=== PATIENT | male | born 1950 | race Caucasian/White ===

== ENCOUNTER 2018-10-01 23:35 | Inpatient (IN) | payer MEDICARE, OTHER ==
[~2018-10-01] VITALS: Ht 177.8 cm; Wt 81.1 kg
[2018-10-02] VITALS (75 sets, daily range): BP systolic 86–137; BP diastolic 65–98; PULSE 89–148; RESP 16–29; Ht 177.8 cm; Wt 81.1 kg
[2018-10-02] MEDS ORDERED: SODIUM CHLORIDE 0.9% 1L BAG IV* STA (00:04)
[2018-10-02] MEDS ORDERED: CEFEPIME 2GM/50 ML (PMX) 50 ML IVPB STA (00:04)
[2018-10-02] MEDS ORDERED: NORepinephrine 8MG/250 ML (PMX 250 ML IV STA (00:04)
[2018-10-02] MEDS ORDERED: VANCOMYCIN 1 GM (PMX) 250 ML IVPB ONE (00:30)
[2018-10-02] MEDS ORDERED: SUCCINYLCHOLINE CHLORIDE 100 MG/5 ML SYG IV ONE (00:30)
--- NOTE | 2018-10-02 02:03 | QN ---
Documentation Comment H&P dict a/p 1. sepsis?, presumed pneumonia, however no cxr to review, not urinary source, consider also non-infectious causes of hypovolemia 2. DM OOC with glucose >700, anion gap >30, await abg, high volume fluids, doubt DKA, suspect acidosis and gap related acute renal failure 3. numerous prior cva 4. acute renal failure, likely pre-renal, check renal us and fractional excretion Sodium (b) hyperrosmolar, give IVF (c) hyperNa 5. resp failure, cont vent support 6. cards: elevated trop, trend values, check echo (b) support bp with pressor prn (c) hx a fib CANDELARIA ARROYO MD Oct 02, 2018 02:03
[2018-10-02] MEDS ORDERED: ACCU-CHEK XX SCH (02:30)
[2018-10-02] MEDS ORDERED: PIPER-TAZO 3.375 GM IV (PMX) 100 ML IVPB SCH (02:30)
[2018-10-02] MEDS ORDERED: DEXTROSE 50% 50 ML SYRINGE IV PRN ×4 (02:30→03:00)
[2018-10-02] MEDS ORDERED: SOD CHLORIDE 0.9% 1,000 ML IV SCH (02:30)
[2018-10-02] MEDS ORDERED: ONDANSETRON 4 MG INJ IV PRN (02:30)
[2018-10-02] MEDS ORDERED: VANCOMYCIN IV PER PHARMACY XX SCH (02:30)
[2018-10-02] MEDS ORDERED: ACETAMINOPHEN 325 MG TAB PO PRN (02:30)
[2018-10-02] MEDS ORDERED: NA POLYST SULFON 15 GM/60 ML BTL PO ONE (02:30)
[2018-10-02] MEDS ORDERED: morphine 2 MG INJ IV PRN (02:30)
--- NOTE | 2018-10-02 02:35 | ERD ---
ER Documentation Chief Complaint Chief Complaint HYPOTENSION HPI This is a 68-year-old male sent in from intermediate facility for lethargy and hypotension. Found to have an elevated heart rate as well. History per EMS run sheet skilled nursing transfer she as patient cannot provide history at this time. ROS All systems reviewed and are negative except as per history of present illness. Physical Exam Vitals Vital Signs Date Temp Pulse Resp B/P (MAP) Pulse Ox O2 O2 Flow FiO2 Time Delivery Rate 10/02/18 144 27 99 50 01:14 10/01/18 97.6 56 30 77/45 (56) 97 23:57 10/01/18 Bag Valve 15 23:47 Mask Physical Exam Const: No acute distress Head: Atraumatic Eyes: Normal Conjunctiva ENT: Normal External Ears, Nose and Mouth. Neck: Full range of motion. No meningismus. Resp: Clear to auscultation bilaterally Cardio: Regular rate and rhythm, no murmurs Abd: Soft, non tender, non distended. Normal bowel sounds Skin: No petechiae or rashes Back: No midline or flank tenderness Ext: No cyanosis, or edema Neur: Awake and alert Psych: Normal Mood and Affect Result Diagram: 10/01/18 0002 10/01/18 0100 Results 24 hrs Laboratory Tests Test 10/01/18 00:02 10/01/18 01:00 10/01/18 01:37 10/02/18 00:09 White Blood 23.3 10^3/ul Count Red Blood Count 6.16 10^6/ul Hemoglobin 18.0 g/dl Hematocrit 60.1 % Mean Corpuscular 97.6 fl Volume Mean Corpuscular 29.2 pg Hemoglobin Mean Corpuscular 30.0 g/dl Hemoglobin Maureen nt Red Cell 11.9 % Distribution Width Platelet Count 394 10^3/UL Mean Platelet 12.3 fl Volume Immature 0.600 % Granulocytes % Neutrophils % 89.1 % Lymphocytes % 4.0 % Monocytes % 5.9 % Eosinophils % 0.0 % Basophils % 0.4 % Nucleated Red 0.0 /100WBC Blood Cells % Immature 0.130 10^3/ul Granulocytes # Neutrophils # 20.8 10^3/ul Lymphocytes # 0.9 10^3/ul Monocytes # 1.4 10^3/ul Eosinophils # 0.0 10^3/ul Basophils # 0.1 10^3/ul Nucleated Red 0.0 10^3/ul Blood Cells # Prothrombin Time 18.8 Sec Prothrombin Time 1.5 Ratio INR 1.56 International Normalized Ratio Activated 45.4 Sec Partial Thrombop last Time Sodium Level 157 mmol/L Potassium Level 5.6 mmol/L Chloride Level 116 mmol/L Carbon Dioxide 16 mmol/L Level Anion Gap 25 Blood Urea 109 mg/dl Nitrogen Creatinine 5.44 mg/dl Est Glomerular 11 mL/min Filtrat Rate mL/min Glucose Level 717 mg/dl Calcium Level 8.8 mg/dl Troponin I 0.250 ng/ml Urine Color YELLOW Urine Clarity SLIGHTLY CLOUDY Urine pH 5.0 Urine Specific 1.016 [place] Urine Ketones NEGATIVE mg/dL Urine Nitrite NEGATIVE mg/dL Urine Bilirubin NEGATIVE mg/dL Urine NEGATIVE mg/dL Urobilinogen Urine Leukocyte NEGATIVE Brian/ul Esterase Urine 45 /HPF Microscopic RBC Urine 2 /HPF Microscopic WBC Urine Hemoglobin 2+ mg/dL Urine Glucose 3+ mg/dL Urine Total 2+ mg/dl Protein POC Venous 7.4 mmol/L Lactate Test 10/02/18 01:30 Blood Gas Blood arterial Specimen Source Arterial Blood 10/02/2018 1:50: Date Drawn 46 AM Arterial Blood 7.289 pH (Temp corrected) Arterial Blood 33.1 mmhg pCO2 (Temp correct) Arterial Blood 100.7 mmHG pO2 (Temp corrected) Arterial Blood 15.5 mmol/L HCO3 Arterial Blood -9.8 mmol/L Base Excess Arterial Blood 96.7 mmHG Oxygen Saturatio n Justice Test ACCEPTAB Arterial Blood Right Radial Gas Puncture Site Arterial 0 % Blood Carboxyhem oglobin Arterial Blood 0.4 % Methemoglobin Blood Gas A-a O2 218.6 mmHg Differential Oxyhemoglobin 96.3 % Percent Blood Gas 37.0 C Temperature Blood Gas 16.0 Respiration Rate Blood Gas Actual 20 Respiration Rate Blood Gas VENT - AC Modality FiO2 50.0 % Blood Gas Tidal 500.0 mL Volume Blood Gas Low 5.0 cmH2O PEEP Setting Blood Gas D MANA BAILON Critical Value Read Back Blood Gas UP Notified Whom Blood Gas 10/02/2018 2:10: Notified Time 47 AM Current Medications Medications Dose Sig/Marcie Start Time Status Last (Trade) Ordered Route PRN Stop Time Admin Dose Reason Admin Sodium 2,450 ml BOLUS OVER 2 10/02/18 DC 10/02/18 Chloride HOURS STAT 00:04 00:15 (NS) IV* 10/02/18 00:06 250 ml @ ONCE STAT 10/02/18 10/02/18 Norepinephrin 7.5 mls/hr IV 00:04 00:39 e 10/03/18 09:23 Cefepime HCl 50 ml @ ONCE STAT 10/02/18 DC 10/02/18 100 mls/hr IVPB 00:04 00:15 10/02/18 00:33 Vancomycin 250 ml @ ONCE ONCE 10/02/18 10/02/18 HCl 125 mls/hr IVPB 00:30 00:45 10/02/18 02:29 100 mg ONCE ONCE 10/02/18 DC 10/02/18 Succinylcholi IV 00:30 00:25 ne Chloride 10/02/18 00:31 (Anectine Syringe) Sodium 1,000 ml @ Q4H IV 10/02/18 UNV Chloride 250 mls/hr 02:30 Discontinue PROTOCOL 10/02/18 UNV Miscellaneous all previ... ONCE XX 02:30 10/02/18 02:31 Information (* Miscellaneous Pharmacy Order) Diagnostic 1 ea Q1H XX 10/02/18 UNV Test (Pha) 02:30 (Accu-Chek) Treatment Per 10/02/18 UNV Miscellaneous of protocol XX 02:30 Hypoglycemia: Information 1.BG 51... (* Miscellaneous Pharmacy Order) Dextrose 25 ml Q15M PRN 10/02/18 UNV (D50w IV DECREASED 02:30 Syringe) GLUCOSE Dextrose 50 ml Q15M PRN 10/02/18 UNV (D50w IV DECREASED 02:30 Syringe) GLUCOSE Sodium 1,000 ml @ Q4H IV 10/02/18 UNV Chloride 250 mls/hr 02:30 Vancomycin VANCOMYCIN PER 10/02/18 UNV HCl (Vanco PER PHARMACY PROTOCOL XX 02:30 Iv Per Pharmacy) Piperacillin 100 ml @ Q8H IVPB 10/02/18 UNV Sod/ 200 mls/hr 02:30 Tazobactam Sod 650 mg Q4H PRN 10/02/18 UNV Acetaminophen PO 02:30 (Tylenol pain/fever Tab) Ondansetron 4 mg Q4H PRN 10/02/18 UNV HCl (Zofran IV nausea 02:30 Inj) Morphine 2 mg Q2 PRN IV 10/02/18 UNV Sulfate pain 02:30 (morphine) Procedures/MDM EKG: Rate/Rhythm: Sinus tachycardia QRS, ST, T-waves: ST elevations noted in precordial leads Impression: [No evidence of ischemia or arrhythmia] [facility] sent over an EKG from last week that was demonstrating unchanged ST elevations Chest X-ray 1V Interpreted by me: Soft Tissue: No acute abnormalities Bones: No acute abnormalities Mediastinum/Cardiac Silhouette/Lungs: Right lower lobe pneumonia Patient's infectious symptoms have not stabilized and the patient is at risk of rapid decompensation. The patient will be admitted for careful hydration, antibiotic therapy, and infectious source control. Severe Sepsis Assessment: Infectious Source: Pneumonia End organ damage indicated by: [Lactate > 2.0 mmol/L Hypotension( SBP < 90 or >40 mmHG drop or MAP < 65) Acute Resp Failure (sat < 92% w/o oxygen) Severe Sepsis Managment: Blood Cultures X 2 before broad spectrum antibiotics initiated within 3 hours of recognition. 30 ml/kg NS bolus Completed Initial Lactate: 7.1 Repeat Lactate pending Critical Care: Time: 45 minutes, independent of any separately billable procedural time Treatments/Evaluations: Emergent fluid management, while maintaining close respiratory support. Immediate broad spectrum antibiotic therapy. Simultaneous assessment for possible sources in order to direct therapy. Consideration for invasive and chemical support to prevent respiratory or cardia c collapse. Septic Shock Assessment (1 hour post 30 ml/kg fluid bolus): Hypotension (SBP < 90 or 40 mmHg drop, MAP < 65): Yes Lactic acid > 4.0 yes Perfusion Reassessment for Septic Shock: Temp 98.1, pulse 77, respiratory rate 30, blood pressure 96/70 Heart Exam: [Tachycardic] Lung Exam: [No Crackles] Capillary Refill: [Delayed] Peripheral Pulses: [Radially present] Skin: [Mottled, pale] Hypotensive Treatment (not required for isolated lactic acid elevation): Comfort Care: No Central LIne: Left subclavian Vasopressor started: [norepinephrine] Accepting Care Team: Current data and ongoing care discussed. Time: 1 AM Primary Provider: Derrek Consulting: Deferred to inpatient team Outstanding Data: none Endotracheal Intubation by me: Pre assessment performed. See preceding note for details. Pre-oxygenation performed with 100% oxygen RSI: Performed w/o complication or hypoxic events. Medications as ordered. Blade: [Mac 4] ET Tube: 7.5 cm Depth: 22 cm at the lip Intubation confirmed by colorimetric CO2, equal breath sounds, quiet over the stomach. Chest X-ray 1V Interpreted by me: 2 cm above the isadora ET tube. Normal soft tissue, No pneumothorax. Central Line Placement by me: Patient consented, sterilely draped, full prep, gown, glove, mask, time out performed. Anesthesia: 1% lidocaine locally Location: Left subclavian Device: Multiple lumen Technique: Seldinger technique. Secured with suture. Results: Venous return from all ports with easy saline flush. No complications. [Chest X-ray 1V Interpreted by me: Central line in SVC, Normal soft tissue, No evidence of pneumothorax.] Departure Diagnosis: Primary Impression: Septic shock Additional Impression: Hypotension Hypotension type: unspecified hypotension type Qualified Codes: I95.9 - Hypotension, unspecified Condition: Critical JULIO ADAIR Oct 02, 2018 02:35
[2018-10-02] MEDS: ACCU-CHEK XX SCH ×20 (03:00→23:10)
[2018-10-02] MEDS: SOD CHLORIDE 0.9% 1,000 ML IV SCH ×2 (03:14→07:48)
[2018-10-02] MEDS ORDERED: FAMO20TA18 PO (03:25)
[2018-10-02] MEDS ORDERED: NA P230E RC (03:25)
[2018-10-02] MEDS ORDERED: TYL650R PR (03:25)
[2018-10-02] MEDS ORDERED: BISA10SU55 RC (03:25)
[2018-10-02] MEDS ORDERED: INSU100C SQ (03:25)
[2018-10-02] MEDS ORDERED: AMLO2.5T78 PO (03:25)
[2018-10-02] MEDS ORDERED: LANT3I SC (03:25)
[2018-10-02] MEDS ORDERED: ATOR40TA68 PO (03:25)
[2018-10-02] MEDS ORDERED: AMLO-321 PO (03:25)
[2018-10-02] MEDS ORDERED: APIX2.5T PO (03:25)
[2018-10-02] MEDS ORDERED: CARAS PO (03:25)
[2018-10-02] MEDS ORDERED: METO25TA4 GTB (03:42)
[2018-10-02] MEDS ORDERED: KEP100S PO (03:42)
[2018-10-02] MEDS ORDERED: PROT946L PO (03:42)
[2018-10-02] MEDS ORDERED: ASCO500C7 GTB (03:42)
[2018-10-02] MEDS ORDERED: LOSA100T15 GTB (03:42)
[2018-10-02] MEDS: LEVETIRACETAM 1000 MG (PMX) 100 ML IVPB SCH ×2 (04:13→21:55)
[2018-10-02] MEDS: PIPER-TAZO 2.25 GM (PMX) 50 ML IVPB SCH ×3 (04:14→21:55)
[2018-10-02] MEDS ORDERED: VANCOMYCIN HCL 1.75 GM in SOD CHLORIDE 0.9% 500 ML IVPB SCH (04:30)
[2018-10-02] MEDS ORDERED: VANCOMYCIN 750 MG (PMX) 250 ML IVPB SCH (05:00)
--- NOTE | 2018-10-02 05:10 | HP ---
DATE OF ADMISSION: 10/01/2018 CHIEF COMPLAINT: Hypotension. HISTORY OF PRESENTING ILLNESS: Mr. Escobar is referred to the emergency room at [facility] th low blood pressures which are noted over at his [facility] facility. He apparently was admit anamaria to [facility] just after [place] and spent several days in the hospital related to a stroke. Donna seth has had numerous strokes in the past and was referred to [facility] facility following this ho spitalization and is sent here to the emergency room. At this time, there is no family at the medical [facility] and the patient is intubated and unable to provide additional history. PAST MEDICAL HISTORY: Significant for atrial fibrillation, numerous strokes. MEDICATIONS OUTPATIENT: Did not accompany the patient from the [facility] facility. ALLERGIES: NONE KNOWN. SOCIAL HISTORY: Unclear at this time. FAMILY HISTORY: Unknown. REVIEW OF SYSTEMS: Unobtainable secondary to patient's status. PHYSICAL EXAMINATION: VITAL SIGNS: Blood pressure is 75/45, pulse rate 144, respirations are 30, temperature is 97.6, satt ing 99% on FiO2 of 50%. GENERAL: Middle-aged man lying in bed, intubated, no response to voice, does not resist examination. HEENT: Normocephalic, atraumatic without evident scleral icterus, perioral cyanosis. Mucous membran es are dry. NECK: Soft and supple without masses. No evidence of jugular venous distention or carotid bruits. CHEST: Clear to auscultation and percussion anteriorly. HEART: Tachycardic. S1, S2. No added sounds. ABDOMEN: Soft, nontender, nondistended without palpable hepatosplenomegaly. EXTREMITIES: Without clubbing, cyanosis or edema. SKIN: Without rashes. NEUROLOGIC: The patient is not cooperative with exam, but does show contractures especially of the r ight leg. LABORATORY STUDIES: Reveal a hemoglobin of 18 g/dL, white count of 23,300, platelets of 394,000. IN R is 1.5. Sodium 157, potassium 5.6, chloride 116, bicarbonate 16, BUN 109, creatinine 5.44, glucose of 717. Troponin is 0.250. Lactic acid 7.4. UA is negative for signs of infection. DIAGNOSTIC DATA: Chest x-ray does not reveal any acute infiltrates or effusions. ASSESSMENT AND PLAN: 1. Hypotension of unclear etiology. I suspect this is a sepsis-related syndrome. Most likely etiol ogy is aspiration pneumonia not currently noted on chest x-ray. Plan to repeat x-ray in the future. Give aggressive hydration. Support blood pressure with Levophed. 2. Diabetes out of control, glucose 700 currently. This undoubtedly is exacerbating hypovolemia. P marcial to give aggressive hydration, insulin drip. At this point in time, I do not believe there is any ketoacidosis and that acidosis is currently related to renal failure and lactic acidosis. 3. Renal: The patient with acute renal failure almost certainly related to hypovolemia. Check frac tional excretion of sodium and renal ultrasound. Give aggressive hydration. Renal consult. 4. Cardiac: The patient with atrial fibrillation, currently tachycardic. Get to euvolemic and then reevaluate. Hypotension support with pressor. Elevation of troponin. Trend values. Obtain echo. Cardiology consultation. 5. Pulmonary: The patient with respiratory failure related to acidosis and sepsis. Continue ventil ator support. Pulmonary consultation. 6. Neurologic. The patient with numerous prior strokes. 7. Prophylaxis with SCDs at this time. Give Protonix. Dictated By: CANDELARIA ARROYO MD RER/NTS Conf#: [id number] DID#: [id number] CC: JOSE STEWART DO; JULIO ADAIR MD;*End*
[2018-10-02] MEDS ORDERED: SODIUM POLYSTYRENE 15 GM KIT (POWDER + SORBITOL) PO ONE (05:44)
[2018-10-02] MEDS: PANTOPRAZOLE 40 MG INJ IV SCH (05:52)
[2018-10-02] MEDS: INSULIN HUMAN REGULAR 100 UNIT in SOD CHLORIDE 0.9% 99 ML IV SCH ×3 (06:09→18:10)
--- NOTE | 2018-10-02 08:33 | CONS ---
Date/Time of Note Date/Time of Note DATE: 10/02/18 TIME: 08:33 Assessment/Plan Assessment/Plan Assessment/Plan 1. acute kidney injury on CKD unknown baseline Cr due to ATN from septic shock + severe prerenal azotemia from DKA 2. Acute hyperkalemia due to RIVAS 3. Acute hypernatremia due to severe dehydration from Hyperglycemia hyperosmolar State 4. Acute respiratory failure possible due to Aspiration PNA + septic shock, intubated on ventilator 5. Septic shock 2/2 Aspiration PNA 6. Intracranial bleeding 7. H/o atrial fibrillation on Eliquis unitl admission 8. H/o HTN 9. Acute on chronic encephalopathy 10. Elevated Troponin 11. Dysphagia secondary to CVA s/p G tube placement 12. Recent acute CVA and status post aneurysm and hematoma evacuation in 2016, patient on Keppra for seizure prophylaxis. Again baseline significant encephalopathy and mostly bedbound for the past 2 years with recent worsening few weeks ago. Plan: Seen in ICU d/c current IVF, I will start pt on IVF 1/2 NS with 1 ampoule of sodium bicarbonate to run at 100 cc/hr due to hypernatremia and acidosis Renal US has been done which is unremarkable except left kidney cyst ventilator care as per pulmonary Urine output 1.1 liter since morning IV abx to cover him for HCAP- Renally dose all abx and monitor electrolytes Neurosurgery has been consulted for ICH< not a surgical candidate due to Hemodyanic instabilicy and metablic derangement Thanks for Consultation, I will continue to follow up Result Diagram: 10/02/18 0435 10/02/18 0435 Results 24hrs Laboratory Tests Test 10/02/18 00:09 10/02/18 01:15 10/02/18 01:30 10/02/18 01:34 POC Venous 7.4 *H Lactate Urine Total 89.0 H Protein Blood Gas Blood arterial Specimen Source Arterial Blood 10/02/2018 1:50:4 Date Drawn 6 AM Arterial Blood pH 7.289 *L (Temp corrected) Arterial Blood 33.1 L pCO2 (Temp correct) Arterial Blood 100.7 H pO2 (Temp corrected) Arterial Blood 15.5 L HCO3 Arterial Blood -9.8 L Base Excess Arterial Blood 96.7 Oxygen Saturation Justice Test ACCEPTAB Arterial Blood Right Radial Gas Puncture Site Arterial 0 Blood Carboxyhemo globin Arterial Blood 0.4 Methemoglobin Blood Gas A-a O2 218.6 H Differential Oxyhemoglobin 96.3 Percent Blood Gas 37.0 Temperature Blood Gas 16.0 Respiration Rate Blood Gas Actual 20 Respiration Rate Blood Gas VENT - AC Modality FiO2 50.0 Blood Gas Tidal 500.0 Volume Blood Gas Low 5.0 PEEP Setting Blood Gas D MANA BAILON Critical Value Read Back Blood Gas UP Notified Whom Blood Gas 10/02/2018 2:10:4 Notified Time 7 AM Urine Ketones NEGATIVE Urine Random 93.65 Creatinine Urine Random 25 L Sodium Test 10/02/18 02:40 10/02/18 04:12 10/02/18 04:35 10/02/18 05:53 POC Venous 4.0 *H Lactate Bedside Glucose 558 *H > 595 *H White Blood Count 20.3 H Red Blood Count 4.62 #L Hemoglobin 13.9 #L Hematocrit 46.1 # Mean Corpuscular 99.8 Volume Mean Corpuscular 30.1 Hemoglobin Mean Corpuscular 30.2 L Hemoglobin Concen t Red Cell 12.1 Distribution Width Platelet Count 255 # Mean Platelet 12.5 H Volume Immature 0.400 Granulocytes % Neutrophils % Segmented 50 Neutrophils % (Manual) Band Neutrophils 27 H % (Manual) Lymphocytes % Lymphocytes % 12 L (Manual) Monocytes % Monocytes % 8 (Manual) Eosinophils % Basophils % Metamyelocytes % 2 H (manual) Myelocytes % 1 H (Manual) Nucleated Red 0.0 Blood Cells % Immature 0.090 H Granulocytes # Neutrophils # Neutrophils # 11.2 H (Manual) Band Neutrophils 5.4 H # Lymphocytes 2.4 (Manual) Lymphocytes # Monocytes # Monocytes # 1.6 H (Manual) Eosinophils # Basophils # Metamyelocytes # 0.4 H Myelocytes # 0.2 H Nucleated Red Blood Cells # Platelet Estimate NORMAL Poikilocytosis 1+ Sodium Level 154 H Potassium Level 5.2 H Chloride Level 125 H Carbon Dioxide 18 L Level Anion Gap 11 # Blood Urea 102 H Nitrogen Creatinine 4.43 #H Est Glomerular 13 L Filtrat Rate mL/min Glucose Level 654 *H Lactic Acid Level 3.8 *H Calcium Level 7.6 L Troponin I 0.476 *H Test 10/02/18 07:05 10/02/18 07:50 Bedside Glucose 563 *H 547 *H Consultation Date/Type/Reason Admit Date/Time Oct 02, 2018 at 01:47 Date of Consultation: Oct 02, 2018 Type of Consult NEPHROLOGY Reason for Consultation Acute Kidney injury on CKD III, Hyperkalemia, Acidosis , Hypernatremia Requesting Provider: CANDELARIA ARROYO MD Hx of Present Illness 68 M with PMHx of chronic encephalopathy and H/o CVA, HTN , who has been admit anamaria from SNF with Hypotension and confusio, pt was noted to have acute DKA requiring Insulin gtt, had a Acute renal failure, acute respiratory failure requiring Intubation and ventilator care. Pulmonary has been following. 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 On admission BUN/Cr 109/5.44, K 5.6, HCo3 16- with DKA - on Insulin gtt- admitted to ICU. Renal has been consulted for acute kidney injury, Severe metabolic acidosis, Hyperkalemia and Hypernatremia. Subjective hx not possible: pt non-verbal, pt critical status, other (intubated on ventilator - unable to obtain due to intubation) Past Medical History Medical History: high cholesterol, hypertension, other (H/o CVA< H/o Chornic encephalopathy) Medications Current Medications Norepinephrine 250 ml @ 7.5 mls/hr ONCE STAT IV Last administered on 10/02/18at 00:39; Admin Dose 7.5 MLS/HR; Start 10/02/18 at 00:04; Stop 10/03/18 at 09:23 Sodium Chloride 1,000 ml @ 250 mls/hr Q4H IV Last administered on 10/02/18at 07:48; Admin Dose 250 MLS/HR; Start 10/02/18 at 02:30 Vancomycin HCl (Vanco Iv Per Pharmacy) VANCOMYCIN PER PHARMACY PER PROTOCOL XX ; Start 10/02/18 at 02:30 Acetaminophen (Tylenol Tab) 650 mg Q4H PRN PO pain/fever; Start 10/02/18 at 02:30 Ondansetron HCl (Zofran Inj) 4 mg Q4H PRN IV nausea; Start 10/02/18 at 02:30 Morphine Sulfate (morphine) 2 mg Q2 PRN IV pain; Start 10/02/18 at 02:30 Pantoprazole (Protonix Iv) 40 mg DAILY@0600 IV Last administered on 10/02/18at 05:52; Admin Dose 40 MG; Start 10/02/18 at 06:00 Diagnostic Test (Pha) (Accu-Chek) 1 ea Q1H XX Last administered on 10/02/18at 05:00; Admin Dose 1 EA; Start 10/02/18 at 03:00 Insulin Human Regular 100 unit/ Sodium Chloride 100 ml @ 0 mls/hr PER PROTOCOL IV Last administered on 10/02/18at 06:09; Admin Dose 6 MLS/HR; Start 10/02/18 at 03:00 Miscellaneous Information (* Miscellaneous Pharmacy Order) Treatment of Hypoglycemia: 1.BG 51... Per protocol XX ; Start 10/02/18 at 03:00 Dextrose (D50w Syringe) 25 ml Q15M PRN IV DECREASED GLUCOSE; Start 10/02/18 at 03:00 Dextrose (D50w Syringe) 50 ml Q15M PRN IV DECREASED GLUCOSE; Start 10/02/18 at 03:00 Levetiracetam 100 ml @ 400 mls/hr Q12 IVPB Last administered on 10/02/18at 04:13; Admin Dose 400 MLS/HR; Start 10/02/18 at 04:00 Piperacillin Sod/ Tazobactam Sod 50 ml @ 100 mls/hr Q8 IVPB Last administered on 10/02/18at 04:14; Admin Dose 100 MLS/HR; Start 10/02/18 at 03:30 Allergies: Coded Allergies: No Known Allergy (Unverified , 10/02/18) Past Surgical History Past Surgical Hx: other (H/o surgery for brain aneurysm ) Family History Significant Family History: other (not available ) Social History Alcohol Use: none Smoking Status: Unknown if ever smoked Drug Use: none Exam/Review of Systems Vital Signs Vitals Vital Signs Date Temp Pulse Resp B/P (MAP) Pulse Ox O2 O2 Flow FiO2 Time Delivery Rate 10/02/18 109 22 96/75 (82) 100 08:30 10/02/18 50 08:00 10/02/18 97.7 Mechanical 08:00 Ventilator 10/01/18 15.0 23:52 Intake and Output 10/01/18 10/01/18 10/02/18 1414:59 22:59 06:59 IntakeIntake Total 3786.25 ml OutputOutput Total 375 ml BalanceBalance 3411.25 ml Exam Constitutional: non-verbal, distress (moderate distress, ) ENMT: intubated (on ventilator) Neck: supple Respiratory: congested cough, crackles/rales, diminished breath sounds Cardiovascular: edema, irregular rhythm Gastrointestinal: soft, non-tender, other (G tube in place ) Musculoskeletal: swelling Neurological: other (on Ventilator, unresponsive ) Medications Medications Current Medications Norepinephrine 250 ml @ 7.5 mls/hr ONCE STAT IV Last administered on 10/02/18at 00:39; Admin Dose 7.5 MLS/HR; Start 10/02/18 at 00:04; Stop 10/03/18 at 09:23 Sodium Chloride 1,000 ml @ 250 mls/hr Q4H IV Last administered on 10/02/18at 07:48; Admin Dose 250 MLS/HR; Start 10/02/18 at 02:30 Vancomycin HCl (Vanco Iv Per Pharmacy) VANCOMYCIN PER PHARMACY PER PROTOCOL XX ; Start 10/02/18 at 02:30 Acetaminophen (Tylenol Tab) 650 mg Q4H PRN PO pain/fever; Start 10/02/18 at 02:30 Ondansetron HCl (Zofran Inj) 4 mg Q4H PRN IV nausea; Start 10/02/18 at 02:30 Morphine Sulfate (morphine) 2 mg Q2 PRN IV pain; Start 10/02/18 at 02:30 Pantoprazole (Protonix Iv) 40 mg DAILY@0600 IV Last administered on 10/02/18at 05:52; Admin Dose 40 MG; Start 10/02/18 at 06:00 Diagnostic Test (Pha) (Accu-Chek) 1 ea Q1H XX Last administered on 10/02/18at 05:00; Admin Dose 1 EA; Start 10/02/18 at 03:00 Insulin Human Regular 100 unit/ Sodium Chloride 100 ml @ 0 mls/hr PER PROTOCOL IV Last administered on 10/02/18at 06:09; Admin Dose 6 MLS/HR; Start 10/02/18 at 03:00 Miscellaneous Information (* Miscellaneous Pharmacy Order) Treatment of Hypoglycemia: 1.BG 51... Per protocol XX ; Start 10/02/18 at 03:00 Dextrose (D50w Syringe) 25 ml Q15M PRN IV DECREASED GLUCOSE; Start 10/02/18 at 03:00 Dextrose (D50w Syringe) 50 ml Q15M PRN IV DECREASED GLUCOSE; Start 10/02/18 at 03:00 Levetiracetam 100 ml @ 400 mls/hr Q12 IVPB Last administered on 10/02/18at 04:13; Admin Dose 400 MLS/HR; Start 10/02/18 at 04:00 Piperacillin Sod/ Tazobactam Sod 50 ml @ 100 mls/hr Q8 IVPB Last administered on 10/02/18at 04:14; Admin Dose 100 MLS/HR; Start 10/02/18 at 03:30 KAMILA FAGAN MD Oct 02, 2018 08:33
--- NOTE | 2018-10-02 09:00 | CONS ---
Date/Time of Note Date/Time of Note DATE: 10/02/18 TIME: 08:55 Assessment/Plan Assessment/Plan Assessment/Plan Chest x-ray showing minimal patchy infiltrates. Patient is currently on assist control of 16, tidal volume 500, PEEP of 5, 50% FiO2. Assessment and recommendations; next 1. Patient with history of CVA and apparent chronic encephalopathy admitted for severe hyperglycemia and DKA. 2. Likely ongoing sepsis with possibility of bilateral pneumonia. Patient currently on appropriate antimicrobial regimen. 3. Intravascular volume depletion with likely acute on chronic renal injury. 4. Metabolic acidosis. 5. Hypotension, requiring pressor support. 6. History of seizure disorder. 7. Hypernatremia due to intravascular volume depletion. 8. Chronic atrial fibrillation. Continue current supportive care. Add free water via PEG tube for correction of intravascular volume depletion as well as severe hypernatremia. Obtain follow- up chest x-ray 24 hours. Wean down pressor support as tolerated. Monitor renal function. Patient may require dialysis. 40 minutes of critical care time was spent evaluating the patient. Result Diagram: 10/02/18 0435 10/02/18 0435 Results 24hrs Laboratory Tests Test 10/02/18 00:09 10/02/18 01:15 10/02/18 01:30 10/02/18 01:34 POC Venous 7.4 *H Lactate Urine Total 89.0 H Protein Blood Gas Blood arterial Specimen Source Arterial Blood 10/02/2018 1:50:4 Date Drawn 6 AM Arterial Blood pH 7.289 *L (Temp corrected) Arterial Blood 33.1 L pCO2 (Temp correct) Arterial Blood 100.7 H pO2 (Temp corrected) Arterial Blood 15.5 L HCO3 Arterial Blood -9.8 L Base Excess Arterial Blood 96.7 Oxygen Saturation Justice Test ACCEPTAB Arterial Blood Right Radial Gas Puncture Site Arterial 0 Blood Carboxyhemo globin Arterial Blood 0.4 Methemoglobin Blood Gas A-a O2 218.6 H Differential Oxyhemoglobin 96.3 Percent Blood Gas 37.0 Temperature Blood Gas 16.0 Respiration Rate Blood Gas Actual 20 Respiration Rate Blood Gas VENT - AC Modality FiO2 50.0 Blood Gas Tidal 500.0 Volume Blood Gas Low 5.0 PEEP Setting Blood Gas D MANA BAILON Critical Value Read Back Blood Gas UP Notified Whom Blood Gas 10/02/2018 2:10:4 Notified Time 7 AM Urine Ketones NEGATIVE Urine Random 93.65 Creatinine Urine Random 25 L Sodium Test 10/02/18 02:40 10/02/18 04:12 10/02/18 04:35 10/02/18 05:53 POC Venous 4.0 *H Lactate Bedside Glucose 558 *H > 595 *H White Blood Count 20.3 H Red Blood Count 4.62 #L Hemoglobin 13.9 #L Hematocrit 46.1 # Mean Corpuscular 99.8 Volume Mean Corpuscular 30.1 Hemoglobin Mean Corpuscular 30.2 L Hemoglobin Concen t Red Cell 12.1 Distribution Width Platelet Count 255 # Mean Platelet 12.5 H Volume Immature 0.400 Granulocytes % Neutrophils % Segmented 50 Neutrophils % (Manual) Band Neutrophils 27 H % (Manual) Lymphocytes % Lymphocytes % 12 L (Manual) Monocytes % Monocytes % 8 (Manual) Eosinophils % Basophils % Metamyelocytes % 2 H (manual) Myelocytes % 1 H (Manual) Nucleated Red 0.0 Blood Cells % Immature 0.090 H Granulocytes # Neutrophils # Neutrophils # 11.2 H (Manual) Band Neutrophils 5.4 H # Lymphocytes 2.4 (Manual) Lymphocytes # Monocytes # Monocytes # 1.6 H (Manual) Eosinophils # Basophils # Metamyelocytes # 0.4 H Myelocytes # 0.2 H Nucleated Red Blood Cells # Platelet Estimate NORMAL Poikilocytosis 1+ Sodium Level 154 H Potassium Level 5.2 H Chloride Level 125 H Carbon Dioxide 18 L Level Anion Gap 11 # Blood Urea 102 H Nitrogen Creatinine 4.43 #H Est Glomerular 13 L Filtrat Rate mL/min Glucose Level 654 *H Lactic Acid Level 3.8 *H Calcium Level 7.6 L Troponin I 0.476 *H Test 10/02/18 07:05 10/02/18 07:50 Bedside Glucose 563 *H 547 *H Consultation Date/Type/Reason Admit Date/Time Oct 02, 2018 at 01:47 Date of Consultation: Oct 02, 2018 Type of Consult Pulmonary/critical care Pulmonary consult requested for evaluation of respiratory failure and sepsis. History of presenting illness; patient is a 68-year-old male who was admitted to the hospital because of altered mental status with severe lethargic. Patient was diagnosed with DKA with severe hyperglycemia and had to be intubated because of respiratory failure. By the time I saw him, patient is orally intubated, on ventilator and unresponsive. Patient however did not appear to be in any distress. Past medical history; 1. History of CVA with apparent encephalopathy. 2. History of dysphagia, status post PEG tube placement. 3. Diabetes. 4. History of seizure disorder. 5. Baseline renal status is unknown. 6. Chronic atrial fibrillation. Medications; reviewed. Patient is currently on insulin drip at 16 units/h as well as Levophed at 6 mics per minute. Other medications were reviewed. Allergies; none. Occupational history, social history, family history not available. Review of system; unable to be obtained. General exam; elderly male, orally intubated, unresponsive, currently in no distress. Past Medical History Medications Current Medications Norepinephrine 250 ml @ 7.5 mls/hr ONCE STAT IV Last administered on 10/02/18at 00:39; Admin Dose 7.5 MLS/HR; Start 10/02/18 at 00:04; Stop 10/03/18 at 09:23 Sodium Chloride 1,000 ml @ 250 mls/hr Q4H IV Last administered on 10/02/18at 07:48; Admin Dose 250 MLS/HR; Start 10/02/18 at 02:30 Vancomycin HCl (Vanco Iv Per Pharmacy) VANCOMYCIN PER PHARMACY PER PROTOCOL XX ; Start 10/02/18 at 02:30 Acetaminophen (Tylenol Tab) 650 mg Q4H PRN PO pain/fever; Start 10/02/18 at 02:30 Ondansetron HCl (Zofran Inj) 4 mg Q4H PRN IV nausea; Start 10/02/18 at 02:30 Morphine Sulfate (morphine) 2 mg Q2 PRN IV pain; Start 10/02/18 at 02:30 Pantoprazole (Protonix Iv) 40 mg DAILY@0600 IV Last administered on 10/02/18at 05:52; Admin Dose 40 MG; Start 10/02/18 at 06:00 Diagnostic Test (Pha) (Accu-Chek) 1 ea Q1H XX Last administered on 10/02/18at 08:40; Admin Dose 1 EA; Start 10/02/18 at 03:00 Insulin Human Regular 100 unit/ Sodium Chloride 100 ml @ 0 mls/hr PER PROTOCOL IV Last administered on 10/02/18at 06:09; Admin Dose 6 MLS/HR; Start 10/02/18 at 03:00 Miscellaneous Information (* Miscellaneous Pharmacy Order) Treatment of Hypoglycemia: 1.BG 51... Per protocol XX ; Start 10/02/18 at 03:00 Dextrose (D50w Syringe) 25 ml Q15M PRN IV DECREASED GLUCOSE; Start 10/02/18 at 03:00 Dextrose (D50w Syringe) 50 ml Q15M PRN IV DECREASED GLUCOSE; Start 10/02/18 at 03:00 Levetiracetam 100 ml @ 400 mls/hr Q12 IVPB Last administered on 10/02/18at 04:13; Admin Dose 400 MLS/HR; Start 10/02/18 at 04:00 Piperacillin Sod/ Tazobactam Sod 50 ml @ 100 mls/hr Q8 IVPB Last administered on 10/02/18at 04:14; Admin Dose 100 MLS/HR; Start 10/02/18 at 03:30 Allergies: Coded Allergies: No Known Allergy (Unverified , 10/02/18) Social History Smoking Status: Unknown if ever smoked Exam/Review of Systems Vital Signs Vitals Vital Signs Date Temp Pulse Resp B/P (MAP) Pulse Ox O2 O2 Flow FiO2 Time Delivery Rate 10/02/18 109 22 96/75 (82) 100 08:30 10/02/18 50 08:00 10/02/18 97.7 Mechanical 08:00 Ventilator 10/01/18 15.0 23:52 Intake and Output 10/01/18 10/01/18 10/02/18 1515:00 23:00 07:00 IntakeIntake Total 3798.25 ml OutputOutput Total 405 ml BalanceBalance 3393.25 ml Exam HEENT exam; supple neck, no JVD. No lymphadenopathy. Midline trachea. No thy romegaly. There is mild left parietal skull depression. Orally intubated. Patient has fair dentition. Pupils are midsize. No neck masses. Chest exam; diminished but clear breath sounds. S1-S2 audible, no murmurs. Irregular rhythm. Abdomen exam; soft, no organomegaly. PEG tube in place. Bowel sounds audible. Abdomen is nondistended. Extremity exam; no peripheral edema or clubbing. Pulses 1+. CORE DROPPER exam; patient is noncommunicative. Medications Medications Current Medications Norepinephrine 250 ml @ 7.5 mls/hr ONCE STAT IV Last administered on 10/02/18at 00:39; Admin Dose 7.5 MLS/HR; Start 10/02/18 at 00:04; Stop 10/03/18 at 09:23 Sodium Chloride 1,000 ml @ 250 mls/hr Q4H IV Last administered on 10/02/18at 07:48; Admin Dose 250 MLS/HR; Start 10/02/18 at 02:30 Vancomycin HCl (Vanco Iv Per Pharmacy) VANCOMYCIN PER PHARMACY PER PROTOCOL XX ; Start 10/02/18 at 02:30 Acetaminophen (Tylenol Tab) 650 mg Q4H PRN PO pain/fever; Start 10/02/18 at 02:30 Ondansetron HCl (Zofran Inj) 4 mg Q4H PRN IV nausea; Start 10/02/18 at 02:30 Morphine Sulfate (morphine) 2 mg Q2 PRN IV pain; Start 10/02/18 at 02:30 Pantoprazole (Protonix Iv) 40 mg DAILY@0600 IV Last administered on 10/02/18at 05:52; Admin Dose 40 MG; Start 10/02/18 at 06:00 Diagnostic Test (Pha) (Accu-Chek) 1 ea Q1H XX Last administered on 10/02/18at 08:40; Admin Dose 1 EA; Start 10/02/18 at 03:00 Insulin Human Regular 100 unit/ Sodium Chloride 100 ml @ 0 mls/hr PER PROTOCOL IV Last administered on 10/02/18at 06:09; Admin Dose 6 MLS/HR; Start 10/02/18 at 03:00 Miscellaneous Information (* Miscellaneous Pharmacy Order) Treatment of Hypoglycemia: 1.BG 51... Per protocol XX ; Start 10/02/18 at 03:00 Dextrose (D50w Syringe) 25 ml Q15M PRN IV DECREASED GLUCOSE; Start 10/02/18 at 03:00 Dextrose (D50w Syringe) 50 ml Q15M PRN IV DECREASED GLUCOSE; Start 10/02/18 at 03:00 Levetiracetam 100 ml @ 400 mls/hr Q12 IVPB Last administered on 10/02/18at 04:13; Admin Dose 400 MLS/HR; Start 10/02/18 at 04:00 Piperacillin Sod/ Tazobactam Sod 50 ml @ 100 mls/hr Q8 IVPB Last administered on 10/02/18at 04:14; Admin Dose 100 MLS/HR; Start 10/02/18 at 03:30 KAYE CRUZ Oct 02, 2018 09:00
[2018-10-02] MEDS ORDERED: SOD CHLORIDE 0.45% 1,000 ML IV SCH (10:30)
--- NOTE | 2018-10-02 10:51 | PN ---
Date/Time of Note Date/Time of Note DATE: 10/02/18 TIME: 10:26 Assessment/Plan VTE Prophylaxis Risk score (from Ns)>0 risk: 8 SCD applied (from Ns): Yes Pharmacological prophylaxis: heparin Lines/Catheters IV Catheter Type (from [facility]): Saline Lock Urinary Cath still in place: Yes Reason Cath still needed: other (indicate) (Intubated and obtunded.) Assessment/Plan Assessment/Plan 68-year-old male with: 1. Septic shock, source likely aspiration pneumonia, patient currently on coverage for HCAP versus aspiration pneumonia with cefepime and vancomycin. Continue IV fluids, respiratory support with mechanical ventilation, blood pressure support with pressors, we may need to switch pressors given current tachycardia and uncontrolled A. fib if persistent. Follow-up CBC and lactic acid. Follow-up chest x-ray in a.m., follow-up on blood cultures and urine cultures. Patient full code. 2. Aspiration pneumonia, likely given that the patient is obtunded at baseline and went into respiratory failure by the time he presented in the hospital in setting of tachypnea and respiratory insufficiency. Continue vancomycin and cefepime currently. Follow-up chest x-ray and CBC in a.m. 3. Acute respiratory failure in setting of septic shock and probable aspiration pneumonia. Patient on mechanical ventilation. No pressors needed given the fact that he is obtunded at baseline. Pulmonary following. FiO2 50% Discussed with family, if patient having respiratory failure related to declining mental status and unable to protect his airway, he may need a trach eostomy if unable to extubate. 4. Acute renal failure, unclear if her baseline renal insufficiency or CKD, patient definitely significantly dehydrated and hypovolemic, he is in hyperglycemic crisis currently. No obstructive nephropathy on renal ultrasound. Patient also with hypernatremia, metabolic acidosis with component of lactic acidosis. Insulin drip and IV fluids along with free water. Repeat BMP and lactic acid pending Nephrology consulted. 5. Hyperosmolar hyperglycemic crisis, known diabetes mellitus, insulin requiring, patient currently on insulin drip along with IV fluids. Blood sugars improving slowly. A1c pending. 6. Chronic atrial fibrillation, currently in atrial fibrillation but also significantly hypovolemic, continue IV fluids and if still uncontrolled will adjust medications for heart rate control. Eliquis on hold currently. 7. Elevated troponin, in setting of acute renal failure, septic shock and A. fib with RVR. Trend troponin levels, 2D echocardiogram ordered, cardiology evaluation. 8. Encephalopathy, acute on chronic, obtunded at baseline with possible additional worsening. Patient now more hemodynamically stable, will order CT head for follow-up. 9. Hypertention, currently in septic shock, all medications on hold. 10. 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 Currently tube feeding on hold until patient more stable hopefully will resume in the next 24 hours 11. Recent acute CVA and status post aneurysm and hematoma evacuation in 2016, patient on Keppra for seizure prophylaxis. Again baseline significant encephalopathy and mostly bedbound for the past 2 years with recent worsening few weeks ago. Prophylaxis: Protonix for GI prophylaxis, heparin for DVT prophylaxis Disposition: Patient currently in ICU, intubated, on pressors and insulin drip. Discussed with daughter at bedside, currently full code. Result Diagram: 10/02/18 0435 10/02/18 0435 Results 24hrs Laboratory Tests Test 10/02/18 00:09 10/02/18 01:15 10/02/18 01:30 10/02/18 01:34 POC Venous 7.4 *H Lactate Urine Total 89.0 H Protein Blood Gas Blood arterial Specimen Source Arterial Blood 10/02/2018 1:50:4 Date Drawn 6 AM Arterial Blood pH 7.289 *L (Temp corrected) Arterial Blood 33.1 L pCO2 (Temp correct) Arterial Blood 100.7 H pO2 (Temp corrected) Arterial Blood 15.5 L HCO3 Arterial Blood -9.8 L Base Excess Arterial Blood 96.7 Oxygen Saturation Justice Test ACCEPTAB Arterial Blood Right Radial Gas Puncture Site Arterial 0 Blood Carboxyhemo globin Arterial Blood 0.4 Methemoglobin Blood Gas A-a O2 218.6 H Differential Oxyhemoglobin 96.3 Percent Blood Gas 37.0 Temperature Blood Gas 16.0 Respiration Rate Blood Gas Actual 20 Respiration Rate Blood Gas VENT - AC Modality FiO2 50.0 Blood Gas Tidal 500.0 Volume Blood Gas Low 5.0 PEEP Setting Blood Gas D MANA BAILON Critical Value Read Back Blood Gas UP Notified Whom Blood Gas 10/02/2018 2:10:4 Notified Time 7 AM Urine Ketones NEGATIVE Urine Random 93.65 Creatinine Urine Random 25 L Sodium Test 10/02/18 02:40 10/02/18 04:12 10/02/18 04:35 10/02/18 05:53 POC Venous 4.0 *H Lactate Bedside Glucose 558 *H > 595 *H White Blood Count 20.3 H Red Blood Count 4.62 #L Hemoglobin 13.9 #L Hematocrit 46.1 # Mean Corpuscular 99.8 Volume Mean Corpuscular 30.1 Hemoglobin Mean Corpuscular 30.2 L Hemoglobin Concen t Red Cell 12.1 Distribution Width Platelet Count 255 # Mean Platelet 12.5 H Volume Immature 0.400 Granulocytes % Neutrophils % Segmented 50 Neutrophils % (Manual) Band Neutrophils 27 H % (Manual) Lymphocytes % Lymphocytes % 12 L (Manual) Monocytes % Monocytes % 8 (Manual) Eosinophils % Basophils % Metamyelocytes % 2 H (manual) Myelocytes % 1 H (Manual) Nucleated Red 0.0 Blood Cells % Immature 0.090 H Granulocytes # Neutrophils # Neutrophils # 11.2 H (Manual) Band Neutrophils 5.4 H # Lymphocytes 2.4 (Manual) Lymphocytes # Monocytes # Monocytes # 1.6 H (Manual) Eosinophils # Basophils # Metamyelocytes # 0.4 H Myelocytes # 0.2 H Nucleated Red Blood Cells # Platelet Estimate NORMAL Poikilocytosis 1+ Sodium Level 154 H Potassium Level 5.2 H Chloride Level 125 H Carbon Dioxide 18 L Level Anion Gap 11 # Blood Urea 102 H Nitrogen Creatinine 4.43 #H Est Glomerular 13 L Filtrat Rate mL/min Glucose Level 654 *H Lactic Acid Level 3.8 *H Calcium Level 7.6 L Troponin I 0.476 *H Test 10/02/18 07:05 10/02/18 07:50 10/02/18 09:06 10/02/18 10:00 Bedside Glucose 563 *H 547 *H 517 *H 481 *H Subjective 24 Hr Interval Summary Free Text/Dictation Patient currently on full mechanical ventilation, on Levophed for blood pressure support, patient is obtunded at baseline, no sedation currently. Status post G- tube placement a few weeks ago in setting of another CVA that left him obtunded requiring placement of a G-tube but protecting his airways. Exam/Review of Systems Vital Signs Vitals Vital Signs Date Temp Pulse Resp B/P (MAP) Pulse Ox O2 O2 Flow FiO2 Time Delivery Rate 10/02/18 109 22 96/75 (82) 100 08:30 10/02/18 50 08:00 10/02/18 97.7 Mechanical 08:00 Ventilator 10/01/18 15.0 23:52 Intake and Output 10/01/18 10/01/18 10/02/18 1515:00 23:00 07:00 IntakeIntake Total 3798.25 ml OutputOutput Total 405 ml BalanceBalance 3393.25 ml Exam Constitutional: non-verbal (Obtunded at baseline), other (Intubated) Head: other (Status post cranial surgery for aneurysm 2 years ago, he does have a concave defect noticeable on the right of his skull) Respiratory: other Cardiovascular: irregular rhythm (Tachycardic) Gastrointestinal: soft, non-tender, other (Status post G-tube placement) Musculoskeletal: nl extremities to inspection, other (No edema clubbing or cyanosis, patient has been essentially bedbound for the past couple years) Extremities: normal pulses Neurological: lethargic, other (Obtunded at baseline) Medications Medications Current Medications Norepinephrine 250 ml @ 7.5 mls/hr ONCE STAT IV Last administered on 10/02/18at 00:39; Admin Dose 7.5 MLS/HR; Start 10/02/18 at 00:04; Stop 10/03/18 at 09:23 Vancomycin HCl (Vanco Iv Per Pharmacy) VANCOMYCIN PER PHARMACY PER PROTOCOL XX ; Start 10/02/18 at 02:30 Acetaminophen (Tylenol Tab) 650 mg Q4H PRN PO pain/fever; Start 10/02/18 at 02:30 Ondansetron HCl (Zofran Inj) 4 mg Q4H PRN IV nausea; Start 10/02/18 at 02:30 Morphine Sulfate (morphine) 2 mg Q2 PRN IV pain; Start 10/02/18 at 02:30 Pantoprazole (Protonix Iv) 40 mg DAILY@0600 IV Last administered on 10/02/18at 05:52; Admin Dose 40 MG; Start 10/02/18 at 06:00 Diagnostic Test (Pha) (Accu-Chek) 1 ea Q1H XX Last administered on 10/02/18at 09:36; Admin Dose 1 EA; Start 10/02/18 at 03:00 Insulin Human Regular 100 unit/ Sodium Chloride 100 ml @ 0 mls/hr PER PROTOCOL IV Last administered on 10/02/18at 06:09; Admin Dose 6 MLS/HR; Start 10/02/18 at 03:00 Miscellaneous Information (* Miscellaneous Pharmacy Order) Treatment of Hypoglycemia: 1.BG 51... Per protocol XX ; Start 10/02/18 at 03:00 Dextrose (D50w Syringe) 25 ml Q15M PRN IV DECREASED GLUCOSE; Start 10/02/18 at 03:00 Dextrose (D50w Syringe) 50 ml Q15M PRN IV DECREASED GLUCOSE; Start 10/02/18 at 03:00 Levetiracetam 100 ml @ 400 mls/hr Q12 IVPB Last administered on 10/02/18at 04:13; Admin Dose 400 MLS/HR; Start 10/02/18 at 04:00 Piperacillin Sod/ Tazobactam Sod 50 ml @ 100 mls/hr Q8 IVPB Last administered on 10/02/18at 04:14; Admin Dose 100 MLS/HR; Start 10/02/18 at 03:30 Sodium Chloride 1,000 ml @ 150 mls/hr Q6H40M IV ; Start 10/02/18 at 10:30 Imaging Imaging PROCEDURE: Retroperitoneal US. CLINICAL INDICATION: Renal insufficiency TECHNIQUE: Multiple sonographic images of the kidneys and retroperitoneum were obtained. The images were reviewed on a PACS workstation. COMPARISON: No prior studies are available for comparison. FINDINGS: The kidneys are normal in size, contour, cortical thickness and cortical echogenicity. The right kidney measures 11.2 cm. The left kidney measures 11.4 cm. There is a 1 cm simple cyst in the left kidney. No kidney stones are visualized. There is no evidence for hydronephrosis. The urinary bladder is decompressed by a Pan catheter. RPTAT: AA IMPRESSION: 1 cm simple cyst in the left kidney. Otherwise unremarkable. .Jayro Bhardwaj MD, MD Date Time Electronically viewed and signed by .Jayro Bhardwaj MD, on 10/02/2018 08:42 PROCEDURE: XR Chest. CLINICAL INDICATION: Endotracheal intubation. TECHNIQUE: PA and Lateral views of the chest were obtained. COMPARISON: Prior plain film chest dated today, about 43 minutes ago. FINDINGS: Endotracheal intubation is seen, with tip about 14 mm above the isadora. Endotracheal intubation has been repositioned over interval. The previously seen malposition of the endotracheal intubation is resolved over interval. Left central venous line is again seen, with tip in the superior vena cava. Nasogastric tube is seen, with tip and side port within the mid stomach, although the tip is off the bottom of the film. Lung inflation is decreased over interval. The cardiac silhouette is magnified. There are evident atherosclerotic calcifications in the mildly tortuous thoracic aorta. Right lung base atelectasis versus airspace is again seen, suggesting pneumonia in setting of sepsis. This is without significant oversize load pilot escort i nterval. No signs of pleural fluid or pneumothorax are seen. The osseous structures and soft tissues are unremarkable. IMPRESSION: 1. Successful repositioning of endotracheal intubation to place tip about 14 mm above the isadora. 2. Left central venous line is again seen, with tip in the superior vena cava. 3. Nasogastric tube is seen, with tip and side port within the mid stomach. 4. Right lung base atelectasis versus airspace disease is again seen. RPTAT: [facility] Physician Dionicio Date Time Electronically viewed and signed by Physician Dionicio on 10/02/2018 02:17 DALLAS BUSTAMANTE Oct 02, 2018 10:36
[2018-10-02] MEDS ORDERED: HEPARIN 5,000 UNIT/1 ML VIAL SC SCH (14:00)
[2018-10-02] MEDS: SODIUM BICARBONATE (IV ADD) 50 MEQ in SOD CHLORIDE 0.45% 1,000 ML IV SCH (15:47)
[2018-10-02] MEDS: BALSAM PERU/CASTOR OIL 60 GM TUBE TOP SCH ×2 (15:50→21:10)
[2018-10-02] MEDS ORDERED: SOD CHLORIDE 0.9% 250 ML IV* ONE (18:01)
--- NOTE | 2018-10-02 18:13 | QN ---
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 INR is 1.58, FFP will be given, neurosurgery consulted, case discussed with Dr. Velasco, interventions are very limited currently given the patient's hemodynamic instability also and ongoing sepsis. Patient in acute renal failure, unable to do CT angiogram of the head, MRI brain ordered. Also add MRA PROCEDURE: Noncontrast CT Head. CLINICAL INDICATION: Acute on chronic encephalopathy. History of stroke. TECHNIQUE: Noncontrast CT of the head was obtained. The administered radiation dose was CTDI vol = 39 mGy, DLP = 634 mGy-cm. DICOM images are available. One or more of the following dose reduction techniques were used: Automated exposure control, Adjustment of the mA and/or kV according to patient size, or Use of iterative reconstruction technique. COMPARISON: There are no similar studies submitted for comparison. FINDINGS: There is an acute intracerebral hemorrhage measuring to 2.9 cm x 1.6 cm x 4.1 cm (estimated volume of 10 cc) extending from the right parietal jacques radiata, along the lateral aspect of the right thalamus and posterior aspect of the right lentiform nucleus and extending inferiorly into the right superomedial temporal lobe. A small amount of hemorrhage and surrounding mild vasogenic edema extends into the posterior limb of the right internal capsule. The hemorrhage follows the course of the posterior body, atrium, and temporal horn of the right lateral ventricle, but there is no definite intraventricular extension of hemorrhage. There is associated mild mass effect upon the lateral aspect of the right thalamus, but no midline shift. There are postsurgical changes of left frontal parietal temporal craniotomy/craniectomy. A small right frontal christopher hole is also noted. There is extensive encephalomalacia and gliosis in the left frontal lobe, left parietal lobe, left lateral occipital lobe, left temporal lobe, left insula, left thalamus, and left basal ganglia. There is associated ex vacuo dilatation of the left lateral ventricle. Encephalomalacia and gliosis is also seen in the right frontal lobe with associated mild ex vacuo dilatation of the frontal horn of the right lateral ventricle. The cerebral perrea-white matter differentiation otherwise appears preserved. The basilar cisterns are preserved. There is mild diffuse cerebellar volume loss. Several bilateral chronic appearing cerebellar infarcts are noted. There is intracranial calcific atherosclerotic disease involving the internal carotid arteries and vertebral arteries bilaterally. The partially imaged orbits are unremarkable. The visualized paranasal sinuses and mastoid air cells are well-aerated. No destructive osseous lesion is detected. IMPRESSION: 1. Right parietal temporal acute intracerebral hemorrhage measuring 2.9 cm x of 1.6 cm x 4.1 cm (estimated volume of 10 cc). The hemorrhage follows the course of the posterior body, atrium, and temporal horn of the right lateral ventricle, but there is no definite intraventricular extension of hemorrhage. There is asso ciated mild mass effect upon the lateral aspect of the right thalamus and surrounding mild vasogenic edema, but no midline shift. 2. Postsurgical changes of left frontal parietal temporal craniotomy/craniectomy and small right frontal christopher hole. 3. Extensive encephalomalacia in the left frontal lobe, left parietal lobe, left lateral occipital lobe, left temporal lobe, left insula, left thalamus, and left basal ganglia with associated ex vacuo dilatation of the left lateral ventricle. 4. Encephalomalacia in the right frontal lobe with associated mild ex vacuo dilatation of the frontal horn of the right lateral ventricle. 5. Several bilateral chronic-appearing cerebellar infarcts. 6. Intracranial calcific atherosclerotic disease. Critical results call report was made to the patient's ICU nurse (TRIPP Becerra) at 16:40 10/02/2018. RPTAT: HRC Physician Kenney Date Time Electronically viewed and signed by Physician Kenney on 10/02/2018 16:51 DALLAS BUSTAMANTE Oct 02, 2018 18:13
--- NOTE | 2018-10-02 19:42 | RADRPT ---
Echocardiogram Report Patient Name: BISHOP CONNORS Gender: Male Date: 1950 Study Date: 02-Oct-2018 [place] Man: Lucero Velasco RDCS Location: 105 Ref. Physician: CANDELARIA ARROYO Quality: Adequate Procedures: Transthoracic echocardiogram with complete 2D, M-Mode, and doppler examination. Indications: Elevated trop. 2D/M Mode Doppler Measurement Value Normal Ranges Measurement Value Normal Ranges LVIDd 2D 3.8 3.5 - 5.6 cm AV Peak Angelo 1.3 m/sec LVIDs 2D 2.7 2.1 - 4.1 cm AV Peak PG 6.0 mmHg FS 2D 28.5 % LVOT Peak Angelo 0.9 m/sec LVPWd 2D 1.2 0.6 - 1.1 cm LVOT Peak PG 4.0 mmHg IVSd 2D 1.3 0.6 - 1.1 cm TR Peak Angelo 3.0 m/sec IVS/LVPW 2D 1.1 TR Peak PG 35.0 mmHg AoR Diam 2D 3.0 2.0 - 3.7 cm RVSP 43.0 mmHg LA/Ao 2D 1 0 - 1 RA Pressure 8.0 EDV 2D 52.7 cm3 ESV 2D 19.2 cm3 LA Dimen 2D 3.6 2.3 - 4.0 cm Findings Left Ventricle: Overall, low normal left ventricular systolic function. Not all segments visualized. Normal left ventricular cavity size. Mild concentric left ventricular hypertrophy. Ejection fraction is visually estimated at 50 %. These segments of the LV are akinetic apical cap. Right Ventricle: Normal right ventricular size. Normal right ventricular systolic function. Left Atrium: The left atrium is normal in size. Right Atrium: The right atrium is normal in size. Mitral Valve: Normal appearance and function of the mitral valve with trace physiologic regurgitation. Aortic Valve: No significant aortic stenosis or insufficiency. Aortic cusps appear mildly calcified. Tricuspid Valve: Normal appearance of the tricuspid valve. Estimated peak PA systolic pressure 43 mmHg. There is mild tricuspid regurgitation. Pulmonic Valve: Normal pulmonic valve appearance. Pericardium: Normal pericardium with no significant pericardial effusion. Aorta: Normal aortic root. IVC: Dilated IVC without respiratory collapse consistent with elevated right atrial pressure. Conclusions Overall, low normal left ventricular systolic function. Not all segments visualized. Normal left ventricular cavity size. Mild concentric left ventricular hypertrophy. Ejection fraction is visually estimated at 50 %. These segments of the LV are akinetic apical cap. Normal right ventricular size. Normal right ventricular systolic function. The left atrium is normal in size. The right atrium is normal in size. Estimated peak PA systolic pressure 43 mmHg. There is mild tricuspid regurgitation. No significant valvular stenosis or regurgitation seen of remaining visualized valves. Normal pericardium with no significant pericardial effusion. Electronically Signed By: Ced Barboza 02-Oct-2018 19:41:27 -0800 Patient Name: BISHOP CONNORS Study Date: 02-Oct-2018 [id number]
--- NOTE | 2018-10-02 20:46 | CONS ---
Date/Time of Note Date/Time of Note DATE: 10/02/18 TIME: 20:42 Assessment/Plan Assessment/Plan Assessment/Plan 68 year old with resp and renal failure, septic shock, hypotension, now with evidence of clinically non-consequential right sided intracerebral hemorrhage. This is a strong relative indication for anticoagulation; however no intervention is contemplated for this ICH. Recommend fu imaging (MRI probably best). Result Diagram: 10/02/18 0435 10/02/18 1019 Results 24hrs Laboratory Tests Test 10/02/18 00:09 10/02/18 01:15 10/02/18 01:30 10/02/18 01:34 POC Venous 7.4 *H Lactate Urine Total 89.0 H Protein Blood Gas Blood arterial Specimen Source Arterial Blood 10/02/2018 1:50:4 Date Drawn 6 AM Arterial Blood pH 7.289 *L (Temp corrected) Arterial Blood 33.1 L pCO2 (Temp correct) Arterial Blood 100.7 H pO2 (Temp corrected) Arterial Blood 15.5 L HCO3 Arterial Blood -9.8 L Base Excess Arterial Blood 96.7 Oxygen Saturation Justice Test ACCEPTAB Arterial Blood Right Radial Gas Puncture Site Arterial 0 Blood Carboxyhemo globin Arterial Blood 0.4 Methemoglobin Blood Gas A-a O2 218.6 H Differential Oxyhemoglobin 96.3 Percent Blood Gas 37.0 Temperature Blood Gas 16.0 Respiration Rate Blood Gas Actual 20 Respiration Rate Blood Gas VENT - AC Modality FiO2 50.0 Blood Gas Tidal 500.0 Volume Blood Gas Low 5.0 PEEP Setting Blood Gas D MANA BAILON Critical Value Read Back Blood Gas UP Notified Whom Blood Gas 10/02/2018 2:10:4 Notified Time 7 AM Urine Ketones NEGATIVE Urine Random 93.65 Creatinine Urine Random 25 L Sodium Test 10/02/18 02:40 10/02/18 04:12 10/02/18 04:35 10/02/18 05:53 POC Venous 4.0 *H Lactate Bedside Glucose 558 *H > 595 *H White Blood Count 20.3 H Red Blood Count 4.62 #L Hemoglobin 13.9 #L Hematocrit 46.1 # Mean Corpuscular 99.8 Volume Mean Corpuscular 30.1 Hemoglobin Mean Corpuscular 30.2 L Hemoglobin Concen t Red Cell 12.1 Distribution Width Platelet Count 255 # Mean Platelet 12.5 H Volume Immature 0.400 Granulocytes % Neutrophils % Segmented 50 Neutrophils % (Manual) Band Neutrophils 27 H % (Manual) Lymphocytes % Lymphocytes % 12 L (Manual) Monocytes % Monocytes % 8 (Manual) Eosinophils % Basophils % Metamyelocytes % 2 H (manual) Myelocytes % 1 H (Manual) Nucleated Red 0.0 Blood Cells % Immature 0.090 H Granulocytes # Neutrophils # Neutrophils # 11.2 H (Manual) Band Neutrophils 5.4 H # Lymphocytes 2.4 (Manual) Lymphocytes # Monocytes # Monocytes # 1.6 H (Manual) Eosinophils # Basophils # Metamyelocytes # 0.4 H Myelocytes # 0.2 H Nucleated Red Blood Cells # Platelet Estimate NORMAL Poikilocytosis 1+ Sodium Level 154 H Potassium Level 5.2 H Chloride Level 125 H Carbon Dioxide 18 L Level Anion Gap 11 # Blood Urea 102 H Nitrogen Creatinine 4.43 #H Est Glomerular 13 L Filtrat Rate mL/min Glucose Level 654 *H Lactic Acid Level 3.8 *H Calcium Level 7.6 L Troponin I 0.476 *H Test 10/02/18 07:05 10/02/18 07:50 10/02/18 09:06 10/02/18 10:00 Bedside Glucose 563 *H 547 *H 517 *H 481 *H Test 10/02/18 10:19 10/02/18 10:58 10/02/18 10:59 10/02/18 12:06 Sodium Level 163 *H Potassium Level 4.1 Chloride Level 130 H Carbon Dioxide 17 L Level Anion Gap 16 H Blood Urea 97 H Nitrogen Creatinine 4.05 H Est Glomerular 15 L Filtrat Rate mL/min Glucose Level 542 *H Calcium Level 8.0 L Magnesium Level 2.9 H Creatine Kinase 2227 H Creatine Kinase 0.2 Index Creatinine Kinase 4.77 H MB (Mass) Troponin I 1.130 *H Bedside Glucose 412 *H 332 H Hemoglobin A1c 9.8 H Lactic Acid Level 4.6 *H Test 10/02/18 12:59 10/02/18 14:15 10/02/18 15:02 10/02/18 15:58 Bedside Glucose 283 H 246 H 214 178 Test 10/02/18 16:07 10/02/18 17:27 10/02/18 18:06 10/02/18 18:59 Creatine Kinase 2107 H Creatine Kinase 0.2 Index Creatinine Kinase 4.93 H MB (Mass) Troponin I 1.310 *H Bedside Glucose 124 110 87 Test 10/02/18 20:06 Bedside Glucose 91 Consultation Date/Type/Reason Admit Date/Time Oct 02, 2018 at 01:47 Date of Consultation: Oct 02, 2018 Type of Consult neurosurgery Reason for Consultation right intracerebral hemorrhage Hx of Present Illness Patient is a 68 [facility] old [facility] unable to relate details of his hx; hx per chart review and from discussion with PMD. Patient has hx of ?aneurysm, s/p left sided craniotomy with extensive left hemispheric encephalomalacia, admitted with sepsis, multiorgan system faillure, and altered MS. He is non verbal at baseline. CT shows a subacute right posterior thalamic hemorrhage. No mass effect or midline shift. Past Medical History Medical History: high cholesterol, hypertension, other (H/o CVA< H/o Chornic encephalopathy) Medications Current Medications Norepinephrine 250 ml @ 7.5 mls/hr ONCE STAT IV Last administered on 10/02/18at 00:39; Admin Dose 7.5 MLS/HR; Start 10/02/18 at 00:04; Stop 10/03/18 at 09:23 Vancomycin HCl (Vanco Iv Per Pharmacy) VANCOMYCIN PER PHARMACY PER PROTOCOL XX ; Start 10/02/18 at 02:30 Acetaminophen (Tylenol Tab) 650 mg Q4H PRN PO pain/fever; Start 10/02/18 at 02:30 Ondansetron HCl (Zofran Inj) 4 mg Q4H PRN IV nausea; Start 10/02/18 at 02:30 Morphine Sulfate (morphine) 2 mg Q2 PRN IV pain; Start 10/02/18 at 02:30 Pantoprazole (Protonix Iv) 40 mg DAILY@0600 IV Last administered on 10/02/18at 05:52; Admin Dose 40 MG; Start 10/02/18 at 06:00 Diagnostic Test (Pha) (Accu-Chek) 1 ea Q1H XX Last administered on 10/02/18at 20:07; Admin Dose 1 EA; Start 10/02/18 at 03:00 Insulin Human Regular 100 unit/ Sodium Chloride 100 ml @ 0 mls/hr PER PROTOCOL IV Last administered on 10/02/18at 18:10; Admin Dose 3 MLS/HR; Start 10/02/18 at 03:00 Miscellaneous Information (* Miscellaneous Pharmacy Order) Treatment of Hypoglycemia: 1.BG 51... Per protocol XX ; Start 10/02/18 at 03:00 Dextrose (D50w Syringe) 25 ml Q15M PRN IV DECREASED GLUCOSE; Start 10/02/18 at 03:00 Dextrose (D50w Syringe) 50 ml Q15M PRN IV DECREASED GLUCOSE; Start 10/02/18 at 03:00 Levetiracetam 100 ml @ 400 mls/hr Q12 IVPB Last administered on 10/02/18at 04:13; Admin Dose 400 MLS/HR; Start 10/02/18 at 04:00 Piperacillin Sod/ Tazobactam Sod 50 ml @ 100 mls/hr Q8 IVPB Last administered on 10/02/18at 13:10; Admin Dose 100 MLS/HR; Start 10/02/18 at 03:30 Sodium Bicarbonate 50 meq/Sodium Chloride 1,050 ml @ 100 mls/hr [id number] IV L ast administered on 10/02/18at 15:47; Admin Dose 100 MLS/HR; Start 10/02/18 at 15:00 Allergies: Coded Allergies: No Known Allergy (Unverified , 10/02/18) Past Surgical History Past Surgical Hx: other (H/o surgery for brain aneurysm ) Social History Alcohol Use: none Smoking Status: Unknown if ever smoked Drug Use: none Exam/Review of Systems Vital Signs Vitals Vital Signs Date Temp Pulse Resp B/P (MAP) Pulse Ox O2 O2 Flow FiO2 Time Delivery Rate 10/02/18 101 18 111/87 100 Mechanical 19:00 (95) Ventilator 10/02/18 45 16:55 10/02/18 99.1 16:00 10/01/18 15.0 23:52 Intake and Output 10/01/18 10/01/18 10/02/18 1515:00 23:00 07:00 IntakeIntake Total 3798.25 ml OutputOutput Total 405 ml BalanceBalance 3393.25 ml Exam intubated, obtunded. Does not follow commands. Right side flexion contracture. [id number] Weakly opens eyes to pain Downward gaze Pupils equal gaze conjugate Medications Medications Current Medications Norepinephrine 250 ml @ 7.5 mls/hr ONCE STAT IV Last administered on 10/02/18at 00:39; Admin Dose 7.5 MLS/HR; Start 10/02/18 at 00:04; Stop 10/03/18 at 09:23 Vancomycin HCl (Vanco Iv Per Pharmacy) VANCOMYCIN PER PHARMACY PER PROTOCOL XX ; Start 10/02/18 at 02:30 Acetaminophen (Tylenol Tab) 650 mg Q4H PRN PO pain/fever; Start 10/02/18 at 02:30 Ondansetron HCl (Zofran Inj) 4 mg Q4H PRN IV nausea; Start 10/02/18 at 02:30 Morphine Sulfate (morphine) 2 mg Q2 PRN IV pain; Start 10/02/18 at 02:30 Pantoprazole (Protonix Iv) 40 mg DAILY@0600 IV Last administered on 10/02/18at 05:52; Admin Dose 40 MG; Start 10/02/18 at 06:00 Diagnostic Test (Pha) (Accu-Chek) 1 ea Q1H XX Last administered on 10/02/18at 20:07; Admin Dose 1 EA; Start 10/02/18 at 03:00 Insulin Human Regular 100 unit/ Sodium Chloride 100 ml @ 0 mls/hr PER PROTOCOL I V Last administered on 10/02/18at 18:10; Admin Dose 3 MLS/HR; Start 10/02/18 at 03:00 Miscellaneous Information (* Miscellaneous Pharmacy Order) Treatment of Hypoglycemia: 1.BG 51... Per protocol XX ; Start 10/02/18 at 03:00 Dextrose (D50w Syringe) 25 ml Q15M PRN IV DECREASED GLUCOSE; Start 10/02/18 at 03:00 Dextrose (D50w Syringe) 50 ml Q15M PRN IV DECREASED GLUCOSE; Start 10/02/18 at 03:00 Levetiracetam 100 ml @ 400 mls/hr Q12 IVPB Last administered on 10/02/18at 04:13; Admin Dose 400 MLS/HR; Start 10/02/18 at 04:00 Piperacillin Sod/ Tazobactam Sod 50 ml @ 100 mls/hr Q8 IVPB Last administered on 10/02/18at 13:10; Admin Dose 100 MLS/HR; Start 10/02/18 at 03:30 Sodium Bicarbonate 50 meq/Sodium Chloride 1,050 ml @ 100 mls/hr [id number] IV Last administered on 10/02/18at 15:47; Admin Dose 100 MLS/HR; Start 10/02/18 at 15:00 CHATA SLATER MD Oct 02, 2018 20:46
[2018-10-03] VITALS (53 sets, daily range): BP systolic 94–152; BP diastolic 63–99; PULSE 84–121; RESP 13–29
[2018-10-03] MEDS: ACCU-CHEK XX SCH ×24 (01:06→22:58)
[2018-10-03] MEDS: SODIUM BICARBONATE (IV ADD) 50 MEQ in SOD CHLORIDE 0.45% 1,000 ML IV SCH ×2 (02:20→14:44)
[2018-10-03] MEDS: morphine SULFATE/PF (2 MG/2 ML) SYG IV PRN ×3 (02:59→22:57)
[2018-10-03] MEDS: PIPER-TAZO 2.25 GM (PMX) 50 ML IVPB SCH ×3 (05:02→20:38)
[2018-10-03] MEDS: PANTOPRAZOLE 40 MG INJ IV SCH (05:02)
--- NOTE | 2018-10-03 09:17 | CONS ---
Date/Time of Note Date/Time of Note DATE: 10/03/18 TIME: 09:17 Assessment/Plan Assessment/Plan Assessment/Plan 1. acute kidney injury on CKD unknown baseline Cr due to ATN from septic shock + severe prerenal azotemia from DKA 2. Acute hyperkalemia due to RIVAS 3. Acute hypernatremia due to severe dehydration from Hyperglycemia hyperosmolar State 4. Acute respiratory failure possible due to Aspiration PNA + septic shock, intubated on ventilator 5. Septic shock 2/2 Aspiration PNA 6. Intracranial bleeding 7. H/o atrial fibrillation on Eliis unitl admission 8. H/o HTN 9. Acute on chronic encephalopathy 10. Elevated Troponin 11. Dysphagia secondary to CVA s/p G tube placement 12. Recent acute CVA and status post aneurysm and hematoma evacuation in 2016, patient on Keppra for seizure prophylaxis. Again baseline significant encephalopathy and mostly bedbound for the past 2 years with recent worsening few weeks ago. Plan: BUN/Cr 71/2.63 Na improved to 157, HCo3 23- Continue IVF 1/2 NS with 1 ampoule of sodium bicarbonate to run at 80cc/hr Renal US has been done which is unremarkable except left kidney cyst ventilator care as per pulmonary Urine output 3.1 liter in last 24 hr IV abx to cover him for HCAP- Renally dose all abx and monitor electrolytes Neurosurgery has been consulted for ICH< not a surgical candidate due to Hemodyanic instabilicy and metablic derangement Not a Hemodialysis candidate due to pt age, comorbidities will follow up Result Diagram: 10/03/18 0330 10/03/18 0330 Results 24hrs Laboratory Tests Test 10/02/18 10:00 10/02/18 10:19 10/02/18 10:58 10/02/18 10:59 Bedside Glucose 481 *H 412 *H Sodium Level 163 *H Potassium Level 4.1 Chloride Level 130 H Carbon Dioxide 17 L Level Anion Gap 16 H Blood Urea 97 H Nitrogen Creatinine 4.05 H Est Glomerular 15 L Filtrat Rate mL/min Glucose Level 542 *H Calcium Level 8.0 L Magnesium Level 2.9 H Creatine Kinase 2227 H Creatine Kinase 0.2 Index Creatinine Kinase 4.77 H MB (Mass) Troponin I 1.130 *H Hemoglobin A1c 9.8 H Lactic Acid Level 4.6 *H Test 10/02/18 12:06 10/02/18 12:59 10/02/18 14:15 10/02/18 15:02 Bedside Glucose 332 H 283 H 246 H 214 Test 10/02/18 15:58 10/02/18 16:07 10/02/18 17:27 10/02/18 18:06 Bedside Glucose 178 124 110 Creatine Kinase 2107 H Creatine Kinase 0.2 Index Creatinine Kinase 4.93 H MB (Mass) Troponin I 1.310 *H Test 10/02/18 18:59 10/02/18 20:06 10/02/18 21:09 10/02/18 22:02 Bedside Glucose 87 91 106 103 Test 10/02/18 22:21 10/02/18 22:57 10/03/18 01:06 10/03/18 02:16 Creatine Kinase 1390 H Creatine Kinase 0.3 Index Creatinine Kinase 4.40 H MB (Mass) Troponin I 0.955 *H Bedside Glucose 117 153 160 Test 10/03/18 03:04 10/03/18 03:30 10/03/18 05:05 10/03/18 05:21 Bedside Glucose 157 134 White Blood Count 15.4 #H Red Blood Count 4.00 L Hemoglobin 11.9 L Hematocrit 39.0 L Mean Corpuscular 97.5 Volume Mean Corpuscular 29.8 Hemoglobin Mean Corpuscular 30.5 L Hemoglobin Concen t Red Cell 12.0 Distribution Width Platelet Count 169 Mean Platelet 12.6 H Volume Immature 0.200 Granulocytes % Neutrophils % Segmented 72 Neutrophils % (Manual) Band Neutrophils 19 H % (Manual) Lymphocytes % Lymphocytes % 6 L (Manual) Monocytes % Monocytes % 3 (Manual) Eosinophils % Basophils % Nucleated Red 0.0 Blood Cells % Immature 0.030 Granulocytes # Neutrophils # Neutrophils # 11.5 H (Manual) Band Neutrophils 2.9 H # Lymphocytes 0.9 (Manual) Lymphocytes # Monocytes # Monocytes # 0.4 (Manual) Eosinophils # Basophils # Nucleated Red Blood Cells # Platelet Estimate NORMAL Polychromasia 1+ Ovalocytes 1+ Prothrombin Time 16.1 H Prothrombin Time 1.3 Ratio INR International 1.28 Normalized Ratio Activated 36.5 H Partial Thrombopl ast Time Thrombin Time 18.3 Sodium Level 157 H Potassium Level 3.8 Chloride Level 127 H Carbon Dioxide 23 Level Anion Gap 7 # Blood Urea 71 H Nitrogen Creatinine 2.63 #H Est Glomerular 24 L Filtrat Rate mL/min Glucose Level 164 # Lactic Acid Level 1.7 Calcium Level 8.2 L Phosphorus Level 3.1 Magnesium Level 2.3 Total Bilirubin 0.2 Direct Bilirubin 0.00 Indirect 0.2 Bilirubin Aspartate Amino 600 H Transf (AST/SGOT) Alanine 524 H Aminotransferase (ALT/SGPT) Alkaline 96 Phosphatase Total Protein 6.5 Albumin 3.2 L Globulin 3.30 H Albumin/Globulin 0.96 Ratio Lab Scanned BLOOD TRANSFUSIO Report N Test 10/03/18 06:20 10/03/18 08:12 Bedside Glucose 136 130 Consultation Date/Type/Reason Admit Date/Time Oct 02, 2018 at 01:47 Initial Consult Date 10/02/18 Type of Consult NEPHROLOGY Requesting Provider: CANDELARIA ARROYO MD 24 HR Interval Summary Free Text/Dictation pt remains unresponsive on ventilator, Pulmonary has been following, BP labile, Exam/Review of Systems Vital Signs Vitals Vital Signs Date Temp Pulse Resp B/P (MAP) Pulse Ox O2 O2 Flow FiO2 Time Delivery Rate 10/03/18 99.1 119 16 126/94 99 Mechanical 08:00 (105) Ventilator 10/03/18 30 08:00 10/01/18 15.0 23:52 Intake and Output 10/02/18 10/02/18 10/03/18 1515:00 23:00 07:00 IntakeIntake Total 1911.00 ml 1196.00 ml 900 ml OutputOutput Total 790 ml 1225 ml 1215 ml BalanceBalance 1121.00 ml -29.00 ml -315 ml Exam Constitutional: non-verbal, distress (moderate distress, ) ENMT: intubated (on ventilator) Neck: supple Respiratory: congested cough, crackles/rales, diminished breath sounds Cardiovascular: edema, irregular rhythm Gastrointestinal: soft, non-tender, other (G tube in place ) Musculoskeletal: swelling Neurological: other (on Ventilator, unresponsive ) Medications Medications Current Medications Norepinephrine 250 ml @ 7.5 mls/hr ONCE STAT IV Last administered on 10/02/18at 00:39; Admin Dose 7.5 MLS/HR; Start 10/02/18 at 00:04; Stop 10/03/18 at 09:23 Vancomycin HCl (Vanco Iv Per Pharmacy) VANCOMYCIN PER PHARMACY PER PROTOCOL XX ; Start 10/02/18 at 02:30 Acetaminophen (Tylenol Tab) 650 mg Q4H PRN PO pain/fever; Start 10/02/18 at 02:30 Ondansetron HCl (Zofran Inj) 4 mg Q4H PRN IV nausea; Start 10/02/18 at 02:30 Pantoprazole (Protonix Iv) 40 mg DAILY@0600 IV Last administered on 10/03/18at 05:02; Admin Dose 40 MG; Start 10/02/18 at 06:00 Diagnostic Test (Pha) (Accu-Chek) 1 ea Q1H XX Last administered on 10/03/18at 05:58; Admin Dose 1 EA; Start 10/02/18 at 03:00 Insulin Human Regular 100 unit/ Sodium Chloride 100 ml @ 0 mls/hr PER PROTOCOL IV Last administered on 10/02/18at 18:10; Admin Dose 3 MLS/HR; Start 10/02/18 at 03:00 Miscellaneous Information (* Miscellaneous Pharmacy Order) Treatment of Hypoglycemia: 1.BG 51... Per protocol XX ; Start 10/02/18 at 03:00 Dextrose (D50w Syringe) 25 ml Q15M PRN IV DECREASED GLUCOSE; Start 10/02/18 at 03:00 Dextrose (D50w Syringe) 50 ml Q15M PRN IV DECREASED GLUCOSE; Start 10/02/18 at 03:00 Levetiracetam 100 ml @ 400 mls/hr Q12 IVPB Last administered on 10/02/18at 21:55; Admin Dose 400 MLS/HR; Start 10/02/18 at 04:00 Piperacillin Sod/ Tazobactam Sod 50 ml @ 100 mls/hr Q8 IVPB Last administered on 10/03/18at 05:02; Admin Dose 100 MLS/HR; Start 10/02/18 at 03:30 Sodium Bicarbonate 50 meq/Sodium Chloride 1,050 ml @ 100 mls/hr [id number] IV Last administered on 10/03/18at 02:20; Admin Dose 100 MLS/HR; Start 10/02/18 at 15:00 Morphine Sulfate (morphine SULFATE (PF)) 2 mg Q2 PRN IV pain Last administered on 10/03/18at 05:03; Admin Dose 2 MG; Start 10/03/18 at 02:48 KAMILA FAGAN MD Oct 03, 2018 09:17
[2018-10-03] MEDS: BALSAM PERU/CASTOR OIL 60 GM TUBE TOP SCH ×2 (09:23→20:38)
[2018-10-03] MEDS: LEVETIRACETAM 1000 MG (PMX) 100 ML IVPB SCH ×2 (09:26→20:37)
--- NOTE | 2018-10-03 09:30 | CONS ---
Date/Time of Note Date/Time of Note DATE: 10/03/18 TIME: 09:27 Assessment/Plan Assessment/Plan Assessment/Plan Chest x-ray was reviewed from today which is essentially unremarkable. Ventilator setting; AC of 16, tidal volume 500, PEEP of 5, 30% FiO2. Patient is currently on insulin drip 1.5 units/h. Assessment and recommendations; 1. Patient with history of severe chronic encephalopathy status post craniotomy admitted for altered mental status with acute intracerebral bleed now. 2. Acute respiratory failure requiring invasive mechanical ventilation. 3. Sepsis of unknown source. However there is significant improvement in leukocytosis. Patient currently on appropriate empiric antimicrobial regimen. Chest x-ray from today is totally clear not indicative of any infective process. 4. Acute renal failure due to marked intravascular volume depletion with improving renal function as well as interval correction of metabolic acidosis. 5. Chronic atrial fibrillation. 6. Improving hypernatremia. Patient getting appropriate free water replacement. 7. Diabetes, patient maintained on insulin drip. 8. Stable seizure disorder. Continue current supportive care. Prognosis is extremely poor. Patient's f amily possibly may opt for comfort care measures. 35 minutes of critical care time was spent evaluating the patient. Result Diagram: 10/03/18 0330 10/03/18 0330 Results 24hrs Laboratory Tests Test 10/02/18 10:00 10/02/18 10:19 10/02/18 10:58 10/02/18 10:59 Bedside Glucose 481 *H 412 *H Sodium Level 163 *H Potassium Level 4.1 Chloride Level 130 H Carbon Dioxide 17 L Level Anion Gap 16 H Blood Urea 97 H Nitrogen Creatinine 4.05 H Est Glomerular 15 L Filtrat Rate mL/min Glucose Level 542 *H Calcium Level 8.0 L Magnesium Level 2.9 H Creatine Kinase 2227 H Creatine Kinase 0.2 Index Creatinine Kinase 4.77 H MB (Mass) Troponin I 1.130 *H Hemoglobin A1c 9.8 H Lactic Acid Level 4.6 *H Test 10/02/18 12:06 10/02/18 12:59 10/02/18 14:15 10/02/18 15:02 Bedside Glucose 332 H 283 H 246 H 214 Test 10/02/18 15:58 10/02/18 16:07 10/02/18 17:27 10/02/18 18:06 Bedside Glucose 178 124 110 Creatine Kinase 2107 H Creatine Kinase 0.2 Index Creatinine Kinase 4.93 H MB (Mass) Troponin I 1.310 *H Test 10/02/18 18:59 10/02/18 20:06 10/02/18 21:09 10/02/18 22:02 Bedside Glucose 87 91 106 103 Test 10/02/18 22:21 10/02/18 22:57 10/03/18 01:06 10/03/18 02:16 Creatine Kinase 1390 H Creatine Kinase 0.3 Index Creatinine Kinase 4.40 H MB (Mass) Troponin I 0.955 *H Bedside Glucose 117 153 160 Test 10/03/18 03:04 10/03/18 03:30 10/03/18 05:05 10/03/18 05:21 Bedside Glucose 157 134 White Blood Count 15.4 #H Red Blood Count 4.00 L Hemoglobin 11.9 L Hematocrit 39.0 L Mean Corpuscular 97.5 Volume Mean Corpuscular 29.8 Hemoglobin Mean Corpuscular 30.5 L Hemoglobin Concen t Red Cell 12.0 Distribution Width Platelet Count 169 Mean Platelet 12.6 H Volume Immature 0.200 Granulocytes % Neutrophils % Segmented 72 Neutrophils % (Manual) Band Neutrophils 19 H % (Manual) Lymphocytes % Lymphocytes % 6 L (Manual) Monocytes % Monocytes % 3 (Manual) Eosinophils % Basophils % Nucleated Red 0.0 Blood Cells % Immature 0.030 Granulocytes # Neutrophils # Neutrophils # 11.5 H (Manual) Band Neutrophils 2.9 H # Lymphocytes 0.9 (Manual) Lymphocytes # Monocytes # Monocytes # 0.4 (Manual) Eosinophils # Basophils # Nucleated Red Blood Cells # Platelet Estimate NORMAL Polychromasia 1+ Ovalocytes 1+ Prothrombin Time 16.1 H Prothrombin Time 1.3 Ratio INR International 1.28 Normalized Ratio Activated 36.5 H Partial Thrombopl ast Time Thrombin Time 18.3 Sodium Level 157 H Potassium Level 3.8 Chloride Level 127 H Carbon Dioxide 23 Level Anion Gap 7 # Blood Urea 71 H Nitrogen Creatinine 2.63 #H Est Glomerular 24 L Filtrat Rate mL/min Glucose Level 164 # Lactic Acid Level 1.7 Calcium Level 8.2 L Phosphorus Level 3.1 Magnesium Level 2.3 Total Bilirubin 0.2 Direct Bilirubin 0.00 Indirect 0.2 Bilirubin Aspartate Amino 600 H Transf (AST/SGOT) Alanine 524 H Aminotransferase (ALT/SGPT) Alkaline 96 Phosphatase Total Protein 6.5 Albumin 3.2 L Globulin 3.30 H Albumin/Globulin 0.96 Ratio Lab Scanned BLOOD TRANSFUSIO Report N Test 10/03/18 06:20 10/03/18 08:12 Bedside Glucose 136 130 Consultation Date/Type/Reason Admit Date/Time Oct 02, 2018 at 01:47 Initial Consult Date 10/02/18 Type of Consult Pulmonary/critical care Pulmonary consult requested for evaluation of respiratory failure and sepsis. History of presenting illness; patient is a 68-year-old male who was admitted to the hospital because of altered mental status with severe lethargic. Patient was diagnosed with DKA with severe hyperglycemia and had to be intubated because of respiratory failure. By the time I saw him, patient is orally intubated, on ventilator and unresponsive. Patient however did not appear to be in any distress. Past medical history; 1. History of CVA with apparent encephalopathy. 2. History of dysphagia, status post PEG tube placement. 3. Diabetes. 4. History of seizure disorder. 5. Baseline renal status is unknown. 6. Chronic atrial fibrillation. Medications; reviewed. Patient is currently on insulin drip at 16 units/h as well as Levophed at 6 mics per minute. Other medications were reviewed. Allergies; none. Occupational history, social history, family history not available. Review of system; unable to be obtained. General exam; elderly male, orally intubated, unresponsive, currently in no distress. Requesting Provider: CANDELARIA ARROYO MD 24 HR Interval Summary Free Text/Dictation Patient's condition remains critical. Patient underwent CT imaging of the head which is showing acute intracerebral bleed. General exam; elderly male, orally intubated, unresponsive, currently in no distress. Exam/Review of Systems Vital Signs Vitals Vital Signs Date Temp Pulse Resp B/P (MAP) Pulse Ox O2 O2 Flow FiO2 Time Delivery Rate 10/03/18 104 16 122/82 100 Mechanical 09:00 (95) Ventilator 10/03/18 30 08:05 10/03/18 99.1 08:00 10/01/18 15.0 23:52 Intake and Output 10/02/18 10/02/18 10/03/18 1515:00 23:00 07:00 IntakeIntake Total 1911.00 ml 1196.00 ml 900 ml OutputOutput Total 790 ml 1225 ml 1215 ml BalanceBalance 1121.00 ml -29.00 ml -315 ml Exam H EENT exam; supple neck, no JVD. No lymphadenopathy. Midline trachea. No thyromegaly. There is a left parietal skull depression. Patient has fair dentition. Orally intubated. No neck masses. Pupils are small bilaterally. Chest exam; clear to auscultation. S1-S2 audible, no murmurs. Irregular rhythm. Abdomen exam; soft, no organomegaly. G-tube in place. Bowel sounds are audible. Extremity exam; no peripheral edema. Pulses 1+. [employer] exam; patient remains unresponsive. Medications Medications Current Medications Vancomycin HCl (Vanco Iv Per Pharmacy) VANCOMYCIN PER PHARMACY PER PROTOCOL XX ; Start 10/02/18 at 02:30 Acetaminophen (Tylenol Tab) 650 mg Q4H PRN PO pain/fever; Start 10/02/18 at 02:30 Ondansetron HCl (Zofran Inj) 4 mg Q4H PRN IV nausea; Start 10/02/18 at 02:30 Pantoprazole (Protonix Iv) 40 mg DAILY@0600 IV Last administered on 10/03/18at 05:02; Admin Dose 40 MG; Start 10/02/18 at 06:00 Diagnostic Test (Pha) (Accu-Chek) 1 ea Q1H XX Last administered on 10/03/18at 05:58; Admin Dose 1 EA; Start 10/02/18 at 03:00 Insulin Human Regular 100 unit/ Sodium Chloride 100 ml @ 0 mls/hr PER PROTOCOL IV Last administered on 10/02/18at 18:10; Admin Dose 3 MLS/HR; Start 10/02/18 at 03:00 Miscellaneous Information (* Miscellaneous Pharmacy Order) Treatment of Hypoglycemia: 1.BG 51... Per protocol XX ; Start 10/02/18 at 03:00 Dextrose (D50w Syringe) 25 ml Q15M PRN IV DECREASED GLUCOSE; Start 10/02/18 at 03:00 Dextrose (D50w Syringe) 50 ml Q15M PRN IV DECREASED GLUCOSE; Start 10/02/18 at 03:00 Levetiracetam 100 ml @ 400 mls/hr Q12 IVPB Last administered on 10/02/18at 21:55; Admin Dose 400 MLS/HR; Start 10/02/18 at 04:00 Piperacillin Sod/ Tazobactam Sod 50 ml @ 100 mls/hr Q8 IVPB Last administered on 10/03/18at 05:02; Admin Dose 100 MLS/HR; Start 10/02/18 at 03:30 Sodium Bicarbonate 50 meq/Sodium Chloride 1,050 ml @ 100 mls/hr [id number] IV Last administered on 10/03/18at 02:20; Admin Dose 100 MLS/HR; Start 10/02/18 at 15:00 Morphine Sulfate (morphine SULFATE (PF)) 2 mg Q2 PRN IV pain Last administered on 10/03/18at 05:03; Admin Dose 2 MG; Start 10/03/18 at 02:48 KAYE CRUZ Oct 03, 2018 09:30
--- NOTE | 2018-10-03 09:42 | PN ---
Date/Time of Note Date/Time of Note DATE: 10/03/18 TIME: 09:22 Assessment/Plan VTE Prophylaxis Risk score (from Ns)>0 risk: 9 SCD applied (from Ns): Yes Pharmacological prophylaxis: NA/contraindicated Pharm contraindication: bleeding Lines/Catheters IV Catheter Type (from Nrsg): Central Line Central line still needed: Yes (Iv fluids and abx ) Urinary Cath still in place: Yes Reason Cath still needed: other (indicate) (Acute kidney injury, intubated and obtunded.) Assessment/Plan Assessment/Plan 68-year-old male with: 1. Septic shock, source likely aspiration pneumonia, patient currently on coverage for HCAP versus aspiration pneumonia with cefepime and vancomycin. Continue IV fluids, respiratory support with mechanical ventilation, off pressors. Follow-up CBC and lactic acid, trending down as of today. Follow-up blood cultures and urine cultures. Patient full code. 2. Aspiration pneumonia, likely given that the patient is obtunded at baseline and went into respiratory failure by the time he presented in the hospital in setting of tachypnea and respiratory insufficiency. Continue vancomycin and cefepime currently. Follow-up chest x-ray stable with findings of infiltrate at bases. 3. Acute respiratory failure in setting of septic shock and probable aspiration pneumonia. Patient on mechanical ventilation. No sedation needed given the fact that he is obtunded at baseline. Pulmonary following. FiO2 30%, discussed with pulmonary, with new findings of intracranial hemorrhage and significant encephalopathy, unlikely to be able to extubate patient. Will need to again discuss with family goals of care and encourage palliative care/hospice placement with comfort measures. 4. Acute renal failure, unclear if his baseline renal insufficiency or CKD, patient definitely significantly dehydrated and hypovolemic. On IV fluids currently, appreciate nephrology recommendations. Renal function improving, blood sugar now controlled with insulin drip. Hyponatremia improving Continue insulin drip and IV fluids along with free water. Monitor urine output, electrolytes and renal function. 5. Acute intracranial hemorrhage, MRI MRA showing and changed intracranial hemorrhage compared to CAT scan done yesterday earlier. Appreciate recommendations from neurosurgery, no intervention at this time recommending readdressing goals of care. Patient is also found to have a large left MCA territory ischemic stroke which is chronic and was diagnosed back in August 2018 6. Diabetes mellitus, status post hyperosmolar hyperglycemic crisis, no blood sugar controlled, to remain on insulin drip for now until goals of care clarified. A1c 9.8. 7. Chronic atrial fibrillation, currently in atrial fibrillation with slightly better heart rate control. Given findings of acute intracranial bleeding, all anticoagulation discontinued. 8. Elevated troponin, in setting of acute renal failure, septic shock and A. fib with RVR. 2D echocardiogram ordered, given the current finding, will hold of cardiology evaluation since goals of care needs to be readdressed and will advocate for comfort measures in setting of intracranial hemorrhage. Need to avoid antiplatelets and anticoagulation for now. Troponin did trend down. 9. Encephalopathy, acute on chronic, obtunded at baseline with likely worsening mental status with findings of acute intracranial hemorrhage. Patient likely not to be extubated bowl according to pulmonary. Will reassess goals of care with family. 10. Hypertension, all medications on hold for now. 11. Dysphagia secondary to recent CVA, status post G-tube placement in August 2018. Currently getting free water, will readdress goals of care and subsequent nutritional needs depending on goals of care. Hopefully patient's family will proceed with DNR CODE STATUS and comfort measures. Prophylaxis: Protonix for GI prophylaxis, SCDs for DVT prophylaxis Disposition: Patient currently in ICU, intubated, on insulin drip. Patient with extremely poor prognosis given additional findings of intracranial bleeding with already known severe encephalopathy and underlying previous aneurysmal bleed along with a recent large left MCA CVA. Patient currently also with additional organ dysfunction including respiratory failure, renal insufficiency. Current clinical condition is poor and again prognosis is extremely poor, it is the opinion of the medical team that the patient should proceed with a DNR status and comfort measures, will meet with family today. Still full code until family meeting. Result Diagram: 10/03/18 0330 10/03/18 0330 Results 24hrs Laboratory Tests Test 10/02/18 10:00 10/02/18 10:19 10/02/18 10:58 10/02/18 10:59 Bedside Glucose 481 *H 412 *H Sodium Level 163 *H Potassium Level 4.1 Chloride Level 130 H Carbon Dioxide 17 L Level Anion Gap 16 H Blood Urea 97 H Nitrogen Creatinine 4.05 H Est Glomerular 15 L Filtrat Rate mL/min Glucose Level 542 *H Calcium Level 8.0 L Magnesium Level 2.9 H Creatine Kinase 2227 H Creatine Kinase 0.2 Index Creatinine Kinase 4.77 H MB (Mass) Troponin I 1.130 *H Hemoglobin A1c 9.8 H Lactic Acid Level 4.6 *H Test 10/02/18 12:06 10/02/18 12:59 10/02/18 14:15 10/02/18 15:02 Bedside Glucose 332 H 283 H 246 H 214 Test 10/02/18 15:58 10/02/18 16:07 10/02/18 17:27 10/02/18 18:06 Bedside Glucose 178 124 110 Creatine Kinase 2107 H Creatine Kinase 0.2 Index Creatinine Kinase 4.93 H MB (Mass) Troponin I 1.310 *H Test 10/02/18 18:59 10/02/18 20:06 10/02/18 21:09 10/02/18 22:02 Bedside Glucose 87 91 106 103 Test 10/02/18 22:21 10/02/18 22:57 10/03/18 01:06 10/03/18 02:16 Creatine Kinase 1390 H Creatine Kinase 0.3 Index Creatinine Kinase 4.40 H MB (Mass) Troponin I 0.955 *H Bedside Glucose 117 153 160 Test 10/03/18 03:04 10/03/18 03:30 10/03/18 05:05 10/03/18 05:21 Bedside Glucose 157 134 White Blood Count 15.4 #H Red Blood Count 4.00 L Hemoglobin 11.9 L Hematocrit 39.0 L Mean Corpuscular 97.5 Volume Mean Corpuscular 29.8 Hemoglobin Mean Corpuscular 30.5 L Hemoglobin Concen t Red Cell 12.0 Distribution Width Platelet Count 169 Mean Platelet 12.6 H Volume Immature 0.200 Granulocytes % Neutrophils % Segmented 72 Neutrophils % (Manual) Band Neutrophils 19 H % (Manual) Lymphocytes % Lymphocytes % 6 L (Manual) Monocytes % Monocytes % 3 (Manual) Eosinophils % Basophils % Nucleated Red 0.0 Blood Cells % Immature 0.030 Granulocytes # Neutrophils # Neutrophils # 11.5 H (Manual) Band Neutrophils 2.9 H # Lymphocytes 0.9 (Manual) Lymphocytes # Monocytes # Monocytes # 0.4 (Manual) Eosinophils # Basophils # Nucleated Red Blood Cells # Platelet Estimate NORMAL Polychromasia 1+ Ovalocytes 1+ Prothrombin Time 16.1 H Prothrombin Time 1.3 Ratio INR International 1.28 Normalized Ratio Activated 36.5 H Partial Thrombopl ast Time Thrombin Time 18.3 Sodium Level 157 H Potassium Level 3.8 Chloride Level 127 H Carbon Dioxide 23 Level Anion Gap 7 # Blood Urea 71 H Nitrogen Creatinine 2.63 #H Est Glomerular 24 L Filtrat Rate mL/min Glucose Level 164 # Lactic Acid Level 1.7 Calcium Level 8.2 L Phosphorus Level 3.1 Magnesium Level 2.3 Total Bilirubin 0.2 Direct Bilirubin 0.00 Indirect 0.2 Bilirubin Aspartate Amino 600 H Transf (AST/SGOT) Alanine 524 H Aminotransferase (ALT/SGPT) Alkaline 96 Phosphatase Total Protein 6.5 Albumin 3.2 L Globulin 3.30 H Albumin/Globulin 0.96 Ratio Lab Scanned BLOOD TRANSFUSIO Report N Test 10/03/18 06:20 10/03/18 08:12 Bedside Glucose 136 130 Subjective 24 Hr Interval Summary Free Text/Dictation MRI brain did confirm a large left MCA territory infarct which is chronic and again redemonstrated is an acute intracranial hemorrhage also on the left side. Appreciate recommendations from neurosurgery, no intervention. Will readdress with family goals of care, will recommend for hospice/comfort measures. Patient now off pressors, WBC trending down. On IV antibiotics. Renal function i mproved but very unlikely to be extubated bowl per pulmonary. Exam/Review of Systems Vital Signs Vitals Vital Signs Date Temp Pulse Resp B/P (MAP) Pulse Ox O2 O2 Flow FiO2 Time Delivery Rate 10/03/18 108 22 100 30 08:05 10/03/18 99.1 126/94 Mechanical 08:00 (105) Ventilator 10/01/18 15.0 23:52 Intake and Output 10/02/18 10/02/18 10/03/18 1515:00 23:00 07:00 IntakeIntake Total 1911.00 ml 1196.00 ml 900 ml OutputOutput Total 790 ml 1225 ml 1215 ml BalanceBalance 1121.00 ml -29.00 ml -315 ml Exam Constitutional: non-verbal, other (Intubated, obtunded.) Respiratory: diminished breath sounds (At bases bilaterally otherwise clear to auscultation upper lobes.), other (On mechanical ventilation) Cardiovascular: irregular rhythm (Atrial fibrillation, slight RVR but heart rate better controlled.) Gastrointestinal: soft, non-tender, other (G-tube in place) Musculoskeletal: swelling (Mild dependent edema) Extremities: normal pulses, other (Mild dependent edema) Neurological: lethargic, other (Irrigant encephalopathy/obtunded.) Medications Medications Current Medications Norepinephrine 250 ml @ 7.5 mls/hr ONCE STAT IV Last administered on 10/02/18at 00:39; Admin Dose 7.5 MLS/HR; Start 10/02/18 at 00:04; Stop 10/03/18 at 09:23 Vancomycin HCl (Vanco Iv Per Pharmacy) VANCOMYCIN PER PHARMACY PER PROTOCOL XX ; Start 10/02/18 at 02:30 Acetaminophen (Tylenol Tab) 650 mg Q4H PRN PO pain/fever; Start 10/02/18 at 02:30 Ondansetron HCl (Zofran Inj) 4 mg Q4H PRN IV nausea; Start 10/02/18 at 02:30 Pantoprazole (Protonix Iv) 40 mg DAILY@0600 IV Last administered on 10/03/18at 05:02; Admin Dose 40 MG; Start 10/02/18 at 06:00 Diagnostic Test (Pha) (Accu-Chek) 1 ea Q1H XX Last administered on 10/03/18at 05:58; Admin Dose 1 EA; Start 10/02/18 at 03:00 Insulin Human Regular 100 unit/ Sodium Chloride 100 ml @ 0 mls/hr PER PROTOCOL IV Last administered on 10/02/18at 18:10; Admin Dose 3 MLS/HR; Start 10/02/18 at 03:00 Miscellaneous Information (* Miscellaneous Pharmacy Order) Treatment of Hypoglycemia: 1.BG 51... Per protocol XX ; Start 10/02/18 at 03:00 Dextrose (D50w Syringe) 25 ml Q15M PRN IV DECREASED GLUCOSE; Start 10/02/18 at 03:00 Dextrose (D50w Syringe) 50 ml Q15M PRN IV DECREASED GLUCOSE; Start 10/02/18 at 03:00 Levetiracetam 100 ml @ 400 mls/hr Q12 IVPB Last administered on 10/02/18at 21:55; Admin Dose 400 MLS/HR; Start 10/02/18 at 04:00 Piperacillin Sod/ Tazobactam Sod 50 ml @ 100 mls/hr Q8 IVPB Last administered on 10/03/18at 05:02; Admin Dose 100 MLS/HR; Start 10/02/18 at 03:30 Sodium Bicarbonate 50 meq/Sodium Chloride 1,050 ml @ 100 mls/hr [id number] IV Last administered on 10/03/18at 02:20; Admin Dose 100 MLS/HR; Start 10/02/18 at 15:00 Morphine Sulfate (morphine SULFATE (PF)) 2 mg Q2 PRN IV pain Last administered on 10/03/18at 05:03; Admin Dose 2 MG; Start 10/03/18 at 02:48 Imaging Imaging PROCEDURE: MR Brain without contrast. CLINICAL INDICATION: Altered mental status, infarct. TECHNIQUE: An MRI of the brain was performed without contrast utilizing the following sequences: Sagittal T1 weighted, sagittal FLAIR, axial T1, axial FLAIR, axial T2 weighted, axial diffusion weighted, axial ADC mapping. Images were reviewed on a PACS workstation. DICOM Images are available. COMPARISON: CT head 10/02/2018 FINDINGS: Diffusion weighted sequences demonstrate mild amount of diffusion restriction along the periphery of the right thalamic hemorrhage, extending into the sub insular white matter and along the superior right temporal lobe. The thalamic hemorrhage measures approximately 3.9 x 1.5 cm, with mild amount of adjacent vasogenic edema. There is redemonstration of diffuse, extensive encephalomalacia involving the left temporal lobe, left frontal operculum, left posterior frontal and parietal lobe as well as the lateral left occipital lobe, consistent with large left MCA distribution infarct. No evidence of acute superimposed on chronic infarction. There is remote encephalomalacia involving the right inferior cerebellar hemisphere, related to remote prior infarct. There are linear areas of remote lacunar infarction involving the peripheral left cerebellar hemisphere. There is moderate ex vacuo enlargement of the lateral ventricles. There is a predominant cyst involving the encephalomalacia of the left centrum semiovale white matter. There is well-circumscribed encephalomalacia involving the anterior right frontal lobe with gliosis in the underlying white matter. There is moderate enlargement of the third ventricle. There is mild volume loss involving the left cerebral peduncle relative to the right with the as in the left cerebral peduncle, related to Wallerian degeneration. There is no extra-axial fluid collection, mass lesion, midline shift or hydrocephalous. There is moderate prominence of the cerebral sulci. The basal cisterns are patent. Normal flow voids are visible the proximal intracranial arteries and dural sinuses, indicating patency. The midline structures are intact. The paranasal sinuses, mastoid air cells and middle ear cavities are normally aerated. The orbits, calvarium and extracranial soft tissues are normal in appearance. The cerebellopontine angles are normal. No evidence of internal acoustic canal or cerebellopontine angle mass. IMPRESSION: 1. Redemonstration of acute intraparenchymal hemorrhage involving the left thalamus/posterior subinsular white matter measuring 3.9 x 1.5 cm, with mild amount of diffusion restriction along the periphery of the hemorrhage. 2. Large left MCA distribution remote prior infarct without evidence of acute superimposed on chronic infarct. 3. Chronic areas of infarct involving the paramedian anterior right frontal lobe, and bilateral cerebellar hemispheres. No evidence of acute superimposed on chronic infarct in these regions. 4. No extra-axial fluid collection, intraventricular hemorrhage, midline shift or hydrocephalus. RPTAT: HGAS .Neftali Jones MD, Date Time Electronically viewed and signed by .Neftali Jones MD, on 10/03/2018 00:34 PROCEDURE: MRA Brain without contrast. CLINICAL INDICATION: Altered mental status, stroke. TECHNIQUE: An MRI of the brain was performed utilizing the following sequences: 3-D [id number] imaging through the cerebral vasculature with MIP reconstructions. Images were reviewed on a PACS workstation. DICOM Images are available. COMPARISON: No prior studies are available for comparison. FINDINGS: Anterior circulation: The petrous and cavernous segments of the internal carotid arteries are normal in appearance. The supraclinoid internal carotid arteries are normal in appearance. The left M1 and proximal M2 segments are normal in appearance. There is limited visualization of M2 segments within the sylvian fissure due to the remote large left MCA distribution infarct. The right middle and bilateral anterior cerebral arteries as well as their branches are normal. The anterior communicating artery is patent. The posterior communicating arteries are diminutive, but patent. Posterior circulation: The right vertebral artery is dominant. The basilar artery and its branches are normal in appearance. The posterior cerebral arteries are normal in appearance. There is no aneurysm, hemodynamically significant stenosis or vascular malformation. Limited visualization of the remaining brain parenchyma is unremarkable. There is no intracranial hemorrhage, mass lesion or hydrocephalous. IMPRESSION: 1. Limited visualization of flow within the mid and distal M2 segments within the left sylvian fissure related to the large left MCA distribution infarct. 2. Otherwise, normal MRA of the head without contrast. No aneurysm, hemodynamically significant stenosis or vascular malformation. RPTAT: HGAS .Neftali Jones MD, MD Date Time Electronically viewed and signed by .Neftali Jones MD, MD on 10/03/2018 00:37 PROCEDURE: XR Chest. CLINICAL INDICATION: Pneumonia. TECHNIQUE: Chest, 1 view. COMPARISON: 10/02/2018. FINDINGS: Tracheostomy tube, left subclavian central venous catheter, and enteric tube appear stable in position. The cardiomediastinal silhouette demonstrates enlargement of the cardiac silhouette. There are aortic calcifications. Lung volumes are shallow with bibasilar opacities, left greater than right. No pleural effusion is seen. No definite pneumothorax is seen. No acute osseous abnormality. IMPRESSION: Cardiomegaly. Shallow lung volumes with bibasilar opacities, left greater than right, mildly increased on the left, representing atelectasis versus pneumonia. Stable support lines and tubes. RPTAT: AAEE Physician Alivia Date Time Electronically viewed and signed by Emily Fairbanks Physician on 10/03/2018 07:29 DALL[place] BUSTAMANTE Oct 03, 2018 09:42
[2018-10-04] VITALS (35 sets, daily range): BP systolic 105–140; BP diastolic 72–117; PULSE 84–115; RESP 15–28
[2018-10-04] MEDS: ACCU-CHEK XX SCH ×21 (00:18→23:00)
[2018-10-04] MEDS: SODIUM BICARBONATE (IV ADD) 50 MEQ in SOD CHLORIDE 0.45% 1,000 ML IV SCH ×2 (00:52→14:38)
[2018-10-04] MEDS: POTASSIUM CHLORIDE 50 ML IVPB SCH ×2 (03:56→05:10)
[2018-10-04] MEDS: morphine SULFATE/PF (2 MG/2 ML) SYG IV PRN ×2 (03:56→11:32)
[2018-10-04] MEDS: PANTOPRAZOLE 40 MG INJ IV SCH (05:10)
[2018-10-04] MEDS: PIPER-TAZO 2.25 GM (PMX) 50 ML IVPB SCH ×3 (05:11→20:38)
[2018-10-04] MEDS: BALSAM PERU/CASTOR OIL 60 GM TUBE TOP SCH ×2 (07:53→20:39)
--- NOTE | 2018-10-04 08:07 | CONS ---
Date/Time of Note Date/Time of Note DATE: 10/04/18 TIME: 08:03 Assessment/Plan Assessment/Plan Assessment/Plan Ventilator setting; AC of 16, tidal volume 500, PEEP of 5, 30% FiO2. Patient is currently on insulin drip 1.5 units/h. Assessment and recommendations; 1. Patient with history of chronic encephalopathy admitted for acute renal failure and severe sepsis. Patient has developed intracranial bleed. 2. Severe encephalopathy. 3. Acute renal failure with continually improving renal function. 4. Improving hypernatremia. 5. Stable seizure disorder. 6. Improving leukocytosis on current antimicrobial regimen. No obvious source identified though. 7. Chronic atrial fibrillation. 8. Diabetes. 9. Anemia and thrombocytopenia. Continue current supportive care. Prognosis is extremely poor. 35 minutes of critical care time was spent evaluating the patient. Result Diagram: 10/04/1822110/04/18221 Results 24hrs Laboratory Tests Test 10/03/18 08:12 10/03/18 11:21 10/03/18 12:26 10/03/18 13:54 Bedside Glucose 130 138 140 148 Test 10/03/18 17:39 10/03/18 18:54 10/03/18 20:34 10/03/18 22:10 Bedside Glucose 158 170 161 194 Test 10/03/18 23:19 10/04/18 00:16 10/04/18 02:15 10/04/18 02:22 Bedside Glucose 147 147 148 White Blood Count 10.6 # Red Blood Count 3.85 L Hemoglobin 11.4 L Hematocrit 36.6 L Mean Corpuscular 95.1 Volume Mean Corpuscular 29.6 Hemoglobin Mean Corpuscular 31.1 L Hemoglobin Concent Red Cell 11.9 Distribution Width Platelet Count 137 L Mean Platelet Volume 11.5 H Immature 0.600 H Granulocytes % Neutrophils % 83.8 H Lymphocytes % 9.6 L Monocytes % 5.2 Eosinophils % 0.7 Basophils % 0.1 Nucleated Red Blood 0.0 Cells % Immature 0.060 H Granulocytes # Neutrophils # 8.9 H Lymphocytes # 1.0 Monocytes # 0.6 Eosinophils # 0.1 Basophils # 0.0 Nucleated Red Blood 0.0 Cells # Sodium Level 153 H Potassium Level 3.2 L Chloride Level 120 H Carbon Dioxide Level 28 Anion Gap 5 Blood Urea Nitrogen 46 #H Creatinine 1.99 H Est Glomerular 34 L Filtrat Rate mL/min Glucose Level 154 Calcium Level 7.9 L Phosphorus Level 2.6 Magnesium Level 2.2 Test 10/04/18 04:01 10/04/18 05:00 10/04/18 06:00 Bedside Glucose 139 148 Vancomycin Level 12.1 Trough Consultation Date/Type/Reason Admit Date/Time Oct 02, 2018 at 01:47 Initial Consult Date 10/02/18 Type of Consult Pulmonary/critical care Pulmonary consult requested for evaluation of respiratory failure and sepsis. History of presenting illness; patient is a 68-year-old male who was admitted to the hospital because of altered mental status with severe lethargic. Patient was diagnosed with DKA with severe hyperglycemia and had to be intubated because of respiratory failure. By the time I saw him, patient is orally intubated, on ventilator and unresponsive. Patient however did not appear to be in any distress. Past medical history; 1. History of CVA with apparent encephalopathy. 2. History of dysphagia, status post PEG tube placement. 3. Diabetes. 4. History of seizure disorder. 5. Baseline renal status is unknown. 6. Chronic atrial fibrillation. Medications; reviewed. Patient is currently on insulin drip at 16 units/h as well as Levophed at 6 mics per minute. Other medications were reviewed. Allergies; none. Occupational history, social history, family history not available. Review of system; unable to be obtained. General exam; elderly male, orally intubated, unresponsive, currently in no distress. Requesting Provider: CANDELARIA ARROYO MD 24 HR Interval Summary Free Text/Dictation Patient's condition remains critical. Remains essentially unresponsive. Has remained hemodynamically stable. General exam; elderly male, orally intubated. Occasionally awake. Currently no distress. Exam/Review of Systems Vital Signs Vitals Vital Signs Date Temp Pulse Resp B/P (MAP) Pulse Ox O2 O2 Flow FiO2 Time Delivery Rate 10/04/18 101 16 105/78 99 Mechanical 06:00 (87) Ventilator 10/04/18 30 05:00 10/04/18 98.3 04:00 10/01/18 15.0 23:52 Intake and Output 10/03/18 10/03/18 10/04/18 1414:59 22:59 06:59 IntakeIntake Total 1433.5 ml 1248.5 ml 740 ml OutputOutput Total 1090 ml 870 ml 1020 ml BalanceBalance 343.5 ml 378.5 ml -280 ml Exam HEENT exam; supple neck, no JVD. No lymphadenopathy. Midline trachea. No thyromegaly. Orally intubated. Patient has fair dentition. There is left parietal skull depression. Pupils are small bilaterally. Chest exam; clear to auscultation. S1-S2 audible, no murmurs. Irregular rhythm. Abdomen exam; soft, no organomegaly. G-tube in place. Bowel sounds audible. Extremity exam; no edema. CONSUMER SERVICES CONSULTANT exam; patient remains awake but noncommunicative. Medications Medications Current Medications Vancomycin HCl (Vanco Iv Per Pharmacy) VANCOMYCIN PER PHARMACY PER PROTOCOL XX ; Start 10/02/18 at 02:30 Acetaminophen (Tylenol Tab) 650 mg Q4H PRN PO pain/fever; Start 10/02/18 at 02:30 Ondansetron HCl (Zofran Inj) 4 mg Q4H PRN IV nausea; Start 10/02/18 at 02:30 Pantoprazole (Protonix Iv) 40 mg DAILY@0600 IV Last administered on 10/04/18at 05:10; Admin Dose 40 MG; Start 10/02/18 at 06:00 Diagnostic Test (Pha) (Accu-Chek) 1 ea Q1H XX Last administered on 10/04/18at 06:01; Admin Dose 1 EA; Start 10/02/18 at 03:00 Insulin Human Regular 100 unit/ Sodium Chloride 100 ml @ 0 mls/hr PER PROTOCOL IV Last administered on 10/02/18at 18:10; Admin Dose 3 MLS/HR; Start 10/02/18 at 03:00 Miscellaneous Information (* Miscellaneous Pharmacy Order) Treatment of Hypoglycemia: 1.BG 51... Per protocol XX ; Start 10/02/18 at 03:00 Dextrose (D50w Syringe) 25 ml Q15M PRN IV DECREASED GLUCOSE; Start 10/02/18 at 03:00 Dextrose (D50w Syringe) 50 ml Q15M PRN IV DECREASED GLUCOSE; Start 10/02/18 at 03:00 Levetiracetam 100 ml @ 400 mls/hr Q12 IVPB Last administered on 10/03/18at 20:37; Admin Dose 400 MLS/HR; Start 10/02/18 at 04:00 Piperacillin Sod/ Tazobactam Sod 50 ml @ 100 mls/hr Q8 IVPB Last administered on 10/04/18at 05:11; Admin Dose 100 MLS/HR; Start 10/02/18 at 03:30 Sodium Bicarbonate 50 meq/Sodium Chloride 1,050 ml @ 80 mls/hr Q13H8M IV Last administered on 10/04/18at 00:52; Admin Dose 80 MLS/HR; Start 10/02/18 at 15:00 Morphine Sulfate (morphine SULFATE (PF)) 2 mg Q2 PRN IV pain Last administered on 10/04/18at 03:56; Admin Dose 2 MG; Start 10/03/18 at 02:48 KAYE CRUZ Oct 04, 2018 08:07
[2018-10-04] MEDS: LEVETIRACETAM 1000 MG (PMX) 100 ML IVPB SCH ×2 (09:07→20:34)
--- NOTE | 2018-10-04 09:33 | PN ---
Date/Time of Note Date/Time of Note DATE: 10/04/18 TIME: 09:16 Assessment/Plan VTE Prophylaxis Risk score (from Ns)>0 risk: 9 SCD applied (from Ns): Yes Pharmacological prophylaxis: NA/contraindicated Pharm contraindication: bleeding Lines/Catheters IV Catheter Type (from Nrsg): Central Line Central line still needed: Yes (IV access ) Urinary Cath still in place: Yes Reason Cath still needed: terminal illness/intractable pain, other (indicate) (Acute renal failure) Assessment/Plan Assessment/Plan 68-year-old male with: 1. Septic shock, source likely aspiration pneumonia, patient currently on coverage for HCAP versus aspiration pneumonia with cefepime and vancomycin. Continue IV fluids, respiratory support with mechanical ventilation, off pressors. Resolved leukocytosis. Follow-up CBC, trending down as of today. Blood cultures and urine culture NGTD. Patient full code for now, family meeting this morning. 2. Aspiration pneumonia, likely given that the patient is obtunded at baseline and went into respiratory failure by the time he presented in the hospital in setting of tachypnea and respiratory insufficiency. Continue cefepime. Discontinue vancomycin, MRSA screen negative. Follow-up chest x-ray stable with findings of infiltrate at bases. 3. Acute respiratory failure in setting of septic shock and probable aspiration pneumonia. Patient on mechanical ventilation. No sedation needed given the fact that he is obtunded at baseline. Pulmonary following. FiO2 30%, discussed with pulmonary, with new findings of intracranial hemorrhage and significant encephalopathy, unlikely to be able to extubate patient. Will need to again discuss with family goals of care and encourage palliative care/hospice placement with comfort measures. 4. Acute renal failure, unclear if his baseline renal insufficiency or CKD, patient definitely significantly dehydrated and hypovolemic. On IV fluids currently, appreciate nephrology recommendations. Renal function improving, blood sugar now controlled with insulin drip. Hypernatremia improving Continue insulin drip and IV fluids along with free water. Monitor urine output, electrolytes and renal function. 5. Acute intracranial hemorrhage, MRI MRA showing and changed intracranial hemorrhage compared to CAT scan done yesterday earlier. Appreciate recommendations from neurosurgery, no intervention at this time recommending readdressing goals of care. Patient is also found to have a large left MCA territory ischemic stroke which is chronic and was diagnosed back in August 2018 6. Diabetes mellitus, status post hyperosmolar hyperglycemic crisis, no blood sugar controlled, to remain on insulin drip for now until goals of care cl arified. A1c 9.8. 7. Chronic atrial fibrillation, currently in atrial fibrillation with slightly better heart rate control. Given findings of acute intracranial bleeding, all anticoagulation discontinued. Episode of nonsustained V. tach this morning, resolved, electrolytes repleted. 8. Elevated troponin, in setting of acute renal failure, septic shock and A. fib with RVR. 2D echocardiogram ordered, given the current finding, will hold of cardiology evaluation since goals of care needs to be readdressed and likely patient will be comfort measures in setting of intracranial hemorrhage. Need to avoid antiplatelets and anticoagulation for now. Troponin did trend down. 9. Encephalopathy, acute on chronic, obtunded at baseline with likely worsening mental status with findings of acute intracranial hemorrhage. Patient likely not to be extubated bowl according to pulmonary. Will reassess goals of care with family today. 10. Hypertension, all medications on hold for now. 11. Dysphagia secondary to recent CVA, status post G-tube placement in August 2018. Currently getting free water, will readdress goals of care and subsequent nutritional needs depending on goals of care. Hopefully patient's family will proceed with DNR CODE STATUS and comfort measures. Prophylaxis: Protonix for GI prophylaxis, SCDs for DVT prophylaxis Disposition: Patient currently in ICU, intubated, on insulin drip. Patient with extremely poor prognosis given additional findings of intracranial bleeding with already known severe encephalopathy and underlying previous aneurysmal bleed along with a recent large left MCA CVA. Patient currently also with additional organ dysfunction including respiratory failure, renal insufficiency. Current clinical condition is poor and again prognosis is extremely poor, it is the opinion of the medical team that the patient should proceed with a DNR status and comfort measures, will meet with family this morning. Still full code until family meeting today. Result Diagram: 10/04/1822110/04/18221 Results 24hrs Laboratory Tests Test 10/03/18 11:21 10/03/18 12:26 10/03/18 13:54 10/03/18 17:39 Bedside Glucose 138 140 148 158 Test 10/03/18 18:54 10/03/18 20:34 10/03/18 22:10 10/03/18 23:19 Bedside Glucose 170 161 194 147 Test 10/04/18 00:16 10/04/18 02:15 10/04/18 02:22 10/04/18 04:01 Bedside Glucose 147 148 139 White Blood Count 10.6 # Red Blood Count 3.85 L Hemoglobin 11.4 L Hematocrit 36.6 L Mean Corpuscular 95.1 Volume Mean Corpuscular 29.6 Hemoglobin Mean Corpuscular 31.1 L Hemoglobin Concent Red Cell 11.9 Distribution Width Platelet Count 137 L Mean Platelet Volume 11.5 H Immature 0.600 H Granulocytes % Neutrophils % 83.8 H Lymphocytes % 9.6 L Monocytes % 5.2 Eosinophils % 0.7 Basophils % 0.1 Nucleated Red Blood 0.0 Cells % Immature 0.060 H Granulocytes # Neutrophils # 8.9 H Lymphocytes # 1.0 Monocytes # 0.6 Eosinophils # 0.1 Basophils # 0.0 Nucleated Red Blood 0.0 Cells # Sodium Level 153 H Potassium Level 3.2 L Chloride Level 120 H Carbon Dioxide Level 28 Anion Gap 5 Blood Urea Nitrogen 46 #H Creatinine 1.99 H Est Glomerular 34 L Filtrat Rate mL/min Glucose Level 154 Calcium Level 7.9 L Phosphorus Level 2.6 Magnesium Level 2.2 Test 10/04/18 05:00 10/04/18 06:00 10/04/18 07:51 10/04/18 09:05 Vancomycin Level 12.1 Trough Bedside Glucose 148 142 154 Subjective 24 Hr Interval Summary Free Text/Dictation Patient mental status unchanged, he is significantly obtunded, has not required any sedation throughout. Noted episode of nonsustained V. tach overnight, potassium repleted this morning. Awaiting family for planned meeting today, wi ll suggest change of CODE STATUS to DNR and proceed with comfort measures and terminal extubation with hospice placement. Exam/Review of Systems Vital Signs Vitals Vital Signs Date Temp Pulse Resp B/P (MAP) Pulse Ox O2 O2 Flow FiO2 Time Delivery Rate 10/04/18 97 08:00 10/04/18 16 105/78 99 Mechanical 06:00 (87) Ventilator 10/04/18 30 05:00 10/04/18 98.3 04:00 10/01/18 15.0 23:52 Intake and Output 10/03/18 10/03/18 10/04/18 1515:00 23:00 07:00 IntakeIntake Total 1463.5 ml 1147.0 ml 710 ml OutputOutput Total 1065 ml 890 ml 900 ml BalanceBalance 398.5 ml 257.0 ml -190 ml Exam Constitutional: non-verbal, other (Obtunded) Respiratory: diminished breath sounds (Bases bilaterally), other (On mechanical ventilation) Cardiovascular: irregular rhythm (Controlled A. fib) Gastrointestinal: soft, non-tender, other (G-tube in place) Musculoskeletal: nl extremities to inspection Extremities: normal pulses, edema (Pending edema +1 generalized) Neurological: lethargic, other (Obtunded, minimally responsive) Medications Medications Current Medications Vancomycin HCl (Vanco Iv Per Pharmacy) VANCOMYCIN PER PHARMACY PER PROTOCOL XX ; Start 10/02/18 at 02:30 Acetaminophen (Tylenol Tab) 650 mg Q4H PRN PO pain/fever; Start 10/02/18 at 02:30 Ondansetron HCl (Zofran Inj) 4 mg Q4H PRN IV nausea; Start 10/02/18 at 02:30 Pantoprazole (Protonix Iv) 40 mg DAILY@0600 IV Last administered on 10/04/18at 05:10; Admin Dose 40 MG; Start 10/02/18 at 06:00 Diagnostic Test (Pha) (Accu-Chek) 1 ea Q1H XX Last administered on 10/04/18at 06:01; Admin Dose 1 EA; Start 10/02/18 at 03:00 Insulin Human Regular 100 unit/ Sodium Chloride 100 ml @ 0 mls/hr PER PROTOCOL IV Last administered on 10/02/18at 18:10; Admin Dose 3 MLS/HR; Start 10/02/18 at 03:00 Miscellaneous Information (* Miscellaneous Pharmacy Order) Treatment of Hypoglycemia: 1.BG 51... Per protocol XX ; Start 10/02/18 at 03:00 Dextrose (D50w Syringe) 25 ml Q15M PRN IV DECREASED GLUCOSE; Start 10/02/18 at 03:00 Dextrose (D50w Syringe) 50 ml Q15M PRN IV DECREASED GLUCOSE; Start 10/02/18 at 03:00 Levetiracetam 100 ml @ 400 mls/hr Q12 IVPB Last administered on 10/04/18at 09:07; Admin Dose 400 MLS/HR; Start 10/02/18 at 04:00 Piperacillin Sod/ Tazobactam Sod 50 ml @ 100 mls/hr Q8 IVPB Last administered on 10/04/18at 05:11; Admin Dose 100 MLS/HR; Start 10/02/18 at 03:30 Sodium Bicarbonate 50 meq/Sodium Chloride 1,050 ml @ 80 mls/hr Q13H8M IV Last administered on 10/04/18at 00:52; Admin Dose 80 MLS/HR; Start 10/02/18 at 15:00 Morphine Sulfate (morphine SULFATE (PF)) 2 mg Q2 PRN IV pain Last administered on 10/04/18at 03:56; Admin Dose 2 MG; Start 10/03/18 at 02:48 DALLAS BUSTAMANTE Oct 04, 2018 09:26
--- NOTE | 2018-10-04 11:55 | QN ---
Documentation Comment I had a discussion with the daughter at the bedside who is currently the DURABLE POWER OF CHOCOLATE PACKER. She was updated regarding the patient's current medical condition and and poor prognosis. We have discussed the fact that he is being treated for pneumonia and his vitals are stabilizing, his renal function is also improving however his encephalopathy remains severe to a point where he cannot protect his airway currently especially in the setting of this additional intracranial hemorrhage diagnosed on this admission. It is the opinion of the medical team that the patient should be a DO NOT RESUSCITATE and would benefit from comfort measures and a possibly terminal extubation. The daughter at bedside currently, has agreed with a DO NOT RESUSCITATE and no escalation of care. She needs to talk to the rest of the family prior to f urther decision regarding terminal extubation. Hospice congressional representative also at bedside to start discussion regarding comfort measures and end of life. DALLAS BUSTAMANTE Oct 04, 2018 11:55
--- NOTE | 2018-10-04 12:30 | CONS ---
Date/Time of Note Date/Time of Note DATE: 10/04/18 TIME: 12:30 Assessment/Plan Assessment/Plan Assessment/Plan 1. acute kidney injury on CKD unknown baseline Cr due to ATN from septic shock + severe prerenal azotemia from DKA 2. Acute hyperkalemia due to RIVAS 3. Acute hypernatremia due to severe dehydration from Hyperglycemia hyperosmolar State 4. Acute respiratory failure possible due to Aspiration PNA + septic shock, intubated on ventilator 5. Septic shock 2/2 Aspiration PNA 6. Intracranial bleeding 7. H/o atrial fibrillation on Eliis unitl admission 8. H/o HTN 9. Acute on chronic encephalopathy 10. Elevated Troponin 11. Dysphagia secondary to CVA s/p G tube placement 12. Recent acute CVA and status post aneurysm and hematoma evacuation in 2016, patient on Keppra for seizure prophylaxis. Again baseline significant encephalopathy and mostly bedbound for the past 2 years with recent worsening few weeks ago. Plan: BUN/Cr 46/1.99 Na improved to 153, HCo3 28, K 3.3- d/c bicarbonate drip, start 1/2 NS with KCl 10mEQ at 80 cc/hr Renal US has been done which is unremarkable except left kidney cyst ventilator care as per pulmonary Urine output 2.9 liter in last 24 hr IV abx to cover him for HCAP- Renally dose all abx and monitor electrolytes Not a Hemodialysis candidate due to ICH, poor prognosis and comorbities will follow up Result Diagram: 10/04/1822110/04/18221 Results 24hrs Laboratory Tests Test 10/03/18 13:54 10/03/18 17:39 10/03/18 18:54 10/03/18 20:34 Bedside Glucose 148 158 170 161 Test 10/03/18 22:10 10/03/18 23:19 10/04/18 00:16 10/04/18 02:15 Bedside Glucose 194 147 147 148 Test 10/04/18 02:22 10/04/18 04:01 10/04/18 05:00 10/04/18 06:00 White Blood Count 10.6 # Red Blood Count 3.85 L Hemoglobin 11.4 L Hematocrit 36.6 L Mean Corpuscular 95.1 Volume Mean Corpuscular 29.6 Hemoglobin Mean Corpuscular 31.1 L Hemoglobin Concent Red Cell 11.9 Distribution Width Platelet Count 137 L Mean Platelet Volume 11.5 H Immature 0.600 H Granulocytes % Neutrophils % 83.8 H Lymphocytes % 9.6 L Monocytes % 5.2 Eosinophils % 0.7 Basophils % 0.1 Nucleated Red Blood 0.0 Cells % Immature 0.060 H Granulocytes # Neutrophils # 8.9 H Lymphocytes # 1.0 Monocytes # 0.6 Eosinophils # 0.1 Basophils # 0.0 Nucleated Red Blood 0.0 Cells # Sodium Level 153 H Potassium Level 3.2 L Chloride Level 120 H Carbon Dioxide Level 28 Anion Gap 5 Blood Urea Nitrogen 46 #H Creatinine 1.99 H Est Glomerular 34 L Filtrat Rate mL/min Glucose Level 154 Calcium Level 7.9 L Phosphorus Level 2.6 Magnesium Level 2.2 Bedside Glucose 139 148 Vancomycin Level 12.1 Trough Test 10/04/18 07:51 10/04/18 09:05 10/04/18 10:13 10/04/18 10:58 Bedside Glucose 142 154 165 163 Test 10/04/18 12:05 Bedside Glucose 182 Consultation Date/Type/Reason Admit Date/Time Oct 02, 2018 at 01:47 Initial Consult Date 10/02/18 Type of Consult NEPHROLOGY Requesting Provider: CANDELARIA ARROYO MD 24 HR Interval Summary Free Text/Dictation pt remains intubated, on ventilator, unresponsive, BP stable, DNR now Exam/Review of Systems Vital Signs Vitals Vital Signs Date Temp Pulse Resp B/P (MAP) Pulse Ox O2 O2 Flow FiO2 Time Delivery Rate 10/04/18 98.6 111 17 117/87 97 Mechanical 12:00 (97) Ventilator 10/04/18 30 08:00 10/01/18 15.0 23:52 Intake and Output 10/03/18 10/03/18 10/04/18 1515:00 23:00 07:00 IntakeIntake Total 1463.5 ml 1147.0 ml 821.5 ml OutputOutput Total 1065 ml 890 ml 1000 ml BalanceBalance 398.5 ml 257.0 ml -178.5 ml Exam Constitutional: non-verbal, distress (moderate distress, ) ENMT: intubated (on ventilator) Neck: supple Respiratory: congested cough, crackles/rales, diminished breath sounds Cardiovascular: edema, irregular rhythm Gastrointestinal: soft, non-tender, other (G tube in place ) Musculoskeletal: swelling Neurological: other (on Ventilator, unresponsive ) Medications Medications Current Medications Acetaminophen (Tylenol Tab) 650 mg Q4H PRN PO pain/fever; Start 10/02/18 at 02:30 Ondansetron HCl (Zofran Inj) 4 mg Q4H PRN IV nausea; Start 10/02/18 at 02:30 Pantoprazole (Protonix Iv) 40 mg DAILY@0600 IV Last administered on 10/04/18at 05:10; Admin Dose 40 MG; Start 10/02/18 at 06:00 Diagnostic Test (Pha) (Accu-Chek) 1 ea Q1H XX Last administered on 10/04/18at 06:01; Admin Dose 1 EA; Start 10/02/18 at 03:00 Insulin Human Regular 100 unit/ Sodium Chloride 100 ml @ 0 mls/hr PER PROTOCOL IV Last administered on 10/02/18at 18:10; Admin Dose 3 MLS/HR; Start 10/02/18 at 03:00 Miscellaneous Information (* Miscellaneous Pharmacy Order) Treatment of Hypoglycemia: 1.BG 51... Per protocol XX ; Start 10/02/18 at 03:00 Dextrose (D50w Syringe) 25 ml Q15M PRN IV DECREASED GLUCOSE; Start 10/02/18 at 03:00 Dextrose (D50w Syringe) 50 ml Q15M PRN IV DECREASED GLUCOSE; Start 10/02/18 at 03:00 Levetiracetam 100 ml @ 400 mls/hr Q12 IVPB Last administered on 10/04/18at 09:07; Admin Dose 400 MLS/HR; Start 10/02/18 at 04:00 Piperacillin Sod/ Tazobactam Sod 50 ml @ 100 mls/hr Q8 IVPB Last administered on 10/04/18at 05:11; Admin Dose 100 MLS/HR; Start 10/02/18 at 03:30 Sodium Bicarbonate 50 meq/Sodium Chloride 1,050 ml @ 80 mls/hr Q13H8M IV Last administered on 10/04/18at 00:52; Admin Dose 80 MLS/HR; Start 10/02/18 at 15:00 Morphine Sulfate (morphine SULFATE (PF)) 2 mg Q2 PRN IV pain Last administered on 10/04/18at 11:32; Admin Dose 2 MG; Start 10/03/18 at 02:48 KAMILA FAGAN MD Oct 04, 2018 12:30
[2018-10-04] MEDS ORDERED: ACYCLOVIR 500 MG in SOD CHLORIDE 0.9% 100 ML IVPB ONE (19:00)
[2018-10-04] MEDS: INSULIN HUMAN REGULAR 100 UNIT in SOD CHLORIDE 0.9% 99 ML IV SCH (20:38)
[2018-10-04] MEDS: POTASSIUM CHLORIDE 10 MEQ in SOD CHLORIDE 0.45% 1,000 ML IV SCH (21:00)
[2018-10-05] VITALS (36 sets, daily range): BP systolic 114–160; BP diastolic 67–105; PULSE 73–150; RESP 16–24
[2018-10-05] MEDS: ACCU-CHEK XX SCH ×22 (01:00→22:14)
[2018-10-05] MEDS: INSULIN HUMAN REGULAR 100 UNIT in SOD CHLORIDE 0.9% 99 ML IV SCH (02:00)
[2018-10-05] MEDS: PANTOPRAZOLE 40 MG INJ IV SCH (05:50)
[2018-10-05] MEDS: PIPER-TAZO 2.25 GM (PMX) 50 ML IVPB SCH ×3 (05:50→20:40)
[2018-10-05] MEDS: BALSAM PERU/CASTOR OIL 60 GM TUBE TOP SCH ×2 (08:13→20:21)
[2018-10-05] MEDS: LEVETIRACETAM 1000 MG (PMX) 100 ML IVPB SCH ×2 (08:31→20:17)
--- NOTE | 2018-10-05 09:42 | CONS ---
Date/Time of Note Date/Time of Note DATE: 10/05/18 TIME: 09:39 Assessment/Plan Assessment/Plan Assessment/Plan Ventilator setting; AC of 16, tidal volume 500, PEEP of 5, 30% FiO2. Patient is currently on insulin drip at 2 units/h. Assessment and recommendations; next 1. Patient with history of chronic encephalopathy admitted for altered mental status. Acute intracranial bleed. 2. Acute renal injury with continually improving renal function. 3. Diabetes. 4. History of stable seizure disorder. 5. Chronic atrial fibrillation. 6. Anemia and thrombocytopenia. 7. Sepsis, source is not clear. However leukocytosis is improving on current antimicrobial regimen. 8. Improving hypernatremia. Continue current supportive care. Continue antibiotics for additional 48 hours. Prognosis is very poor. 35 minutes of critical care time was spent evaluating the patient. Result Diagram: 10/05/18 0400 10/05/18 0400 Results 24hrs Laboratory Tests Test 10/04/18 10:13 10/04/18 10:58 10/04/18 12:05 10/04/18 13:51 Bedside Glucose 165 163 182 172 Test 10/04/18 14:59 10/04/18 15:56 10/04/18 16:59 10/04/18 18:00 Bedside Glucose 174 163 179 170 Test 10/04/18 18:53 10/04/18 20:07 10/04/18 22:32 10/04/18 23:55 Bedside Glucose 167 165 155 159 Test 10/05/18 01:55 10/05/18 04:00 10/05/18 04:44 10/05/18 05:49 Bedside Glucose 132 145 138 White Blood Count 7.3 # Red Blood Count 3.82 L Hemoglobin 11.4 L Hematocrit 36.5 L Mean Corpuscular 95.5 Volume Mean Corpuscular 29.8 Hemoglobin Mean Corpuscular 31.2 L Hemoglobin Concent Red Cell 11.9 Distribution Width Platelet Count 147 Mean Platelet Volume 12.2 H Immature 0.500 H Granulocytes % Neutrophils % 72.1 Lymphocytes % 18.1 Monocytes % 6.7 Eosinophils % 2.3 Basophils % 0.3 Nucleated Red Blood 0.0 Cells % Immature 0.040 H Granulocytes # Neutrophils # 5.3 Lymphocytes # 1.3 Monocytes # 0.5 Eosinophils # 0.2 Basophils # 0.0 Nucleated Red Blood 0.0 Cells # Sodium Level 152 H Potassium Level 3.4 L Chloride Level 118 H Carbon Dioxide Level 28 Anion Gap 6 Blood Urea Nitrogen 32 #H Creatinine 1.63 H Est Glomerular 43 L Filtrat Rate mL/min Glucose Level 156 Calcium Level 8.1 L Phosphorus Level 2.6 Magnesium Level 2.2 Test 10/05/18 08:11 Bedside Glucose 179 Consultation Date/Type/Reason Admit Date/Time Oct 02, 2018 at 01:47 Initial Consult Date 10/02/18 Type of Consult Pulmonary/critical care Pulmonary consult requested for evaluation of respiratory failure and sepsis. History of presenting illness; patient is a 68-year-old male who was admitted to the hospital because of altered mental status with severe lethargic. Patient was diagnosed with DKA with severe hyperglycemia and had to be intubated because of respiratory failure. By the time I saw him, patient is orally intubated, on ventilator and unresponsive. Patient however did not appear to be in any distress. Past medical history; 1. History of CVA with apparent encephalopathy. 2. History of dysphagia, status post PEG tube placement. 3. Diabetes. 4. History of seizure disorder. 5. Baseline renal status is unknown. 6. Chronic atrial fibrillation. Medications; reviewed. Patient is currently on insulin drip at 16 units/h as well as Levophed at 6 mics per minute. Other medications were reviewed. Allergies; none. Occupational history, social history, family history not available. Review of system; unable to be obtained. General exam; elderly male, orally intubated, unresponsive, currently in no distress. Requesting Provider: CANDELARIA ARROYO MD 24 HR Interval Summary Free Text/Dictation Patient's condition remains critical. Remains completely unresponsive. Patient however has remained hemodynamically stable. General exam; elderly male, orally intubated, unresponsive, currently in no distress. Exam/Review of Systems Vital Signs Vitals Vital Signs Date Temp Pulse Resp B/P (MAP) Pulse Ox O2 O2 Flow FiO2 Time Delivery Rate 10/05/18 98.2 83 16 127/87 100 Mechanical 07:00 (100) Ventilator 10/05/18 30 05:06 10/01/18 15.0 23:52 Intake and Output 10/04/18 10/04/18 10/05/18 1515:00 23:00 07:00 IntakeIntake Total 1567.0 ml 1546 ml 1443.5 ml OutputOutput Total 975 ml 980 ml 770 ml BalanceBalance 592.0 ml 566 ml 673.5 ml Exam H EENT exam; supple neck, no JVD. No lymphadenopathy. Midline trachea. No thyromegaly. There is a stable left parietal skull depression. Patient has fair dentition. Pupils are small bilaterally. Patient has fair dentition. Orally intubated. Chest exam; diminished but clear breath sounds. S1-S2 audible, no murmurs. Irregular rhythm. Abdomen exam; soft, no organomegaly. G-tube in place. Bowel sounds audible. Extremity exam; no edema. Pulses 1+. BRONZE PLATER exam; patient remains unresponsive. Medications Medications Current Medications Acetaminophen (Tylenol Tab) 650 mg Q4H PRN PO pain/fever; Start 10/02/18 at 02:30 Ondansetron HCl (Zofran Inj) 4 mg Q4H PRN IV nausea; Start 10/02/18 at 02:30 Pantoprazole (Protonix Iv) 40 mg DAILY@0600 IV Last administered on 10/05/18at 05:50; Admin Dose 40 MG; Start 10/02/18 at 06:00 Diagnostic Test (Pha) (Accu-Chek) 1 ea Q1H XX Last administered on 10/05/18at 08:12; Admin Dose 1 EA; Start 10/02/18 at 03:00 Insulin Human Regular 100 unit/ Sodium Chloride 100 ml @ 0 mls/hr PER PROTOCOL IV Last administered on 10/05/18at 02:00; Admin Dose 1.5 MLS/HR; Start 10/02/18 at 03:00 Miscellaneous Information (* Miscellaneous Pharmacy Order) Treatment of Hypoglycemia: 1.BG 51... Per protocol XX ; Start 10/02/18 at 03:00 Dextrose (D50w Syringe) 25 ml Q15M PRN IV DECREASED GLUCOSE; Start 10/02/18 at 03:00 Dextrose (D50w Syringe) 50 ml Q15M PRN IV DECREASED GLUCOSE; Start 10/02/18 at 03:00 Levetiracetam 100 ml @ 400 mls/hr Q12 IVPB Last administered on 10/05/18at 08:31; Admin Dose 400 MLS/HR; Start 10/02/18 at 04:00 Piperacillin Sod/ Tazobactam Sod 50 ml @ 100 mls/hr Q8 IVPB Last administered on 10/05/18at 05:50; Admin Dose 100 MLS/HR; Start 10/02/18 at 03:30 Morphine Sulfate (morphine SULFATE (PF)) 2 mg Q2 PRN IV pain Last administered on 10/04/18at 11:32; Admin Dose 2 MG; Start 10/03/18 at 02:48 Potassium Chloride 10 meq/ Sodium Chloride 1,005 ml @ 80 mls/hr [id number] IV Last administered on 10/04/18at 21:00; Admin Dose 80 MLS/HR; Start 10/04/18 at 21:00 KAYE CRUZ Oct 05, 2018 09:42
--- NOTE | 2018-10-05 11:33 | PN ---
Date/Time of Note Date/Time of Note DATE: 10/05/18 TIME: 11:21 Assessment/Plan VTE Prophylaxis Risk score (from Ns)>0 risk: 13 SCD applied (from Ns): Yes Pharmacological prophylaxis: NA/contraindicated Pharm contraindication: bleeding Lines/Catheters IV Catheter Type (from Nrsg): Central Line Central line still needed: Yes (IV access ) Urinary Cath still in place: Yes Reason Cath still needed: terminal illness/intractable pain, other (indicate) (ARF) Assessment/Plan Assessment/Plan 68-year-old male with: 1. S/p septic shock, source likely aspiration pneumonia, patient currently on coverage for HCAP versus aspiration pneumonia with cefepime. Continue IV fluids, respiratory support with mechanical ventilation, off pressors. Resolved leukocytosis. Follow-up CBC, trending down as of today. Blood cultures and urine culture NGTD. DNR now and no escalation of care. 2. Aspiration pneumonia, likely given that the patient is obtunded at baseline and went into respiratory failure by the time he presented in the hospital in setting of tachypnea and respiratory insufficiency. Continue cefepime. Follow-up chest x-ray stable with findings of infiltrate at bases. 3. Acute respiratory failure in setting of septic shock and probable aspiration pneumonia. Patient on mechanical ventilation. No sedation needed given the fact that he is obtunded at baseline. Pulmonary following. FiO2 30%, discussed with pulmonary, with new findings of intracranial hemorrhage and significant encephalopathy, unlikely to be able to extubate patient. Awaiting family decision regarding terminal extubation, will keep discussion with family, likely patient will need inpatient hospice post terminal extubation. He is now DNR with no escalation of care after family meeting yesterday. 4. Acute renal failure, unclear if his baseline renal insufficiency or CKD, patient definitely significantly dehydrated and hypovolemic. On IV fluids currently, appreciate nephrology recommendations. Renal function keeps improving, blood sugar now controlled with insulin drip. Hypernatremia improving Continue insulin drip and IV fluids along with free water. Monitor urine output, electrolytes and renal function. 5. Acute intracranial hemorrhage, MRI MRA showing and changed intracranial hemorrhage compared to CAT scan done yesterday earlier. Appreciate recommendations from neurosurgery, no intervention at this time. Patient is also found to have a large left MCA territory ischemic stroke which is chronic and was diagnosed back in August 2018 6. Diabetes mellitus, status post hyperosmolar hyperglycemic crisis, no blood sugar controlled, to remain on insulin drip for now. A1c 9.8. 7. Chronic atrial fibrillation, currently in atrial fibrillation with slightly better heart rate control. Given findings of acute intracranial bleeding, all anticoagulation discontinued. Episode of nonsustained V. tach yesterday, resolved, electrolytes to be repleted prn. 8. Elevated troponin, in setting of acute renal failure, septic shock and A. fib with RVR. 2D echocardiogram ordered, given the current finding, will hold of cardiology evaluation since goals of care needs to be readdressed and likely patient will b e comfort measures in setting of intracranial hemorrhage. Need to avoid antiplatelets and anticoagulation for now. Troponin did trend down. 9. Encephalopathy, acute on chronic, obtunded at baseline with likely worsening mental status with findings of acute intracranial hemorrhage. Patient likely not to be extubated bowl according to pulmonary. Now DNR with no escalation of care, discussion ongoing regarding timing of terminal extubation. 10. Hypertension, all medications on hold for now. 11. Dysphagia secondary to recent CVA, status post G-tube placement in August 2018. Currently getting free water, and tube feedings. Prophylaxis: Protonix for GI prophylaxis, SCDs for DVT prophylaxis Disposition: Patient currently in ICU, intubated, on insulin drip. Patient with extremely poor prognosis given additional findings of intracranial bleeding with already known severe encephalopathy and underlying previous aneurysmal bleed along with a recent large left MCA CVA. Patient currently also with additional organ dysfunction including respiratory failure, renal insufficiency. Current clinical condition is poor and again prognosis is extremely poor, patient now DNR, family open to terminal extubation, will have to discuss timing DNR, no escalation of care. Result Diagram: 10/05/18 0400 10/05/18 0400 Results 24hrs Laboratory Tests Test 10/04/18 12:05 10/04/18 13:51 10/04/18 14:59 10/04/18 15:56 Bedside Glucose 182 172 174 163 Test 10/04/18 16:59 10/04/18 18:00 10/04/18 18:53 10/04/18 20:07 Bedside Glucose 179 170 167 165 Test 10/04/18 22:32 10/04/18 23:55 10/05/18 01:55 10/05/18 04:00 Bedside Glucose 155 159 132 White Blood Count 7.3 # Red Blood Count 3.82 L Hemoglobin 11.4 L Hematocrit 36.5 L Mean Corpuscular 95.5 Volume Mean Corpuscular 29.8 Hemoglobin Mean Corpuscular 31.2 L Hemoglobin Concent Red Cell 11.9 Distribution Width Platelet Count 147 Mean Platelet Volume 12.2 H Immature 0.500 H Granulocytes % Neutrophils % 72.1 Lymphocytes % 18.1 Monocytes % 6.7 Eosinophils % 2.3 Basophils % 0.3 Nucleated Red Blood 0.0 Cells % Immature 0.040 H Granulocytes # Neutrophils # 5.3 Lymphocytes # 1.3 Monocytes # 0.5 Eosinophils # 0.2 Basophils # 0.0 Nucleated Red Blood 0.0 Cells # Sodium Level 152 H Potassium Level 3.4 L Chloride Level 118 H Carbon Dioxide Level 28 Anion Gap 6 Blood Urea Nitrogen 32 #H Creatinine 1.63 H Est Glomerular 43 L Filtrat Rate mL/min Glucose Level 156 Calcium Level 8.1 L Phosphorus Level 2.6 Magnesium Level 2.2 Test 10/05/18 04:44 10/05/18 05:49 10/05/18 08:11 10/05/18 10:23 Bedside Glucose 145 138 179 174 Subjective 24 Hr Interval Summary Free Text/Dictation Patient remains obtunded, on mechanical ventilation, unable to protect airway so far. Likely will not be extubated bowl. Patient now DNR and no escalation of care, awaiting family decision regarding comfort measures and possibly terminal extubation. Given current clinical status and extremely poor prognosis, patient likely to require inpatient hospice if family proceeds with terminal extubation. Exam/Review of Systems Vital Signs Vitals Vital Signs Date Temp Pulse Resp B/P (MAP) Pulse Ox O2 O2 Flow FiO2 Time Delivery Rate 10/05/18 85 08:00 10/05/18 98.2 16 127/87 100 Mechanical 07:00 (100) Ventilator 10/05/18 30 05:06 10/01/18 15.0 23:52 Intake and Output 10/04/18 10/04/18 10/05/18 1515:00 23:00 07:00 IntakeIntake Total 1567.0 ml 1546 ml 1443.5 ml OutputOutput Total 975 ml 980 ml 770 ml BalanceBalance 592.0 ml 566 ml 673.5 ml Exam Constitutional: other (Obtunded) Respiratory: diminished breath sounds (Bases bilaterally), other (On mechanical ventilation) Cardiovascular: irregular rhythm (Atrial fibrillation) Gastrointestinal: soft, non-tender, other (Status post G-tube, tolerating tube feedings.) Musculoskeletal: swelling (Mild anasarca) Extremities: normal pulses Neurological: other (Obtunded mostly unresponsive) Medications Medications Current Medications Acetaminophen (Tylenol Tab) 650 mg Q4H PRN PO pain/fever; Start 10/02/18 at 02:30 Ondansetron HCl (Zofran Inj) 4 mg Q4H PRN IV nausea; Start 10/02/18 at 02:30 Pantoprazole (Protonix Iv) 40 mg DAILY@0600 IV Last administered on 10/05/18at 05:50; Admin Dose 40 MG; Start 10/02/18 at 06:00 Diagnostic Test (Pha) (Accu-Chek) 1 ea Q1H XX Last administered on 10/05/18at 1 0:25; Admin Dose 1 EA; Start 10/02/18 at 03:00 Insulin Human Regular 100 unit/ Sodium Chloride 100 ml @ 0 mls/hr PER PROTOCOL IV Last administered on 10/05/18at 02:00; Admin Dose 1.5 MLS/HR; Start 10/02/18 at 03:00 Miscellaneous Information (* Miscellaneous Pharmacy Order) Treatment of Hypoglycemia: 1.BG 51... Per protocol XX ; Start 10/02/18 at 03:00 Dextrose (D50w Syringe) 25 ml Q15M PRN IV DECREASED GLUCOSE; Start 10/02/18 at 03:00 Dextrose (D50w Syringe) 50 ml Q15M PRN IV DECREASED GLUCOSE; Start 10/02/18 at 03:00 Levetiracetam 100 ml @ 400 mls/hr Q12 IVPB Last administered on 10/05/18at 08:31; Admin Dose 400 MLS/HR; Start 10/02/18 at 04:00 Piperacillin Sod/ Tazobactam Sod 50 ml @ 100 mls/hr Q8 IVPB Last administered on 10/05/18at 05:50; Admin Dose 100 MLS/HR; Start 10/02/18 at 03:30 Morphine Sulfate (morphine SULFATE (PF)) 2 mg Q2 PRN IV pain Last administered on 10/04/18at 11:32; Admin Dose 2 MG; Start 10/03/18 at 02:48 Potassium Chloride 10 meq/ Sodium Chloride 1,005 ml @ 80 mls/hr [id number] IV Last administered on 10/04/18at 21:00; Admin Dose 80 MLS/HR; Start 10/04/18 at 2 1:00 DALLAS BUSTAMANTE Oct 05, 2018 11:33
--- NOTE | 2018-10-05 11:58 | CONS ---
Date/Time of Note Date/Time of Note DATE: 10/05/18 TIME: 11:58 Assessment/Plan Assessment/Plan Assessment/Plan 1. acute kidney injury on CKD unknown baseline Cr due to ATN from septic shock + severe prerenal azotemia from DKA 2. Acute hyperkalemia due to RIVAS 3. Acute hypernatremia due to severe dehydration from Hyperglycemia hyperosmolar State 4. Acute respiratory failure possible due to Aspiration PNA + septic shock, intubated on ventilator 5. Septic shock 2/2 Aspiration PNA 6. Intracranial bleeding 7. H/o atrial fibrillation on Eliis unitl admission 8. H/o HTN 9. Acute on chronic encephalopathy 10. Elevated Troponin 11. Dysphagia secondary to CVA s/p G tube placement 12. Recent acute CVA and status post aneurysm and hematoma evacuation in 2016, patient on Keppra for seizure prophylaxis. Again baseline significant encephalopathy and mostly bedbound for the past 2 years with recent worsening few weeks ago. Plan: BUN/Cr 32/1.63 Na improved to 152, K 3.4- 1/2 NS with KCl 10mEQ at 80 cc/hr , K replacement as ordered Renal US has been done which is unremarkable except left kidney cyst ventilator care as per pulmonary Urine output 2.6 liter in last 24 hr IV abx to cover him for HCAP- Renally dose all abx and monitor electrolytes Not a Hemodialysis candidate due to ICH, poor prognosis and comorbities will follow up Result Diagram: 10/05/18 0400 10/05/18 0400 Results 24hrs Laboratory Tests Test 10/04/18 12:05 10/04/18 13:51 10/04/18 14:59 10/04/18 15:56 Bedside Glucose 182 172 174 163 Test 10/04/18 16:59 10/04/18 18:00 10/04/18 18:53 10/04/18 20:07 Bedside Glucose 179 170 167 165 Test 10/04/18 22:32 10/04/18 23:55 10/05/18 01:55 10/05/18 04:00 Bedside Glucose 155 159 132 White Blood Count 7.3 # Red Blood Count 3.82 L Hemoglobin 11.4 L Hematocrit 36.5 L Mean Corpuscular 95.5 Volume Mean Corpuscular 29.8 Hemoglobin Mean Corpuscular 31.2 L Hemoglobin Concent Red Cell 11.9 Distribution Width Platelet Count 147 Mean Platelet Volume 12.2 H Immature 0.500 H Granulocytes % Neutrophils % 72.1 Lymphocytes % 18.1 Monocytes % 6.7 Eosinophils % 2.3 Basophils % 0.3 Nucleated Red Blood 0.0 Cells % Immature 0.040 H Granulocytes # Neutrophils # 5.3 Lymphocytes # 1.3 Monocytes # 0.5 Eosinophils # 0.2 Basophils # 0.0 Nucleated Red Blood 0.0 Cells # Sodium Level 152 H Potassium Level 3.4 L Chloride Level 118 H Carbon Dioxide Level 28 Anion Gap 6 Blood Urea Nitrogen 32 #H Creatinine 1.63 H Est Glomerular 43 L Filtrat Rate mL/min Glucose Level 156 Calcium Level 8.1 L Phosphorus Level 2.6 Magnesium Level 2.2 Test 10/05/18 04:44 10/05/18 05:49 10/05/18 08:11 10/05/18 10:23 Bedside Glucose 145 138 179 174 Consultation Date/Type/Reason Admit Date/Time Oct 02, 2018 at 01:47 Initial Consult Date 10/02/18 Type of Consult NEPHROLOGY Requesting Provider: CANDELARIA ARROYO MD Exam/Review of Systems Vital Signs Vitals Vital Signs Date Temp Pulse Resp B/P (MAP) Pulse Ox O2 O2 Flow FiO2 Time Delivery Rate 10/05/18 86 16 141/90 100 Mechanical 11:00 (107) Ventilator 10/05/18 98.2 07:00 10/05/18 30 05:06 10/01/18 15.0 23:52 Intake and Output 10/04/18 10/04/18 10/05/18 1515:00 23:00 07:00 IntakeIntake Total 1567.0 ml 1546 ml 1443.5 ml OutputOutput Total 975 ml 980 ml 770 ml BalanceBalance 592.0 ml 566 ml 673.5 ml Exam Constitutional: non-verbal, distress (moderate distress, ) ENMT: intubated (on ventilator) Neck: supple Respiratory: congested cough, crackles/rales, diminished breath sounds Cardiovascular: edema, irregular rhythm Gastrointestinal: soft, non-tender, other (G tube in place ) Musculoskeletal: swelling Neurological: other (on Ventilator, unresponsive ) Medications Medications Current Medications Acetaminophen (Tylenol Tab) 650 mg Q4H PRN PO pain/fever; Start 10/02/18 at 02:30 Ondansetron HCl (Zofran Inj) 4 mg Q4H PRN IV nausea; Start 10/02/18 at 02:30 Pantoprazole (Protonix Iv) 40 mg DAILY@0600 IV Last administered on 10/05/18at 05:50; Admin Dose 40 MG; Start 10/02/18 at 06:00 Diagnostic Test (Pha) (Accu-Chek) 1 ea Q1H XX Last administered on 10/05/18at 10:25; Admin Dose 1 EA; Start 10/02/18 at 03:00 Insulin Human Regular 100 unit/ Sodium Chloride 100 ml @ 0 mls/hr PER PROTOCOL IV Last administered on 10/05/18at 02:00; Admin Dose 1.5 MLS/HR; Start 10/02/18 at 03:00 Miscellaneous Information (* Miscellaneous Pharmacy Order) Treatment of Hypogl ycemia: 1.BG 51... Per protocol XX ; Start 10/02/18 at 03:00 Dextrose (D50w Syringe) 25 ml Q15M PRN IV DECREASED GLUCOSE; Start 10/02/18 at 03:00 Dextrose (D50w Syringe) 50 ml Q15M PRN IV DECREASED GLUCOSE; Start 10/02/18 at 03:00 Levetiracetam 100 ml @ 400 mls/hr Q12 IVPB Last administered on 10/05/18at 08:31; Admin Dose 400 MLS/HR; Start 10/02/18 at 04:00 Piperacillin Sod/ Tazobactam Sod 50 ml @ 100 mls/hr Q8 IVPB Last administered on 10/05/18at 05:50; Admin Dose 100 MLS/HR; Start 10/02/18 at 03:30 Morphine Sulfate (morphine SULFATE (PF)) 2 mg Q2 PRN IV pain Last administered on 10/04/18at 11:32; Admin Dose 2 MG; Start 10/03/18 at 02:48 Potassium Chloride 10 meq/ Sodium Chloride 1,005 ml @ 80 mls/hr [id number] IV Last administered on 10/04/18at 21:00; Admin Dose 80 MLS/HR; Start 10/04/18 at 21:00 KAMILA FAGAN MD Oct 05, 2018 11:58
[2018-10-05] MEDS: POTASSIUM CHLORIDE 10 MEQ in SOD CHLORIDE 0.45% 1,000 ML IV SCH (13:17)
[2018-10-05] MEDS: morphine SULFATE/PF (2 MG/2 ML) SYG IV PRN ×2 (14:33→20:39)
[2018-10-06] VITALS (36 sets, daily range): BP systolic 122–159; BP diastolic 75–103; PULSE 72–113; RESP 16–27
[2018-10-06] MEDS: ACCU-CHEK XX SCH ×12 (01:00→23:00)
[2018-10-06] MEDS: POTASSIUM CHLORIDE 10 MEQ in SOD CHLORIDE 0.45% 1,000 ML IV SCH ×3 (03:56→17:48)
[2018-10-06] MEDS: INSULIN HUMAN REGULAR 100 UNIT in SOD CHLORIDE 0.9% 99 ML IV SCH (03:58)
[2018-10-06] MEDS: PIPER-TAZO 2.25 GM (PMX) 50 ML IVPB SCH ×2 (05:07→13:32)
[2018-10-06] MEDS: PANTOPRAZOLE 40 MG INJ IV SCH (05:07)
[2018-10-06] MEDS: BALSAM PERU/CASTOR OIL 60 GM TUBE TOP SCH ×2 (09:17→20:54)
--- NOTE | 2018-10-06 09:53 | PN ---
Date/Time of Note Date/Time of Note DATE: 10/06/18 TIME: 09:47 Assessment/Plan VTE Prophylaxis Risk score (from Ns)>0 risk: 14 SCD applied (from Ns): Yes Pharmacological prophylaxis: NA/contraindicated Pharm contraindication: bleeding Lines/Catheters IV Catheter Type (from Nrsg): Central Line Central line still needed: Yes (IV access) Urinary Cath still in place: Yes Reason Cath still needed: terminal illness/intractable pain Assessment/Plan Assessment/Plan 68-year-old male with: 1. S/p septic shock, source likely aspiration pneumonia, patient currently on coverage for HCAP versus aspiration pneumonia with cefepime. Continue IV fluids, respiratory support with mechanical ventilation, off pressors. Resolved leukocytosis. Blood cultures and urine culture NGTD. DNR now and no escalation of care. 2. Aspiration pneumonia, likely given that the patient is obtunded at baseline and went into respiratory failure by the time he presented in the hospital in setting of tachypnea and respiratory insufficiency. On cefepime. Follow-up chest x-ray 10/03 stable with findings of infiltrate at bases. 3. Acute respiratory failure in setting of septic shock and probable aspiration pneumonia. Patient on mechanical ventilation. Lots of secretions. No sedation needed given the fact that he is obtunded at baseline. Pulmonary following. FiO2 30%, discussed with pulmonary, with new findings of intracranial hemorrhage and significant encephalopathy, unlikely to be able to extubate patient. Awaiting family decision regarding terminal extubation, will keep discussion with family, likely patient will need inpatient hospice post terminal extubation. He is now DNR with no escalation of care after family meeting yesterday. 4. Acute renal failure, unclear if his baseline renal insufficiency or CKD, patient definitely significantly dehydrated and hypovolemic. On IV fluids currently, appreciate nephrology recommendations. Renal function keeps improving, blood sugar now controlled with insulin drip. Hypernatremia improving Continue insulin drip and IV fluids along with free water. Monitor urine output, electrolytes and renal function. Replete potassium. 5. Acute intracranial hemorrhage, MRI MRA showing and changed intracranial hemorrhage compared to CAT scan done yesterday earlier. Appreciate recommendations from neurosurgery, no intervention at this time. Patient is also found to have a large left MCA territory ischemic stroke which is chronic and was diagnosed back in August 2018 6. Diabetes mellitus, status post hyperosmolar hyperglycemic crisis, no blood sugar controlled, to remain on insulin drip for now. A1c 9.8. 7. Chronic atrial fibrillation, currently in atrial fibrillation with slightly better heart rate control. Given findings of acute intracranial bleeding, all anticoagulation discontinued. Episode of nonsustained V. tach 10/04, resolved, electrolytes potassium today. 8. Elevated troponin, in setting of acute renal failure, septic shock and A. fib with RVR. 2D echocardiogram ordered, given the current finding, will hold of cardiology evaluation since goals of care needs to be readdressed and likely patient will be comfort measures in setting of intracranial hemorrhage. Need to avoid antiplatelets and anticoagulation for now. Troponin did trend down. 9. Encephalopathy, acute on chronic, obtunded at baseline with likely worsening mental status with findings of acute intracranial hemorrhage. Patient likely not to be extubated bowl according to pulmonary. Now DNR with no escalation of care, discussion ongoing regarding timing of terminal extubation. 10. Hypertension, all medications on hold for now. 11. Dysphagia secondary to recent CVA, status post G-tube placement in August 2018. Currently getting free water, and tube feedings. Prophylaxis: Protonix for GI prophylaxis, SCDs for DVT prophylaxis Disposition: Patient currently in ICU, intubated, on insulin drip. Patient with extremely poor prognosis given additional findings of intracranial bleeding with already known severe encephalopathy and underlying previous aneurysmal bleed along with a recent large left MCA CVA. Patient currently also with additional organ dysfunction including respiratory failure, renal insufficiency. Current clinical condition is poor and again prognosis is extremely poor, patient now DNR, family open to terminal extubation, will have to discuss timing DNR, no escalation of care. Result Diagram: 10/06/18 0428 10/06/18 0428 Results 24hrs Laboratory Tests Test 10/05/18 10:23 10/05/18 12:49 10/05/18 14:36 10/05/18 18:09 Bedside Glucose 174 165 161 161 Test 10/05/18 20:07 10/05/18 22:08 10/06/18 00:00 10/06/18 02:11 Bedside Glucose 154 152 131 132 Test 10/06/18 03:55 10/06/18 04:28 10/06/18 06:35 10/06/18 09:07 Bedside Glucose 131 116 154 White Blood Count 7.0 Red Blood Count 3.60 L Hemoglobin 10.7 L Hematocrit 34.0 L Mean Corpuscular 94.4 Volume Mean Corpuscular 29.7 Hemoglobin Mean Corpuscular 31.5 L Hemoglobin Concent Red Cell 11.8 Distribution Width Platelet Count 138 L Mean Platelet Volume 12.2 H Immature 0.400 Granulocytes % Neutrophils % 70.1 Lymphocytes % 17.3 Monocytes % 7.9 Eosinophils % 4.2 Basophils % 0.1 Nucleated Red Blood 0.0 Cells % Immature 0.030 Granulocytes # Neutrophils # 4.9 Lymphocytes # 1.2 Monocytes # 0.6 Eosinophils # 0.3 Basophils # 0.0 Nucleated Red Blood 0.0 Cells # Sodium Level 148 H Potassium Level 3.3 L Chloride Level 117 H Carbon Dioxide Level 27 Anion Gap 4 L Blood Urea Nitrogen 25 H Creatinine 1.49 H Est Glomerular 47 L Filtrat Rate mL/min Glucose Level 138 Calcium Level 8.2 L Phosphorus Level 2.9 Magnesium Level 2.0 Subjective 24 Hr Interval Summary Free Text/Dictation Patient remains obtunded, not on sedation since admission however intubated, biting the tube with suction, lots of secretions, likely not to be weaned off the vent but family is considering the terminal extubation. Family did not show yesterday for meeting in the morning. Will contact again today. Exam/Review of Systems Vital Signs Vitals Vital Signs Date Temp Pulse Resp B/P (MAP) Pulse Ox O2 O2 Flow FiO2 Time Delivery Rate 10/06/18 80 16 141/93 100 Mechanical 06:00 (109) Ventilator 10/06/18 30 05:18 10/06/18 98.3 04:00 Intake and Output 10/05/18 10/05/18 10/06/18 1515:00 23:00 07:00 IntakeIntake Total 1164 ml 1566 ml 1251.0 ml OutputOutput Total 900 ml 675 ml 690 ml BalanceBalance 264 ml 891 ml 561.0 ml Exam Constitutional: other (Obtunded) Respiratory: diminished breath sounds (Bases otherwise clear to auscultation upper lobes), other (On mechanical ventilation) Cardiovascular: regular rate and rhythm, nl pulses Gastrointestinal: soft, non-tender Musculoskeletal: nl extremities to inspection, swelling (Trace to mild anasarca noted) Extremities: normal pulses, other (No clubbing or cyanosis) Neurological: lethargic, other (Obtunded not purposefully responsive but does bite the tube while being suctioned) Medications Medications Current Medications Acetaminophen (Tylenol Tab) 650 mg Q4H PRN PO pain/fever; Start 10/02/18 at 02:30 Ondansetron HCl (Zofran Inj) 4 mg Q4H PRN IV nausea; Start 10/02/18 at 02:30 Pantoprazole (Protonix Iv) 40 mg DAILY@0600 IV Last administered on 10/06/18at 05:07; Admin Dose 40 MG; Start 10/02/18 at 06:00 Insulin Human Regular 100 unit/ Sodium Chloride 100 ml @ 0 mls/hr PER PROTOCOL IV Last administered on 10/06/18 03:58; Admin Dose 1.5 MLS/HR; Start 10/02/18 at 03:00 Miscellaneous Information (* Miscellaneous Pharmacy Order) Treatment of Hy poglycemia: 1.BG 51... Per protocol XX ; Start 10/02/18 at 03:00 Dextrose (D50w Syringe) 25 ml Q15M PRN IV DECREASED GLUCOSE; Start 10/02/18 at 03:00 Dextrose (D50w Syringe) 50 ml Q15M PRN IV DECREASED GLUCOSE; Start 10/02/18 at 03:00 Levetiracetam 100 ml @ 400 mls/hr Q12 IVPB Last administered on 10/05/18at 20:17; Admin Dose 400 MLS/HR; Start 10/02/18 at 04:00 Piperacillin Sod/ Tazobactam Sod 50 ml @ 100 mls/hr Q8 IVPB Last administered on 10/06/18at 05:07; Admin Dose 100 MLS/HR; Start 10/02/18 at 03:30 Morphine Sulfate (morphine SULFATE (PF)) 2 mg Q2 PRN IV pain Last administered on 10/05/18at 20:39; Admin Dose 2 MG; Start 10/03/18 at 02:48 Potassium Chloride 10 meq/ Sodium Chloride 1,005 ml @ 80 mls/hr [id number] IV Last administered on 10/06/18at 03:56; Admin Dose 80 MLS/HR; Start 10/04/18 at 21:00 Diagnostic Test (Pha) (Accu-Chek) 1 ea Q2 XX Last administered on 10/06/18at 09:13; Admin Dose 1 EA; Start 10/05/18 at 20:00 DALLAS BUSTAMANTE Oct 06, 2018 09:53
[2018-10-06] MEDS ORDERED: POTASSIUM CHLORIDE 50 ML IVPB ONE (10:00)
--- NOTE | 2018-10-06 10:55 | CONS ---
Date/Time of Note Date/Time of Note DATE: 10/06/18 TIME: 10:41 Consult Date/Type/Reason Admit Date/Time Oct 02, 2018 at 01:47 Initial Consult Date 10/02/18 Type of Consultation: Pulm/CCM Requesting Provider: CANDELARIA ARROYO MD Subjective No events. Remains obtunded on the vent. Objective Vital Signs Date Temp Pulse Resp B/P (MAP) Pulse Ox O2 O2 Flow FiO2 Time Delivery Rate 10/06/18 80 16 141/93 100 Mechanical 06:00 (109) Ventilator 10/06/18 30 05:18 10/06/18 98.3 04:00 Intake and Output 10/05/18 10/05/18 10/06/18 1515:00 23:00 07:00 IntakeIntake Total 1164 ml 1566 ml 1251.0 ml OutputOutput Total 900 ml 675 ml 690 ml BalanceBalance 264 ml 891 ml 561.0 ml Exam HEENT: Neck supple; no JVD; no LAD; + ET tube CVS: RRR, S1 and S2 CHEST: Clear ABD: Soft, NT, + BS EXT: No c/c; + edema NEURO: Obtunded on mechanical vent; bites on ET tube during suctioning Results/Medications Result Diagram: 10/06/18 0428 10/06/18 0428 Results 24 hrs Laboratory Tests Test 10/05/18 12:49 10/05/18 14:36 10/05/18 18:09 10/05/18 20:07 Bedside Glucose 165 161 161 154 Test 10/05/18 22:08 10/06/18 00:00 10/06/18 02:11 10/06/18 03:55 Bedside Glucose 152 131 132 131 Test 10/06/18 04:28 10/06/18 06:35 10/06/18 09:07 White Blood Count 7.0 Red Blood Count 3.60 L Hemoglobin 10.7 L Hematocrit 34.0 L Mean Corpuscular 94.4 Volume Mean Corpuscular 29.7 Hemoglobin Mean Corpuscular 31.5 L Hemoglobin Concent Red Cell 11.8 Distribution Width Platelet Count 138 L Mean Platelet Volume 12.2 H Immature 0.400 Granulocytes % Neutrophils % 70.1 Lymphocytes % 17.3 Monocytes % 7.9 Eosinophils % 4.2 Basophils % 0.1 Nucleated Red Blood 0.0 Cells % Immature 0.030 Granulocytes # Neutrophils # 4.9 Lymphocytes # 1.2 Monocytes # 0.6 Eosinophils # 0.3 Basophils # 0.0 Nucleated Red Blood 0.0 Cells # Sodium Level 148 H Potassium Level 3.3 L Chloride Level 117 H Carbon Dioxide Level 27 Anion Gap 4 L Blood Urea Nitrogen 25 H Creatinine 1.49 H Est Glomerular 47 L Filtrat Rate mL/min Glucose Level 138 Calcium Level 8.2 L Phosphorus Level 2.9 Magnesium Level 2.0 Bedside Glucose 116 154 Medications Current Medications Acetaminophen (Tylenol Tab) 650 mg Q4H PRN PO pain/fever; Start 10/02/18 at 02:30 Ondansetron HCl (Zofran Inj) 4 mg Q4H PRN IV nausea; Start 10/02/18 at 02:30 Pantoprazole (Protonix Iv) 40 mg DAILY@0600 IV Last administered on 10/06/18at 05:07; Admin Dose 40 MG; Start 10/02/18 at 06:00 Insulin Human Regular 100 unit/ Sodium Chloride 100 ml @ 0 mls/hr PER PROTOCOL I V Last administered on 10/06/18at 03:58; Admin Dose 1.5 MLS/HR; Start 10/02/18 at 03:00 Miscellaneous Information (* Miscellaneous Pharmacy Order) Treatment of Hypoglycemia: 1.BG 51... Per protocol XX ; Start 10/02/18 at 03:00 Dextrose (D50w Syringe) 25 ml Q15M PRN IV DECREASED GLUCOSE; Start 10/02/18 at 03:00 Dextrose (D50w Syringe) 50 ml Q15M PRN IV DECREASED GLUCOSE; Start 10/02/18 at 03:00 Levetiracetam 100 ml @ 400 mls/hr Q12 IVPB Last administered on 10/05/18at 20:17; Admin Dose 400 MLS/HR; Start 10/02/18 at 04:00 Piperacillin Sod/ Tazobactam Sod 50 ml @ 100 mls/hr Q8 IVPB Last administered on 10/06/18at 05:07; Admin Dose 100 MLS/HR; Start 10/02/18 at 03:30 Morphine Sulfate (morphine SULFATE (PF)) 2 mg Q2 PRN IV pain Last administered on 10/05/18at 20:39; Admin Dose 2 MG; Start 10/03/18 at 02:48 Potassium Chloride 10 meq/ Sodium Chloride 1,005 ml @ 80 mls/hr [id number] IV Last administered on 10/06/18at 03:56; Admin Dose 80 MLS/HR; Start 10/04/18 at 21:00 Diagnostic Test (Pha) (Accu-Chek) 1 ea Q2 XX Last administered on 10/06/18at 09:13; Admin Dose 1 EA; Start 10/05/18 at 20:00 Potassium Chloride 50 ml @ 25 mls/hr ONCE ONCE IVPB ; Start 10/06/18 at 10:00; Stop 10/06/18 at 11:59 Assessment/Plan Additional Assessment/Plan IMP: 1. Septic Shock 2. Respiratory Failure/Vent Dependence--2/2 encephalopathy 3. Encephalopathy 4. ARF 5. ICH 6. Afib 7. FEN-elevated Na+ and low K+ RECS: 1. Vent support 2. Consider bronch bite block given patient bitting during suctioning 3. Await family decision/meeting regarding transition to comfort care 4. Continue keppra 5. Follow renal function; am labs Case d/w RN 40 min cc time WILFREDO STOUT MD Oct 06, 2018 10:55
[2018-10-06] MEDS: LEVETIRACETAM 1000 MG (PMX) 100 ML IVPB SCH ×2 (11:24→20:53)
--- NOTE | 2018-10-06 21:02 | CONS ---
Date/Time of Note Date/Time of Note DATE: 10/06/18 TIME: 21:02 Assessment/Plan Assessment/Plan Assessment/Plan 1. acute kidney injury on CKD unknown baseline Cr due to ATN from septic shock + severe prerenal azotemia from DKA 2. Acute hyperkalemia due to RIVAS 3. Acute hypernatremia due to severe dehydration from Hyperglycemia hyperosmolar State 4. Acute respiratory failure possible due to Aspiration PNA + septic shock, intubated on ventilator 5. Septic shock 2/2 Aspiration PNA 6. Intracranial bleeding 7. H/o atrial fibrillation on Eliquis unitl admission 8. H/o HTN 9. Acute on chronic encephalopathy 10. Elevated Troponin 11. Dysphagia secondary to CVA s/p G tube placement 12. Recent acute CVA and status post aneurysm and hematoma evacuation in 2016, patient on Keppra for seizure prophylaxis. Again baseline significant encephalopathy and mostly bedbound for the past 2 years with recent worsening few weeks ago. Plan: BUN/Cr 25/1.49- slowly improving, Na improved to 148, K 3.3- 1/2 NS with KCl 10mEQ at 80 cc/hr ,K replacement as per Protocol Renal US has been done which is unremarkable except left kidney cyst ventilator care as per pulmonary Urine output 2.6 liter in last 24 hr IV abx to cover him for HCAP- Renally dose all abx and monitor electrolytes Not a Hemodialysis candidate due to ICH, poor prognosis and comorbities will follow up Result Diagram: 10/06/18 0428 10/06/18 0428 Results 24hrs Laboratory Tests Test 10/05/18 22:08 10/06/18 00:00 10/06/18 02:11 10/06/18 03:55 Bedside Glucose 152 131 132 131 Test 10/06/18 04:28 10/06/18 06:35 10/06/18 09:07 10/06/18 11:23 White Blood Count 7.0 Red Blood Count 3.60 L Hemoglobin 10.7 L Hematocrit 34.0 L Mean Corpuscular 94.4 Volume Mean Corpuscular 29.7 Hemoglobin Mean Corpuscular 31.5 L Hemoglobin Concent Red Cell 11.8 Distribution Width Platelet Count 138 L Mean Platelet Volume 12.2 H Immature 0.400 Granulocytes % Neutrophils % 70.1 Lymphocytes % 17.3 Monocytes % 7.9 Eosinophils % 4.2 Basophils % 0.1 Nucleated Red Blood 0.0 Cells % Immature 0.030 Granulocytes # Neutrophils # 4.9 Lymphocytes # 1.2 Monocytes # 0.6 Eosinophils # 0.3 Basophils # 0.0 Nucleated Red Blood 0.0 Cells # Sodium Level 148 H Potassium Level 3.3 L Chloride Level 117 H Carbon Dioxide Level 27 Anion Gap 4 L Blood Urea Nitrogen 25 H Creatinine 1.49 H Est Glomerular 47 L Filtrat Rate mL/min Glucose Level 138 Calcium Level 8.2 L Phosphorus Level 2.9 Magnesium Level 2.0 Bedside Glucose 116 154 129 Test 10/06/18 13:38 10/06/18 15:38 10/06/18 17:29 10/06/18 18:46 Bedside Glucose 130 126 115 137 Test 10/06/18 20:55 Bedside Glucose 115 Consultation Date/Type/Reason Admit Date/Time Oct 02, 2018 at 01:47 Initial Consult Date 10/02/18 Type of Consult NEPHROLOGY Requesting Provider: CANDELARIA ARROYO MD 24 HR Interval Summary Free Text/Dictation remains intubated, unrepsonsive off sedation, BUN/Cr stable, adequate urine output Exam/Review of Systems Vital Signs Vitals Vital Signs Date Temp Pulse Resp B/P (MAP) Pulse Ox O2 O2 Flow FiO2 Time Delivery Rate 10/06/18 87 27 100 30 19:32 10/06/18 151/99 Mechanical 18:00 (116) Ventilator 10/06/18 98.8 16:00 Intake and Output 10/05/18 10/05/18 10/06/18 1515:00 23:00 07:00 IntakeIntake Total 1164 ml 1566 ml 1362.5 ml OutputOutput Total 900 ml 675 ml 765 ml BalanceBalance 264 ml 891 ml 597.5 ml Exam Constitutional: non-verbal ENMT: intubated Respiratory: congested cough, crackles/rales, diminished breath sounds Cardiovascular: regular rate and rhythm, nl pulses Gastrointestinal: soft, other (NT, ND, BS+) Musculoskeletal: swelling (1-2+ pitting edema) Extremities: normal pulses Neurological: unresponsive, other (on ventilator ) Medications Medications Current Medications Acetaminophen (Tylenol Tab) 650 mg Q4H PRN PO pain/fever; Start 10/02/18 at 02: 30 Ondansetron HCl (Zofran Inj) 4 mg Q4H PRN IV nausea; Start 10/02/18 at 02:30 Pantoprazole (Protonix Iv) 40 mg DAILY@0600 IV Last administered on 10/06/18at 05:07; Admin Dose 40 MG; Start 10/02/18 at 06:00 Insulin Human Regular 100 unit/ Sodium Chloride 100 ml @ 0 mls/hr PER PROTOCOL IV Last administered on 10/06/18at 03:58; Admin Dose 1.5 MLS/HR; Start 10/02/18 at 03:00 Miscellaneous Information (* Miscellaneous Pharmacy Order) Treatment of Hypoglycemia: 1.BG 51... Per protocol XX ; Start 10/02/18 at 03:00 Dextrose (D50w Syringe) 25 ml Q15M PRN IV DECREASED GLUCOSE; Start 10/02/18 at 03:00 Dextrose (D50w Syringe) 50 ml Q15M PRN IV DECREASED GLUCOSE; Start 10/02/18 at 03:00 Levetiracetam 100 ml @ 400 mls/hr Q12 IVPB Last administered on 10/06/18at 20:53; Admin Dose 400 MLS/HR; Start 10/02/18 at 04:00 Morphine Sulfate (morphine SULFATE (PF)) 2 mg Q2 PRN IV pain Last administered on 10/05/18at 20:39; Admin Dose 2 MG; Start 10/03/18 at 02:48 Potassium Chloride 10 meq/ Sodium Chloride 1,005 ml @ 80 mls/hr [id number] IV Last administered on 10/06/18at 17:48; Admin Dose 80 MLS/HR; Start 10/04/18 at 21:00 Diagnostic Test (Pha) (Accu-Chek) 1 ea Q2 XX Last administered on 10/06/18at 20: 55; Admin Dose 1 EA; Start 10/05/18 at 20:00 Piperacillin Sod/ Tazobactam Sod 100 ml @ 200 mls/hr Q8 IVPB ; Start 10/06/18 at 22:00 KAMILA FAGAN MD Oct 06, 2018 21:02
[2018-10-06] MEDS: PIPER-TAZO 3.375 GM IV (PMX) 100 ML IVPB SCH (22:13)
[2018-10-07] VITALS (35 sets, daily range): BP systolic 90–160; BP diastolic 68–105; PULSE 43–95; RESP 16–27
[2018-10-07] MEDS: ACCU-CHEK XX SCH ×7 (01:05→12:53)
[2018-10-07] MEDS: INSULIN HUMAN REGULAR 100 UNIT in SOD CHLORIDE 0.9% 99 ML IV SCH (05:12)
[2018-10-07] MEDS: PIPER-TAZO 3.375 GM IV (PMX) 100 ML IVPB SCH ×3 (05:19→20:20)
[2018-10-07] MEDS: PANTOPRAZOLE 40 MG INJ IV SCH (05:19)
[2018-10-07] MEDS: POTASSIUM CHLORIDE 10 MEQ in SOD CHLORIDE 0.45% 1,000 ML IV SCH (06:09)
[2018-10-07] MEDS: BALSAM PERU/CASTOR OIL 60 GM TUBE TOP SCH ×2 (08:54→20:20)
[2018-10-07] MEDS: LEVETIRACETAM 1000 MG (PMX) 100 ML IVPB SCH ×2 (08:54→20:17)
[2018-10-07] MEDS: POTASSIUM CHLORIDE 50 ML IVPB SCH ×2 (09:31→11:12)
--- NOTE | 2018-10-07 10:20 | PN ---
Date/Time of Note Date/Time of Note DATE: 10/07/18 TIME: 09:59 Assessment/Plan VTE Prophylaxis Risk score (from Ns)>0 risk: 11 SCD applied (from Ns): Yes Pharmacological prophylaxis: NA/contraindicated Pharm contraindication: bleeding (Intracranial) Lines[facility] Central line still needed: Yes (IV access) Urinary Cath still in place: Yes Reason Cath still needed: terminal illness/intractable pain Assessment/Plan Assessment/Plan 68-year-old male with: 1. S/p septic shock, source likely aspiration pneumonia, patient currently on coverage for HCAP versus aspiration pneumonia with cefepime. Continue IV fluids, respiratory support with mechanical ventilation, off pr essors. Resolved leukocytosis. Blood cultures and urine culture NGTD. DNR now and no escalation of care. 2. Aspiration pneumonia, likely given that the patient is obtunded at baseline and went into respiratory failure by the time he presented in the hospital in setting of tachypnea and respiratory insufficiency. On cefepime, to be completed by 10/12. Follow-up chest x-ray this a.m. improved, trace infiltrate/atelectasis. 3. Acute respiratory failure in setting of septic shock and probable aspiration pneumonia. Patient on mechanical ventilation. Lots of secretions. No sedation needed given the fact that he is obtunded at baseline. Pulmonary following. FiO2 30%, discussed with pulmonary, with new findings of intracranial hemorrhage and significant encephalopathy, unlikely to be able to extubate patient. Awaiting family decision regarding terminal extubation, ? Monday 10/09 ac cording to their last meeting with hospice agency. I have attempted again to call patient's daughter, Myline, today but she is not picking up. We will keep trying. However Likely patient will need inpatient hospice post terminal extubation. He is now DNR with no escalation of care after family meeting yesterday. 4. Acute renal failure, unclear if his baseline renal insufficiency or CKD, patient definitely significantly dehydrated and hypovolemic. On IV fluids currently, appreciate nephrology recommendations. Renal function keeps improving, blood sugar now controlled with insulin drip. Hypernatremia improving We will D/C IV fluids, changing off insulin drip to subcu insulin. Continue free water with tube feedings. Replete electrolytes. 5. Acute intracranial hemorrhage, MRI MRA showing and changed intracranial hemorrhage compared to CAT scan done yesterday earlier. Appreciate recommendations from neurosurgery, no intervention at this time. Patient is also found to have a large left MCA territory ischemic stroke which is chronic and was diagnosed back in August 2018 6. Diabetes mellitus, status post hyperosmolar hyperglycemic crisis, now blood sugar controlled. Will transition to subcutaneous insulin, based on 24-hour requirement, patient getting approximately 36 unit of insulin per insulin drip, will administer Lantus 24 units every morning subcutaneously along with sliding scale insulin. May titrate Lantus up as needed, patient apparently was on 35 units nightly as outpatient. A1c 9.8. 7. Chronic atrial fibrillation, currently in atrial fibrillation with slightly better heart rate control. Given findings of acute intracranial bleeding, all anticoagulation discontinued. Episode of nonsustained V. tach 10/04, resolved, replete potassium today. 8. Elevated troponin, in setting of acute renal failure, septic shock and A. fib with RVR. 2D echocardiogram with EF 50%, given the current finding, will hold of cardiology evaluation since goals of care needs to be readdressed and likely patient will be comfort measures in setting of intracranial hemorrhage. Need to avoid antiplatelets and anticoagulation for now. Troponin did trend down. 9. Encephalopathy, acute on chronic, obtunded at baseline with likely worsening mental status with findings of acute intracranial hemorrhage. Patient likely not to be extubated bowl according to pulmonary. Now DNR with no escalation of care, discussion ongoing regarding timing of terminal extubation, ? Monday 10/09. 10. Hypertension, all medications on hold for now. 11. Dysphagia secondary to recent CVA, status post G-tube placement in August 2018. Currently getting free water, and tube feedings. Prophylaxis: Protonix for GI prophylaxis, SCDs for DVT prophylaxis Disposition: Patient currently in ICU, intubated. Patient with extremely poor prognosis given additional findings of intracranial bleeding with already known severe encephalopathy and underlying previous aneurysmal bleed along with a recent large left MCA CVA. Patient currently also with additional organ dysfunction including respiratory failure, renal insufficiency. Current clinical condition is poor and again prognosis is extremely poor, patient now DNR, family open to terminal extubation, will have to discuss timing DNR, no escalation of care. Result Diagram: 10/07/18 0516 10/07/18 0516 Results 24hrs Laboratory Tests Test 10/06/18 11:23 10/06/18 13:38 10/06/18 15:38 10/06/18 17:29 Bedside Glucose 129 130 126 115 Test 10/06/18 18:46 10/06/18 20:55 10/06/18 23:08 10/07/18 01:05 Bedside Glucose 137 115 124 106 Test 10/07/18 03:07 10/07/18 05:00 10/07/18 05:11 10/07/18 05:16 Bedside Glucose 133 135 Blood Gas Blood arterial Specimen Source Arterial Blood 10/07/2018 4:45:3 Date Drawn 6 AM Arterial Blood pH 7.456 H (Temp corrected) Arterial Blood 35.0 pCO2 (Temp correct) Arterial Blood 87.0 pO2 (Temp corrected) Arterial Blood 24.1 HCO3 Arterial Blood 0.7 Base Excess Arterial Blood 96.6 Oxygen Saturation Justice Test ACCEPTAB Arterial Blood Left Radial Gas Puncture Site Arterial 0.7 Blood Carboxyhemo globin Arterial Blood 0.3 Methemoglobin Blood Gas A-a O2 85.8 H Differential Oxyhemoglobin 95.6 Percent Blood Gas 37.0 Temperature Blood Gas 16.0 Respiration Rate Blood Gas Actual 18 Respiration Rate Blood Gas VENT - AC Modality FiO2 30.0 Blood Gas Tidal 500.0 Volume Blood Gas Low 5.0 PEEP Setting Blood Gas 30.0 Inspiratory Pressure Blood Gas [facility] Notified Whom Blood Gas 10/07/2018 4:52:5 Notified Time 6 AM White Blood Count 7.5 Red Blood Count 3.74 L Hemoglobin 11.0 L Hematocrit 34.5 L Mean Corpuscular 92.2 Volume Mean Corpuscular 29.4 Hemoglobin Mean Corpuscular 31.9 L Hemoglobin Concen t Red Cell 11.7 Distribution Width Platelet Count 159 Mean Platelet 11.5 H Volume Immature 0.500 H Granulocytes % Neutrophils % 69.3 Lymphocytes % 17.5 Monocytes % 8.6 Eosinophils % 4.0 Basophils % 0.1 Nucleated Red 0.0 Blood Cells % Immature 0.040 H Granulocytes # Neutrophils # 5.2 Lymphocytes # 1.3 Monocytes # 0.6 Eosinophils # 0.3 Basophils # 0.0 Nucleated Red 0.0 Blood Cells # Sodium Level 145 H Potassium Level 3.4 L Chloride Level 112 H Carbon Dioxide 26 Level Anion Gap 7 Blood Urea 20 Nitrogen Creatinine 1.37 H Est Glomerular 52 L Filtrat Rate mL/min Glucose Level 123 Lactic Acid Level 1.2 Calcium Level 8.2 L Phosphorus Level 2.9 Magnesium Level 1.9 Test 10/07/18 06:49 10/07/18 08:57 Bedside Glucose 124 137 Exam/Review of Systems Vital Signs Vitals Vital Signs Date Temp Pulse Resp B/P (MAP) Pulse Ox O2 O2 Flow FiO2 Time Delivery Rate 10/07/18 98.0 85 16 123/86 98 Mechanical 06:00 (98) Ventilator 10/07/18 30 05:19 Intake and Output 10/06/18 10/06/18 10/07/18 1515:00 23:00 07:00 IntakeIntake Total 1272.9 ml 1429.3 ml 1378.5 ml OutputOutput Total 1215 ml 1125 ml 925 ml BalanceBalance 57.9 ml 304.3 ml 453.5 ml Exam Constitutional: other (Obtunded, no purposeful movements) Respiratory: diminished breath sounds (Basis much improved air movement), other (Mechanical ventilation) Cardiovascular: irregular rhythm (Chronic atrial fibrillation) Gastrointestinal: soft, non-tender, other (Tube feedings tolerated) Musculoskeletal: nl extremities to inspection Extremities: normal pulses, other (Mild anasarca) Neurological: unresponsive (Mostly, patient obtunded, no purposeful movement, does bite ET tube and grimaces to noxious stimuli.) Medications Medications Current Medications Acetaminophen (Tylenol Tab) 650 mg Q4H PRN PO pain/fever; Start 10/02/18 at 02:30 Ondansetron HCl (Zofran Inj) 4 mg Q4H PRN IV nausea; Start 10/02/18 at 02:30 Pantoprazole (Protonix Iv) 40 mg DAILY@0600 IV Last administered on 10/07/18at 05:19; Admin Dose 40 MG; Start 10/02/18 at 06:00 Insulin Human Regular 100 unit/ Sodium Chloride 100 ml @ 0 mls/hr PER PROTOCOL IV Last administered on 10/07/18at 05:12; Admin Dose 1.5 MLS/HR; Start 10/02/18 at 03:00 Miscellaneous Information (* Miscellaneous Pharmacy Order) Treatment of Hypoglycemia: 1.BG 51... Per protocol XX ; Start 10/02/18 at 03:00 Dextrose (D50w Syringe) 25 ml Q15M PRN IV DECREASED GLUCOSE; Start 10/02/18 at 03:00 Dextrose (D50w Syringe) 50 ml Q15M PRN IV DECREASED GLUCOSE; Start 10/02/18 at 03:00 Levetiracetam 100 ml @ 400 mls/hr Q12 IVPB Last administered on 10/07/18at 08:54; Admin Dose 400 MLS/HR; Start 10/02/18 at 04:00 Morphine Sulfate (morphine SULFATE (PF)) 2 mg Q2 PRN IV pain Last administered on 10/05/18at 20:39; Admin Dose 2 MG; Start 10/03/18 at 02:48 Potassium Chloride 10 meq/ Sodium Chloride 1,005 ml @ 80 mls/hr [id number] IV Last administered on 10/07/18at 06:09; Admin Dose 80 MLS/HR; Start 10/04/18 at 21:00 Diagnostic Test (Pha) (Accu-Chek) 1 ea Q2 XX Last administered on 10/07/18at 08:54; Admin Dose 1 EA; Start 10/05/18 at 20:00 Piperacillin Sod/ Tazobactam Sod 100 ml @ 200 mls/hr Q8 IVPB Last administered on 10/07/18at 05:19; Admin Dose 200 MLS/HR; Start 10/06/18 at 22:00 Potassium Chloride 50 ml @ 25 mls/hr Q2H IVPB Last administered on 10/07/18at 09:31; Admin Dose 25 MLS/HR; Start 10/07/18 at 09:00; Stop 10/07/18 at 12:59 Imaging Imaging PROCEDURE: XR Chest. CLINICAL INDICATION: Intubated TECHNIQUE: Portable AP view of the chest was obtained. COMPARISON: DR QUINTERO 10/03/2018 FINDINGS: Endotracheal tube and left upper extremity PICC line are in good position. Patchy opacities in left lower lobe with probable tiny left pleural effusion. No pneumothorax. Mild cardiomegaly. IMPRESSION: Mild patchy opacities in the left lower lobe with tiny left pleural effusion. Findings may represent atelectasis, however correlate for aspiration or pneumonia. RPTAT:AAJJ Preston Rao, Physician Date Time Electronically viewed and signed by Preston Rao Physician on 10/07/2018 08:27 RF/ Echocardiogram Report Patient Name: BISHOP CONNORS Gender: Male Date: 1950 Study Date: 02-Oct-2018 Slash Trimmer: Lucero Velasco RDCS Location: 105 Ref. Physician: CANDELARIA ARROYO Quality: Adequate Procedures: Transthoracic echocardiogram with complete 2D, M-Mode, and doppler examination. Indications: Elevated trop. 2D/M Mode Doppler Measurement Value Normal Ranges Measurement Value Normal Ranges LVIDd 2D 3.8 3.5 - 5.6 cm AV Peak Angelo 1.3 m/sec LVIDs 2D 2.7 2.1 - 4.1 cm AV Peak PG 6.0 mmHg FS 2D 28.5 % LVOT Peak Angelo 0.9 m/sec LVPWd 2D 1.2 0.6 - 1.1 cm LVOT Peak PG 4.0 mmHg IVSd 2D 1.3 0.6 - 1.1 cm TR Peak Angelo 3.0 m/sec IVS/LVPW 2D 1.1 TR Peak PG 35.0 mmHg AoR Diam 2D 3.0 2.0 - 3.7 cm RVSP 43.0 mmHg LA/Ao 2D 1 0 - 1 RA Pressure 8.0 EDV 2D 52.7 cm3 ESV 2D 19.2 cm3 LA Dimen 2D 3.6 2.3 - 4.0 cm Findings Left Ventricle: Overall, low normal left ventricular systolic function. Not all segments visualized. Normal left ventricular cavity size. Mild concentric left ventricular hypertrophy. Ejection fraction is visually estimated at 50 %. These segments of the LV are akinetic apical cap. Right Ventricle: Normal right ventricular size. Normal right ventricular systolic function. Left Atrium: The left atrium is normal in size. Right Atrium: The right atrium is normal in size. Mitral Valve: Normal appearance and function of the mitral valve with trace physiologic regurgitation. Aortic Valve: No significant aortic stenosis or insufficiency. Aortic cusps appear mildly calcified. Tricuspid Valve: Normal appearance of the tricuspid valve. Estimated peak PA systolic pressure 43 mmHg. There is mild tricuspid regurgitation. Pulmonic Valve: Normal pulmonic valve appearance. Pericardium: Normal pericardium with no significant pericardial effusion. Aorta: Normal aortic root. IVC: Dilated IVC without respiratory collapse consistent with elevated right atrial pressure. Conclusions Overall, low normal left ventricular systolic function. Not all segments visualized. Normal left ventricular cavity size. Mild concentric left ventricular hypertrophy. Ejection fraction is visually estimated at 50 %. These segments of the LV are akinetic apical cap. Normal right ventricular size. Normal right ventricular systolic function. The left atrium is normal in size. The right atrium is normal in size. Estimated peak PA systolic pressure 43 mmHg. There is mild tricuspid regurgitation. No significant valvular stenosis or regurgitation seen of remaining visualized valves. Normal pericardium with no significant pericardial effusion. Electronically Signed By: Ced Barboza 02-Oct-2018 19:41:27 -0800 D[place] BUSTAMANTE Oct 07, 2018 10:09
[2018-10-07] MEDS ORDERED: GLUCOSE GEL 15 GRAM TUBE BUCCAL PRN (10:30)
[2018-10-07] MEDS ORDERED: DEXTROSE 50% 50 ML SYRINGE IV PRN ×2 (10:30)
[2018-10-07] MEDS ORDERED: GLUCAGON 1 MG INJ IM PRN (10:30)
[2018-10-07] MEDS ORDERED: GLUCOSE GEL 15 GRAM TUBE PO PRN ×2 (10:30)
--- NOTE | 2018-10-07 10:33 | CONS ---
Date/Time of Note Date/Time of Note DATE: 10/07/18 TIME: 10:33 Assessment/Plan Assessment/Plan Assessment/Plan 1. acute kidney injury on CKD unknown baseline Cr due to ATN from septic shock + severe prerenal azotemia from DKA 2. Acute hyperkalemia due to RIVAS 3. Acute hypernatremia due to severe dehydration from Hyperglycemia hyperosmolar State 4. Acute respiratory failure possible due to Aspiration PNA + septic shock, intubated on ventilator 5. Septic shock 2/2 Aspiration PNA 6. Intracranial bleeding 7. H/o atrial fibrillation on Eliis unitl admission 8. H/o HTN 9. Acute on chronic encephalopathy 10. Elevated Troponin 11. Dysphagia secondary to CVA s/p G tube placement 12. 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 Again baseline significant encephalopathy and mostly bedbound for the past 2 years with recent worsening few weeks ago. Plan: BUN/Cr 07/10.37- slowly improving, Na improved to 145, K 3.4- 1/2 NS with KCl 10mEQ at 80 cc/hr ,K replacement as per Protocol Renal US has been done which is unremarkable except left kidney cyst ventilator care as per pulmonary Urine output 3.3 liter in last 24 hr IV abx to cover him for HCAP- Renally dose all abx and monitor electrolytes Not a Hemodialysis candidate due to ICH, poor prognosis and comorbities will follow up Result Diagram: 10/07/18 0516 10/07/18 0516 Results 24hrs Laboratory Tests Test 10/06/18 11:23 10/06/18 13:38 10/06/18 15:38 10/06/18 17:29 Bedside Glucose 129 130 126 115 Test 10/06/18 18:46 10/06/18 20:55 10/06/18 23:08 10/07/18 01:05 Bedside Glucose 137 115 124 106 Test 10/07/18 03:07 10/07/18 05:00 10/07/18 05:11 10/07/18 05:16 Bedside Glucose 133 135 Blood Gas Blood arterial Specimen Source Arterial Blood 10/07/2018 4:45:3 Date Drawn 6 AM Arterial Blood pH 7.456 H (Temp corrected) Arterial Blood 35.0 pCO2 (Temp correct) Arterial Blood 87.0 pO2 (Temp corrected) Arterial Blood 24.1 HCO3 Arterial Blood 0.7 Base Excess Arterial Blood 96.6 Oxygen Saturation Justice Test ACCEPTAB Arterial Blood Left Radial Gas Puncture Site Arterial 0.7 Blood Carboxyhemo globin Arterial Blood 0.3 Methemoglobin Blood Gas A-a O2 85.8 H Differential Oxyhemoglobin 95.6 Percent Blood Gas 37.0 Temperature Blood Gas 16.0 Respiration Rate Blood Gas Actual 18 Respiration Rate Blood Gas VENT - AC Modality FiO2 30.0 Blood Gas Tidal 500.0 Volume Blood Gas Low 5.0 PEEP Setting Blood Gas 30.0 Inspiratory Pressure Blood Gas [facility] Notified Whom Blood Gas 10/07/2018 4:52:5 Notified Time 6 AM White Blood Count 7.5 Red Blood Count 3.74 L Hemoglobin 11.0 L Hematocrit 34.5 L Mean Corpuscular 92.2 Volume Mean Corpuscular 29.4 Hemoglobin Mean Corpuscular 31.9 L Hemoglobin Concen t Red Cell 11.7 Distribution Width Platelet Count 159 Mean Platelet 11.5 H Volume Immature 0.500 H Granulocytes % Neutrophils % 69.3 Lymphocytes % 17.5 Monocytes % 8.6 Eosinophils % 4.0 Basophils % 0.1 Nucleated Red 0.0 Blood Cells % Immature 0.040 H Granulocytes # Neutrophils # 5.2 Lymphocytes # 1.3 Monocytes # 0.6 Eosinophils # 0.3 Basophils # 0.0 Nucleated Red 0.0 Blood Cells # Sodium Level 145 H Potassium Level 3.4 L Chloride Level 112 H Carbon Dioxide 26 Level Anion Gap 7 Blood Urea 20 Nitrogen Creatinine 1.37 H Est Glomerular 52 L Filtrat Rate mL/min Glucose Level 123 Lactic Acid Level 1.2 Calcium Level 8.2 L Phosphorus Level 2.9 Magnesium Level 1.9 Test 10/07/18 06:49 10/07/18 08:57 Bedside Glucose 124 137 Consultation Date/Type/Reason Admit Date/Time Oct 02, 2018 at 01:47 Initial Consult Date 10/02/18 Type of Consult NEPHROLOGY Requesting Provider: CANDELARIA ARROYO MD 24 HR Interval Summary Free Text/Dictation remained on ventilator, Unresponsive on ventilator Exam/Review of Systems Vital Signs Vitals Vital Signs Date Temp Pulse Resp B/P (MAP) Pulse Ox O2 O2 Flow FiO2 Time Delivery Rate 10/07/18 98.0 85 16 123/86 98 Mechanical 06:00 (98) Ventilator 10/07/18 30 05:19 Intake and Output 10/06/18 10/06/18 10/07/18 1515:00 23:00 07:00 IntakeIntake Total 1272.9 ml 1429.3 ml 1378.5 ml OutputOutput Total 1215 ml 1125 ml 925 ml BalanceBalance 57.9 ml 304.3 ml 453.5 ml Exam Constitutional: non-verbal ENMT: intubated Respiratory: congested cough, crackles/rales, diminished breath sounds Cardiovascular: regular rate and rhythm, nl pulses Gastrointestinal: soft, other (NT, ND, BS+) Musculoskeletal: swelling (1-2+ pitting edema) Extremities: normal pulses Neurological: unresponsive, other (on ventilator ) Medications Medications Current Medications Acetaminophen (Tylenol Tab) 650 mg Q4H PRN PO pain/fever; Start 10/02/18 at 02:30 Ondansetron HCl (Zofran Inj) 4 mg Q4H PRN IV nausea; Start 10/02/18 at 02:30 Pantoprazole (Protonix Iv) 40 mg DAILY@0600 IV Last administered on 10/07/18at 05:19; Admin Dose 40 MG; Start 10/02/18 at 06:00 Miscellaneous Information (* Miscellaneous Pharmacy Order) Treatment of Hypo glycemia: 1.BG 51... Per protocol XX ; Start 10/02/18 at 03:00 Dextrose (D50w Syringe) 25 ml Q15M PRN IV DECREASED GLUCOSE; Start 10/02/18 at 03:00 Dextrose (D50w Syringe) 50 ml Q15M PRN IV DECREASED GLUCOSE; Start 10/02/18 at 03:00 Levetiracetam 100 ml @ 400 mls/hr Q12 IVPB Last administered on 10/07/18at 08:54; Admin Dose 400 MLS/HR; Start 10/02/18 at 04:00 Morphine Sulfate (morphine SULFATE (PF)) 2 mg Q2 PRN IV pain Last administered on 10/05/18at 20:39; Admin Dose 2 MG; Start 10/03/18 at 02:48 Diagnostic Test (Pha) (Accu-Chek) 1 ea Q2 XX Last administered on 10/07/18at 08:54; Admin Dose 1 EA; Start 10/05/18 at 20:00 Piperacillin Sod/ Tazobactam Sod 100 ml @ 200 mls/hr Q8 IVPB Last administered on 10/07/18at 05:19; Admin Dose 200 MLS/HR; Start 10/06/18 at 22:00 Potassium Chloride 50 ml @ 25 mls/hr Q2H IVPB Last administered on 10/07/18at 09:31; Admin Dose 25 MLS/HR; Start 10/07/18 at 09:00; Stop 10/07/18 at 12:59 Insulin Glargine (Lantus) 24 units DAILY@0800 SC ; Start 10/07/18 at 10:30 Insulin Aspart (Novolog Insulin Pen) NOVOLOG *MODERATE* ALGORITHM WITH MEALS BEDTIME SC ; Start 10/07/18 at 11:30 Miscellaneous Information 1 ea NOTE XX ; Start 10/07/18 at 10:30 Glucose (Glutose) 15 gm Q15M PRN PO DECREASED GLUCOSE; Start 10/07/18 at 10:30 Glucose (Glutose) 22.5 gm Q15M PRN PO DECREASED GLUCOSE; Start 10/07/18 at 10:30 Dextrose (D50w Syringe) 25 ml Q15M PRN IV DECREASED GLUCOSE; Start 10/07/18 at 10:30 Dextrose (D50w Syringe) 50 ml Q15M PRN IV DECREASED GLUCOSE; Start 10/07/18 at 10:30 Glucagon (Glucagen) 1 mg Q15M PRN IM DECREASED GLUCOSE; Start 10/07/18 at 10:30 Glucose (Glutose) 15 gm Q15M PRN BUCCAL DECREASED GLUCOSE; Start 10/07/18 at 10:30 KAMILA FAGAN MD Oct 07, 2018 10:33
[2018-10-07] MEDS: INSULIN ASPART [NOVOLOG] 3 ML PEN SC SCH ×3 (11:30→20:18)
[2018-10-07] MEDS: INSULIN GLARGINE [LANTus] (100 UNITS/ML) SYG SC SCH (11:51)
--- NOTE | 2018-10-07 12:06 | CONS ---
Date/Time of Note Date/Time of Note DATE: 10/07/18 TIME: 12:01 Consult Date/Type/Reason Admit Date/Time Oct 02, 2018 at 01:47 Initial Consult Date 10/02/18 Type of Consultation: Pulm/CCM Requesting Provider: CANDELARIA ARROYO MD Subjective Remains on vent and unresponsive on vent. Objective Vital Signs Date Temp Pulse Resp B/P (MAP) Pulse Ox O2 O2 Flow FiO2 Time Delivery Rate 10/07/18 76 17 90/68 (75) 99 Mechanical 10:00 Ventilator 10/07/18 98.4 08:00 10/07/18 30 05:19 Intake and Output 10/06/18 10/06/18 10/07/18 1414:59 22:59 06:59 IntakeIntake Total 1302.9 ml 1299.8 ml 1589.5 ml OutputOutput Total 1090 ml 1200 ml 1050 ml BalanceBalance 212.9 ml 99.8 ml 539.5 ml Exam HEENT: Neck supple; no JVD; no LAD; + ET tube CVS: RRR, S1 and S2 CHEST: Clear ABD: Soft, NT, + BS EXT: No c/c; + edema NEURO: Obtunded on mechanical vent; bites on ET tube during suctioning Results/Medications Result Diagram: 10/07/1816 10/07/18 0516 Results 24 hrs Laboratory Tests Test 10/06/18 13:38 10/06/18 15:38 10/06/18 17:29 10/06/18 18:46 Bedside Glucose 130 126 115 137 Test 10/06/18 20:55 10/06/18 23:08 10/07/18 01:05 10/07/18 03:07 Bedside Glucose 115 124 106 133 Test 10/07/18 05:00 10/07/18 05:11 10/07/18 05:16 10/07/18 06:49 Blood Gas Blood arterial Specimen Source Arterial Blood 10/07/2018 4:45:3 Date Drawn 6 AM Arterial Blood pH 7.456 H (Temp corrected) Arterial Blood 35.0 pCO2 (Temp correct) Arterial Blood 87.0 pO2 (Temp corrected) Arterial Blood 24.1 HCO3 Arterial Blood 0.7 Base Excess Arterial Blood 96.6 Oxygen Saturation Justice Test ACCEPTAB Arterial Blood Left Radial Gas Puncture Site Arterial 0.7 Blood Carboxyhemo globin Arterial Blood 0.3 Methemoglobin Blood Gas A-a O2 85.8 H Differential Oxyhemoglobin 95.6 Percent Blood Gas 37.0 Temperature Blood Gas 16.0 Respiration Rate Blood Gas Actual 18 Respiration Rate Blood Gas VENT - AC Modality FiO2 30.0 Blood Gas Tidal 500.0 Volume Blood Gas Low 5.0 PEEP Setting Blood Gas 30.0 Inspiratory Pressure Blood Gas [facility] Notified Whom Blood Gas 10/07/2018 4:52:5 Notified Time 6 AM Bedside Glucose 135 124 White Blood Count 7.5 Red Blood Count 3.74 L Hemoglobin 11.0 L Hematocrit 34.5 L Mean Corpuscular 92.2 Volume Mean Corpuscular 29.4 Hemoglobin Mean Corpuscular 31.9 L Hemoglobin Concen t Red Cell 11.7 Distribution Width Platelet Count 159 Mean Platelet 11.5 H Volume Immature 0.500 H Granulocytes % Neutrophils % 69.3 Lymphocytes % 17.5 Monocytes % 8.6 Eosinophils % 4.0 Basophils % 0.1 Nucleated Red 0.0 Blood Cells % Immature 0.040 H Granulocytes # Neutrophils # 5.2 Lymphocytes # 1.3 Monocytes # 0.6 Eosinophils # 0.3 Basophils # 0.0 Nucleated Red 0.0 Blood Cells # Sodium Level 145 H Potassium Level 3.4 L Chloride Level 112 H Carbon Dioxide 26 Level Anion Gap 7 Blood Urea 20 Nitrogen Creatinine 1.37 H Est Glomerular 52 L Filtrat Rate mL/min Glucose Level 123 Lactic Acid Level 1.2 Calcium Level 8.2 L Phosphorus Level 2.9 Magnesium Level 1.9 Test 10/07/18 08:57 10/07/18 11:14 Bedside Glucose 137 136 Medications Current Medications Acetaminophen (Tylenol Tab) 650 mg Q4H PRN PO pain/fever; Start 10/02/18 at 02:30 Ondansetron HCl (Zofran Inj) 4 mg Q4H PRN IV nausea; Start 10/02/18 at 02:30 Pantoprazole (Protonix Iv) 40 mg DAILY@0600 IV Last administered on 10/07/18at 05:19; Admin Dose 40 MG; Start 10/02/18 at 06:00 Miscellaneous Information (* Miscellaneous Pharmacy Order) Treatment of Hypoglycemia: 1.BG 51... Per protocol XX ; Start 10/02/18 at 03:00 Dextrose (D50w Syringe) 25 ml Q15M PRN IV DECREASED GLUCOSE; Start 10/02/18 at 03:00 Dextrose (D50w Syringe) 50 ml Q15M PRN IV DECREASED GLUCOSE; Start 10/02/18 at 03:00 Levetiracetam 100 ml @ 400 mls/hr Q12 IVPB Last administered on 10/07/18at 08:54; Admin Dose 400 MLS/HR; Start 10/02/18 at 04:00 Morphine Sulfate (morphine SULFATE (PF)) 2 mg Q2 PRN IV pain Last administered on 10/05/18at 20:39; Admin Dose 2 MG; Start 10/03/18 at 02:48 Diagnostic Test (Pha) (Accu-Chek) 1 ea Q2 XX Last administered on 10/07/18at 11:12; Admin Dose 1 EA; Start 10/05/18 at 20:00 Piperacillin Sod/ Tazobactam Sod 100 ml @ 200 mls/hr Q8 IVPB Last administered on 10/07/18at 05:19; Admin Dose 200 MLS/HR; Start 10/06/18 at 22:00 Potassium Chloride 50 ml @ 25 mls/hr Q2H IVPB Last administered on 10/07/18at 11:12; Admin Dose 25 MLS/HR; Start 10/07/18 at 09:00; Stop 10/07/18 at 12:59 Insulin Glargine (Lantus) 24 units DAILY@0800 SC Last administered on 10/07/18at 11:51; Admin Dose 24 UNITS; Start 10/07/18 at 10:30 Insulin Aspart (Novolog Insulin Pen) NOVOLOG *MODERATE* ALGORITHM WITH MEALS BEDTIME SC ; Start 10/07/18 at 11:30 Miscellaneous Information 1 ea NOTE XX ; Start 10/07/18 at 10:30 Glucose (Glutose) 15 gm Q15M PRN PO DECREASED GLUCOSE; Start 10/07/18 at 10:30 Glucose (Glutose) 22.5 gm Q15M PRN PO DECREASED GLUCOSE; Start 10/07/18 at 10:30 Dextrose (D50w Syringe) 25 ml Q15M PRN IV DECREASED GLUCOSE; Start 10/07/18 at 10:30 Dextrose (D50w Syringe) 50 ml Q15M PRN IV DECREASED GLUCOSE; Start 10/07/18 at 10:30 Glucagon (Glucagen) 1 mg Q15M PRN IM DECREASED GLUCOSE; Start 10/07/18 at 10:30 Glucose (Glutose) 15 gm Q15M PRN BUCCAL DECREASED GLUCOSE; Start 10/07/18 at 10:30 Assessment/Plan Additional Assessment/Plan IMP: 1. Septic Shock 2. Respiratory Failure/Vent Dependence--2/2 encephalopathy 3. Encephalopathy 4. ARF 5. ICH 6. Afib 7. FEN-elevated Na+ and low K+ RECS: 1. Vent support 2. Bronch bite block given patient bitting during suctioning 3. Await family decision/meeting regarding transition to comfort care 4. Continue keppra 5. Follow renal function; am labs 6. Prognosis very poor Case d/w RN 40 min cc time WILFREDO STOUT MD Oct 07, 2018 12:06
[2018-10-08] VITALS (36 sets, daily range): BP systolic 125–171; BP diastolic 85–128; PULSE 80–110; RESP 16–24
[2018-10-08] MEDS: INSULIN ASPART [NOVOLOG] 3 ML PEN SC SCH ×6 (01:03→20:35)
[2018-10-08] MEDS: PIPER-TAZO 3.375 GM IV (PMX) 100 ML IVPB SCH ×3 (05:17→20:41)
[2018-10-08] MEDS: PANTOPRAZOLE 40 MG INJ IV SCH (05:17)
[2018-10-08] MEDS: LEVETIRACETAM 1000 MG (PMX) 100 ML IVPB SCH ×2 (08:35→20:41)
[2018-10-08] MEDS: INSULIN GLARGINE [LANTus] (100 UNITS/ML) SYG SC SCH (08:37)
[2018-10-08] MEDS: BALSAM PERU/CASTOR OIL 60 GM TUBE TOP SCH ×2 (08:38→20:41)
--- NOTE | 2018-10-08 09:21 | PN ---
DATE: 10/08/2018 SUBJECTIVE: The patient remains completely unresponsive. He was intubated. OBJECTIVE VITAL SIGNS: Stable and afebrile. LUNGS: Clear to auscultation bilaterally. HEART: Regular rate and rhythm. ABDOMEN: Soft with normoactive bowel sounds. EXTREMITIES: Mild edema. ASSESSMENT AND PLAN: A 68-year-old male with; 1. Acute intracranial hemorrhage and ischemic cerebrovascular accident. 2. Obtunded state. 3. Status post septic shock, most likely due to aspiration pneumonia. 4. Acute respiratory failure on ventilator support. 5. Acute renal failure. 6. Diabetes mellitus. 7. Chronic atrial fibrillation. 8. Chronic encephalopathy. 9. DNR code status. 10. Extremely poor prognosis. PLAN: 1. Await for family decision regarding the terminal extubation. 2. Continue supportive care for the time being. Dictated By: ZORAIDA DAHL/NTS Conf#: [id number] DID#: [id number] CC: CANDELARIA ARROYO MD; JOSE STEWART DO;*End*
--- NOTE | 2018-10-08 09:39 | CONS ---
Date/Time of Note Date/Time of Note DATE: 10/08/18 TIME: 09:34 Assessment/Plan Assessment/Plan Assessment/Plan Ventilator setting; AC of 16, tidal volume 500, PEEP of 5, 30% FiO2. Assessment and recommendations; 1. Patient with history of chronic encephalopathy with history of prior craniotomy admitted for altered mental status with acute intracerebral bleed. Patient exhibiting persistent severe mental unresponsiveness. 2. Acute renal injury with continually improving renal function. Apparently has some degree of baseline renal impairment. 3. Stable seizure disorder. 4. Sepsis, improved. 5. Hypernatremia with interval resolution. 6. Mild anemia and thrombocytopenia 7. chronic atrial fibrillation. 8. DM continue supportive care. Consider stopping antibiotic. Prognosis is very poor. Result Diagram: 10/07/18 0516 10/08/18 0400 Results 24hrs Laboratory Tests Test 10/07/18 11:14 10/07/18 12:52 10/07/18 13:50 10/07/18 17:24 Bedside Glucose 136 116 120 159 Test 10/07/18 20:13 10/08/18 00:54 10/08/18 04:00 10/08/18 05:20 Bedside Glucose 126 148 139 Sodium Level 144 Potassium Level 3.7 Chloride Level 112 H Carbon Dioxide Level 25 Anion Gap 7 Blood Urea Nitrogen 17 Creatinine 1.50 H Est Glomerular 47 L Filtrat Rate mL/min Glucose Level 138 Calcium Level 8.6 Magnesium Level 1.9 Test 10/08/18 08:30 Bedside Glucose 160 Consultation Date/Type/Reason Admit Date/Time Oct 02, 2018 at 01:47 Initial Consult Date 10/02/18 Type of Consult Pulmonary/critical care Pulmonary consult requested for evaluation of respiratory failure and sepsis. History of presenting illness; patient is a 68-year-old male who was admitted to the hospital because of altered mental status with severe lethargic. Patient was diagnosed with DKA with severe hyperglycemia and had to be intubated because of respiratory failure. By the time I saw him, patient is orally intubated, on ventilator and unresponsive. Patient however did not appear to be in any distress. Past medical history; 1. History of CVA with apparent encephalopathy. 2. History of dysphagia, status post PEG tube placement. 3. Diabetes. 4. History of seizure disorder. 5. Baseline renal status is unknown. 6. Chronic atrial fibrillation. Medications; reviewed. Patient is currently on insulin drip at 16 units/h as well as Levophed at 6 mics per minute. Other medications were reviewed. Allergies; none. Occupational history, social history, family history not available. Review of system; unable to be obtained. General exam; elderly male, orally intubated, unresponsive, currently in no distress. Requesting Provider: CANDELARIA ARROYO MD 24 HR Interval Summary Free Text/Dictation Patient's condition remains stable but critical. Patient remains completely unresponsive. However has remained hemodynamically stable. General exam; elderly male, orally intubated. Unresponsive. Currently in no distress. Exam/Review of Systems Vital Signs Vitals Vital Signs Date Temp Pulse Resp B/P (MAP) Pulse Ox O2 O2 Flow FiO2 Time Delivery Rate 10/08/18 96 16 126/95 100 Mechanical 09:00 (105) Ventilator 10/08/18 98.2 08:00 10/08/18 30 05:39 Intake and Output 10/07/18 10/07/18 10/08/18 1515:00 23:00 07:00 IntakeIntake Total 1048.5 ml 940 ml 840 ml OutputOutput Total 1175 ml 925 ml 965 ml BalanceBalance -126.5 ml 15 ml -125 ml Exam H EENT exam; supple neck, no JVD. No lymphadenopathy. Midline trachea. No thyromegaly. There is stable left parietal skull depression. Pupils are small bilaterally. Orally intubated. Patient has fair dentition. No neck masses. Chest exam; diminished but clear breath sounds. S1-S2 audible, no murmurs. Irregular rhythm. Abdomen exam; soft, no organomegaly. Bowel sounds audible. Extremity exam; no peripheral edema. [employer] exam; patient remains unresponsive. Medications Medications Current Medications Acetaminophen (Tylenol Tab) 650 mg Q4H PRN PO pain/fever; Start 10/02/18 at 02:30 Ondansetron HCl (Zofran Inj) 4 mg Q4H PRN IV nausea; Start 10/02/18 at 02:30 Pantoprazole (Protonix Iv) 40 mg DAILY@0600 IV Last administered on 10/08/18at 05:17; Admin Dose 40 MG; Start 10/02/18 at 06:00 Levetiracetam 100 ml @ 400 mls/hr Q12 IVPB Last administered on 10/08/18at 08:35; Admin Dose 400 MLS/HR; Start 10/02/18 at 04:00 Morphine Sulfate (morphine SULFATE (PF)) 2 mg Q2 PRN IV pain Last administered on 10/05/18at 20:39; Admin Dose 2 MG; Start 10/03/18 at 02:48 Piperacillin Sod/ Tazobactam Sod 100 ml @ 200 mls/hr Q8 IVPB Last administered on 10/08/18at 05:17; Admin Dose 200 MLS/HR; Start 10/06/18 at 22:00 Insulin Glargine (Lantus) 24 units DAILY@0800 SC Last administered on 10/08/18at 08:37; Admin Dose 24 UNITS; Start 10/07/18 at 10:30 Miscellaneous Information 1 ea NOTE XX ; Start 10/07/18 at 10:30 Glucose (Glutose) 15 gm Q15M PRN PO DECREASED GLUCOSE; Start 10/07/18 at 10:30 Glucose (Glutose) 22.5 gm Q15M PRN PO DECREASED GLUCOSE; Start 10/07/18 at 10:30 Dextrose (D50w Syringe) 25 ml Q15M PRN IV DECREASED GLUCOSE; Start 10/07/18 at 10:30 Dextrose (D50w Syringe) 50 ml Q15M PRN IV DECREASED GLUCOSE; Start 10/07/18 at 10:30 Glucagon (Glucagen) 1 mg Q15M PRN IM DECREASED GLUCOSE; Start 10/07/18 at 10:30 Glucose (Glutose) 15 gm Q15M PRN BUCCAL DECREASED GLUCOSE; Start 10/07/18 at 10:30 Insulin Aspart (Novolog Insulin Pen) NOVOLOG *MODERATE* ALGORI... Q4 SC Last administered on 10/08/18at 08:34; Admin Dose 2 UNIT; Start 10/07/18 at 21:00 KAYE CRUZ Oct 08, 2018 09:39
--- NOTE | 2018-10-08 11:50 | CONS ---
Date/Time of Note Date/Time of Note DATE: 10/08/18 TIME: 11:50 Assessment/Plan Assessment/Plan Assessment/Plan 1. acute kidney injury due to ATN from septic shock + severe prerenal azotemia from DKA 2. Acute hyperkalemia due to RIVAS 3. Acute hypernatremia due to severe dehydration from Hyperglycemia hyperosmolar State 4. Acute respiratory failure possible due to Aspiration PNA + septic shock, intubated on ventilator 5. Septic shock 2/2 Aspiration PNA 6. Intracranial bleeding 7. H/o atrial fibrillation on Eliquis unitl admission 8. H/o HTN 9. Acute on chronic encephalopathy 10. Elevated Troponin 11. Dysphagia secondary to CVA s/p G tube placement 12. Recent acute CVA and status post aneurysm and hematoma evacuation in 2016, patient on Keppra for seizure prophylaxis. Again baseline significant encephalo jefe and mostly bedbound for the past 2 years with recent worsening few weeks ago. Plan: pt remains intubated, BUN/Cr improved to 17/1.5, Urine output 2.9 Liter El ectrolytes stable - IV keppra 1000mg BID, IV abx zosyn - renally dose all abx and monitor electrolytes Renal US has been done which is unremarkable except left kidney cyst ventilator care as per pulmonary IV abx to cover him for HCAP- Renally dose all abx and monitor electrolytes Not a Hemodialysis candidate due to ICH, poor prognosis and comorbities will follow up Result Diagram: 10/07/18 0516 10/08/18 0400 Results 24hrs Laboratory Tests Test 10/07/18 12:52 10/07/18 13:50 10/07/18 17:24 10/07/18 20:13 Bedside Glucose 116 120 159 126 Test 10/08/18 00:54 10/08/18 04:00 10/08/18 05:20 10/08/18 08:30 Bedside Glucose 148 139 160 Sodium Level 144 Potassium Level 3.7 Chloride Level 112 H Carbon Dioxide Level 25 Anion Gap 7 Blood Urea Nitrogen 17 Creatinine 1.50 H Est Glomerular 47 L Filtrat Rate mL/min Glucose Level 138 Calcium Level 8.6 Magnesium Level 1.9 Consultation Date/Type/Reason Admit Date/Time Oct 02, 2018 at 01:47 Initial Consult Date 10/02/18 Type of Consult NEPHROLOGY Requesting Provider: CANDELARIA ARROYO MD 24 HR Interval Summary Free Text/Dictation pt remains intubated, BUN/Cr improved to 17/1.5, Urine output 2.9 Liter Exam/Review of Systems Vital Signs Vitals Vital Signs Date Temp Pulse Resp B/P (MAP) Pulse Ox O2 O2 Flow FiO2 Time Delivery Rate 10/08/18 96 16 126/95 100 Mechanical 09:00 (105) Ventilator 10/08/18 98.2 08:00 10/08/18 30 05:39 Intake and Output 10/07/18 10/07/18 10/08/18 1515:00 23:00 07:00 IntakeIntake Total 1048.5 ml 940 ml 840 ml OutputOutput Total 1175 ml 925 ml 965 ml BalanceBalance -126.5 ml 15 ml -125 ml Exam Constitutional: non-verbal ENMT: intubated Respiratory: congested cough, crackles/rales, diminished breath sounds Cardiovascular: regular rate and rhythm, nl pulses Gastrointestinal: soft, other (NT, ND, BS+) Musculoskeletal: swelling (1-2+ pitting edema) Extremities: normal pulses Neurological: unresponsive, other (on ventilator ) Medications Medications Current Medications Acetaminophen (Tylenol Tab) 650 mg Q4H PRN PO pain/fever; Start 10/02/18 at 02:30 Ondansetron HCl (Zofran Inj) 4 mg Q4H PRN IV nausea; Start 10/02/18 at 02:30 Pantoprazole (Protonix Iv) 40 mg DAILY@0600 IV Last administered on 10/08/18at 05:17; Admin Dose 40 MG; Start 10/02/18 at 06:00 Levetiracetam 100 ml @ 400 mls/hr Q12 IVPB Last administered on 10/08/18at 08:35; Admin Dose 400 MLS/HR; Start 10/02/18 at 04:00 Morphine Sulfate (morphine SULFATE (PF)) 2 mg Q2 PRN IV pain Last administered on 10/05/18at 20:39; Admin Dose 2 MG; Start 10/03/18 at 02:48 Piperacillin Sod/ Tazobactam Sod 100 ml @ 200 mls/hr Q8 IVPB Last administered on 10/08/18at 05:17; Admin Dose 200 MLS/HR; Start 10/06/18 at 22:00 Insulin Glargine (Lantus) 24 units DAILY@0800 SC Last administered on 10/08/18at 08:37; Admin Dose 24 UNITS; Start 10/07/18 at 10:30 Miscellaneous Information 1 ea NOTE XX ; Start 10/07/18 at 10:30 Glucose (Glutose) 15 gm Q15M PRN PO DECREASED GLUCOSE; Start 10/07/18 at 10:30 Glucose (Glutose) 22.5 gm Q15M PRN PO DECREASED GLUCOSE; Start 10/07/18 at 10:30 Dextrose (D50w Syringe) 25 ml Q15M PRN IV DECREASED GLUCOSE; Start 10/07/18 at 10:30 Dextrose (D50w Syringe) 50 ml Q15M PRN IV DECREASED GLUCOSE; Start 10/07/18 at 10:30 Glucagon (Glucagen) 1 mg Q15M PRN IM DECREASED GLUCOSE; Start 10/07/18 at 10:30 Glucose (Glutose) 15 gm Q15M PRN BUCCAL DECREASED GLUCOSE; Start 10/07/18 at 10:30 Insulin Aspart (Novolog Insulin Pen) NOVOLOG *MODERATE* ALGORI... Q4 SC Last administered on 10/08/18at 08:34; Admin Dose 2 UNIT; Start 10/07/18 at 21:00 KAMILA FAGAN MD Oct 08, 2018 11:50
[2018-10-08] MEDS: PROPOFOL 100 ML IV SCH (21:48)
[2018-10-09] VITALS (35 sets, daily range): BP systolic 82–167; BP diastolic 42–108; PULSE 65–90; RESP 16–25
[2018-10-09] MEDS: INSULIN ASPART [NOVOLOG] 3 ML PEN SC SCH ×6 (01:00→20:23)
[2018-10-09] MEDS: PIPER-TAZO 3.375 GM IV (PMX) 100 ML IVPB SCH ×3 (05:40→20:23)
[2018-10-09] MEDS: PANTOPRAZOLE 40 MG INJ IV SCH (05:40)
[2018-10-09] MEDS: PROPOFOL 100 ML IV SCH (07:19)
[2018-10-09] MEDS: LEVETIRACETAM 1000 MG (PMX) 100 ML IVPB SCH ×2 (07:56→20:23)
[2018-10-09] MEDS: POTASSIUM CHLORIDE 20 MEQ POWDER FOR ORAL SOLN GTB SCH (07:56)
[2018-10-09] MEDS ORDERED: MAGNESIUM SULFATE 1 GM/D5W 100 ML IVPB ONE (08:00)
[2018-10-09] MEDS: BALSAM PERU/CASTOR OIL 60 GM TUBE TOP SCH ×2 (08:00→20:23)
[2018-10-09] MEDS ORDERED: POTASSIUM CHLORIDE (SR) 20 MEQ TAB PO ONE (08:00)
[2018-10-09] MEDS: INSULIN GLARGINE [LANTus] (100 UNITS/ML) SYG SC SCH (08:06)
--- NOTE | 2018-10-09 08:58 | CONS ---
Date/Time of Note Date/Time of Note DATE: 10/09/18 TIME: 08:54 Assessment/Plan Assessment/Plan Assessment/Plan Ventilator setting; AC of 14, tidal volume 500, PEEP of 5, 30% FiO2. Patient is currently on propofol at 40 mics per kilogram per minute. Assessment recommendations; 1. Patient with history of chronic encephalopathy admitted for worsening in mental status with acute intracranial bleed. 2. Sepsis with interval improvement. 3. Acute renal insufficiency with severe hypernatremia with marked overall int erval improvement. 4. Anemia and thrombocytopenia. 5. Diabetes. 6. Chronic atrial fibrillation. Continue current supportive care. Discontinue propofol. Resume sedation if required. Consider stopping antibiotics. Prognosis is poor. Family conference today regarding further plan of care. Result Diagram: 10/07/18 0516 10/09/18 0126 Results 24hrs Laboratory Tests Test 10/08/18 13:19 10/08/18 17:58 10/08/18 20:32 10/09/18 01:26 Bedside Glucose 163 108 124 Sodium Level 143 Potassium Level 3.5 Chloride Level 111 H Carbon Dioxide Level 26 Anion Gap 6 Blood Urea Nitrogen 16 Creatinine 1.44 H Est Glomerular 49 L Filtrat Rate mL/min Glucose Level 131 Calcium Level 8.5 Magnesium Level 1.9 Test 10/09/18 01:39 10/09/18 05:38 10/09/18 08:06 Bedside Glucose 133 150 139 Consultation Date/Type/Reason Admit Date/Time Oct 02, 2018 at 01:47 Initial Consult Date 10/02/18 Type of Consult Pulmonary/critical care Pulmonary consult requested for evaluation of respiratory failure and sepsis. History of presenting illness; patient is a 68-year-old male who was admitted to the hospital because of altered mental status with severe lethargic. Patient was diagnosed with DKA with severe hyperglycemia and had to be intubated because of respiratory failure. By the time I saw him, patient is orally intubated, on ventilator and unresponsive. Patient however did not appear to be in any distress. Past medical history; 1. History of CVA with apparent encephalopathy. 2. History of dysphagia, status post PEG tube placement. 3. Diabetes. 4. History of seizure disorder. 5. Baseline renal status is unknown. 6. Chronic atrial fibrillation. Medications; reviewed. Patient is currently on insulin drip at 16 units/h as well as Levophed at 6 mics per minute. Other medications were reviewed. Allergies; none. Occupational history, social history, family history not available. Review of system; unable to be obtained. General exam; elderly male, orally intubated, unresponsive, currently in no distress. Requesting Provider: CANDELARIA ARROYO MD 24 HR Interval Summary Free Text/Dictation Patient's condition remains critical. Remains seizure-free. Requiring propofol for occasional tachypnea. General exam; elderly male, on ventilator via endotracheal tube. Sedated. Currently in no distress. Exam/Review of Systems Vital Signs Vitals Vital Signs Date Temp Pulse Resp B/P (MAP) Pulse Ox O2 O2 Flow FiO2 Time Delivery Rate 10/09/18 96.9 75 16 124/88 100 Mechanical 08:00 (100) Ventilator 10/09/18 30 08:00 Intake and Output 10/08/18 10/08/18 10/09/18 1515:00 23:00 07:00 IntakeIntake Total 940 ml 943.033 ml 916.272 ml OutputOutput Total 800 ml 1205 ml 715 ml BalanceBalance 140 ml -261.967 ml 201.272 ml Exam HEENT exam; supple neck, no JVD. No lymphadenopathy. Midline trachea. No thy romegaly. Orally intubated. Patient has fair dentition. No neck masses. Chest exam; clear to auscultation. S1-S2 audible, no murmurs. Regular rhythm. Abdomen exam; soft, no organomegaly. Bowel sounds audible. G-tube in place. Extremity exam; peripheral edema. FUNERAL DIRECTOR'S ASSISTANT exam; patient is sedated. Medications Medications Current Medications Acetaminophen (Tylenol Tab) 650 mg Q4H PRN PO pain/fever; Start 10/02/18 at 02:30 Ondansetron HCl (Zofran Inj) 4 mg Q4H PRN IV nausea; Start 10/02/18 at 02:30 Pantoprazole (Protonix Iv) 40 mg DAILY@0600 IV Last administered on 10/09/18at 05:40; Admin Dose 40 MG; Start 10/02/18 at 06:00 Levetiracetam 100 ml @ 400 mls/hr Q12 IVPB Last administered on 10/09/18at 07:56; Admin Dose 400 MLS/HR; Start 10/02/18 at 04:00 Morphine Sulfate (morphine SULFATE (PF)) 2 mg Q2 PRN IV pain Last administered on 10/05/18at 20:39; Admin Dose 2 MG; Start 10/03/18 at 02:48 Piperacillin Sod/ Tazobactam Sod 100 ml @ 200 mls/hr Q8 IVPB Last administered on 10/09/18at 05:40; Admin Dose 200 MLS/HR; Start 10/06/18 at 22:00 Insulin Glargine (Lantus) 24 units DAILY@0800 SC Last administered on 10/09/18at 08:06; Admin Dose 24 UNITS; Start 10/07/18 at 10:30 Miscellaneous Information 1 ea NOTE XX ; Start 10/07/18 at 10:30 Glucose (Glutose) 15 gm Q15M PRN PO DECREASED GLUCOSE; Start 10/07/18 at 10:30 Glucose (Glutose) 22.5 gm Q15M PRN PO DECREASED GLUCOSE; Start 10/07/18 at 10:30 Dextrose (D50w Syringe) 25 ml Q15M PRN IV DECREASED GLUCOSE; Start 10/07/18 at 10:30 Dextrose (D50w Syringe) 50 ml Q15M PRN IV DECREASED GLUCOSE; Start 10/07/18 at 10:30 Glucagon (Glucagen) 1 mg Q15M PRN IM DECREASED GLUCOSE; Start 10/07/18 at 10:30 Glucose (Glutose) 15 gm Q15M PRN BUCCAL DECREASED GLUCOSE; Start 10/07/18 at 10:30 Insulin Aspart (Novolog Insulin Pen) NOVOLOG *MODERATE* ALGORI... Q4 SC Last administered on 10/09/18at 05:40; Admin Dose 2 UNIT; Start 10/07/18 at 21:00 Propofol 100 ml @ 2.433 mls/ hr Q12 IV Last administered on 10/09/18at 07:19; Admin Dose 6.812 MLS/HR; Start 10/08/18 at 21:30 Magnesium Sulfate/ Dextrose 100 ml @ 100 mls/hr ONCE ONCE IVPB Last administered on 10/09/18at 07:56; Admin Dose 100 MLS/HR; Start 10/09/18 at 08:00; Stop 10/09/18 at 08:59 Potassium Chloride (Potassium Chloride Pwd/Soln) 40 meq DAILY GTB Last administered on 10/09/18at 07:56; Admin Dose 40 MEQ; Start 10/09/18 at 07:53 KAYE CRUZ Oct 09, 2018 08:57
--- NOTE | 2018-10-09 11:58 | CONS ---
Assessment/Plan Assessment/Plan Assessment/Plan 1. acute kidney injury due to ATN from septic shock + severe prerenal azotemia from DKA 2. Acute hyperkalemia due to RIVAS 3. Acute hypernatremia due to severe dehydration from Hyperglycemia hyperosmolar State 4. Acute respiratory failure possible due to Aspiration PNA + septic shock, intubated on ventilator 5. Septic shock 2/2 Aspiration PNA 6. Intracranial bleeding 7. H/o atrial fibrillation on [facility] 8. H/o HTN 9. Acute on chronic encephalopathy 10. Elevated Troponin 11. Dysphagia secondary to CVA s/p G tube placement 12. Recent acute CVA and status post aneurysm and hematoma evacuation in 2016, patient on Keppra for seizure prophylaxis. Again baseline significant encephal opathy and mostly bedbound for the past 2 years with recent worsening few weeks ago. Plan: pt remains intubated, BUN/Cr improved to 16/1.44, Urine output 1.2 Liter Electrolytes stable - IV keppra 1000mg BID, IV abx zosyn - renally dose all abx and monitor electrolytes Renal US has been done which is unremarkable except left kidney cyst ventilator care as per pulmonary IV abx to cover him for HCAP- Renally dose all abx and monitor electrolytes Not a Hemodialysis candidate due to ICH, poor prognosis and comorbities will follow up Result Diagram: 10/07/18 0516 10/09/18 0126 Results 24hrs Laboratory Tests Test 10/08/18 13:19 10/08/18 17:58 10/08/18 20:32 10/09/18 01:26 Bedside Glucose 163 108 124 Sodium Level 143 Potassium Level 3.5 Chloride Level 111 H Carbon Dioxide Level 26 Anion Gap 6 Blood Urea Nitrogen 16 Creatinine 1.44 H Est Glomerular 49 L Filtrat Rate mL/min Glucose Level 131 Calcium Level 8.5 Magnesium Level 1.9 Test 10/09/18 01:39 10/09/18 05:38 10/09/18 08:06 Bedside Glucose 133 150 139 Consultation Date/Type/Reason Admit Date/Time Oct 02, 2018 at 01:47 Initial Consult Date 10/02/18 Type of Consult NEPHROLOGY Requesting Provider: CANDELARIA ARROYO MD 24 HR Interval Summary Free Text/Dictation pt remains intubated, BUN/Cr 16/1.44, familiy awaitng deciison Exam/Review of Systems Vital Signs Vitals Vital Signs Date Temp Pulse Resp B/P (MAP) Pulse Ox O2 O2 Flow FiO2 Time Delivery Rate 10/09/18 75 16 138/102 100 Mechanical 11:00 (114) Ventilator 10/09/18 96.9 08:00 10/09/18 30 08:00 Intake and Output 10/08/18 10/08/18 10/09/18 1515:00 23:00 07:00 IntakeIntake Total 940 ml 943.033 ml 916.272 ml OutputOutput Total 800 ml 1205 ml 715 ml BalanceBalance 140 ml -261.967 ml 201.272 ml Medications Medications Current Medications Acetaminophen (Tylenol Tab) 650 mg Q4H PRN PO pain/fever; Start 10/02/18 at 02:30 Ondansetron HCl (Zofran Inj) 4 mg Q4H PRN IV nausea; Start 10/02/18 at 02:30 Pantoprazole (Protonix Iv) 40 mg DAILY@0600 IV Last administered on 10/09/18at 05:40; Admin Dose 40 MG; Start 10/02/18 at 06:00 Levetiracetam 100 ml @ 400 mls/hr Q12 IVPB Last administered on 10/09/18at 07:56; Admin Dose 400 MLS/HR; Start 10/02/18 at 04:00 Morphine Sulfate (morphine SULFATE (PF)) 2 mg Q2 PRN IV pain Last administered on 10/05/18at 20:39; Admin Dose 2 MG; Start 10/03/18 at 02:48 Piperacillin Sod/ Tazobactam Sod 100 ml @ 200 mls/hr Q8 IVPB Last administered on 10/09/18at 05:40; Admin Dose 200 MLS/HR; Start 10/06/18 at 22:00 Insulin Glargine (Lantus) 24 units DAILY@0800 SC Last administered on 10/09/18at 08:06; Admin Dose 24 UNITS; Start 10/07/18 at 10:30 Miscellaneous Information 1 ea NOTE XX ; Start 10/07/18 at 10:30 Glucose (Glutose) 15 gm Q15M PRN PO DECREASED GLUCOSE; Start 10/07/18 at 10:30 Glucose (Glutose) 22.5 gm Q15M PRN PO DECREASED GLUCOSE; Start 10/07/18 at 10:30 Dextrose (D50w Syringe) 25 ml Q15M PRN IV DECREASED GLUCOSE; Start 10/07/18 at 10:30 Dextrose (D50w Syringe) 50 ml Q15M PRN IV DECREASED GLUCOSE; Start 10/07/18 at 10:30 Glucagon (Glucagen) 1 mg Q15M PRN IM DECREASED GLUCOSE; Start 10/07/18 at 10:30 Glucose (Glutose) 15 gm Q15M PRN BUCCAL DECREASED GLUCOSE; Start 10/07/18 at 10:30 Insulin Aspart (Novolog Insulin Pen) NOVOLOG *MODERATE* ALGORI... Q4 SC Last administered on 10/09/18at 05:40; Admin Dose 2 UNIT; Start 10/07/18 at 21:00 Propofol 100 ml @ 2.433 mls/ hr Q12 IV Last administered on 10/09/18at 07:19; Admin Dose 6.812 MLS/HR; Start 10/08/18 at 21:30 Potassium Chloride (Potassium Chloride Pwd/Soln) 40 meq DAILY GTB Last administered on 10/09/18at 07:56; Admin Dose 40 MEQ; Start 10/09/18 at 07:53 Date/Time of Note Date/Time of Note DATE: 10/09/18 TIME: 11:58 KAMILA FAGAN MD Oct 09, 2018 11:58
--- NOTE | 2018-10-09 14:03 | PN ---
DATE: 10/09/2018 SUBJECTIVE: The patient remains completely unresponsive. He is intubated. OBJECTIVE: VITAL SIGNS: Stable. LUNGS: Mild rhonchi. HEART: Regular rate and rhythm. ABDOMEN: Soft with normoactive bowel sounds. EXTREMITIES: Mild edema in the extremities. ASSESSMENT: 1. Acute intracranial hemorrhage and ischemic cerebrovascular accident. 2. Obtunded state. 3. Status post septic shock, most likely due to aspiration pneumonia. 4. Acute respiratory failure, ventilator dependent. 5. Acute renal failure, resolved. 6. Diabetes mellitus. 7. Chronic atrial fibrillation. 8. Chronic encephalopathy. 9. Extremely poor prognosis. PLAN: 1. Family conference today regarding decision for terminal extubation. 2. The case was discussed with the card checker. Dictated By: ZORAIDA WILKINSON MD for LUISITO OSPINA MD SK/NTS Conf#: [id number] DID#: [id number] CC: CANDELARIA ARROYO MD;*EndCC*
[2018-10-10] VITALS (26 sets, daily range): BP systolic 103–165; BP diastolic 71–105; PULSE 62–90; RESP 9–23
[2018-10-10] MEDS: INSULIN ASPART [NOVOLOG] 3 ML PEN SC SCH ×3 (00:46→08:16)
[2018-10-10] MEDS: PROPOFOL 100 ML IV SCH ×2 (00:46→09:00)
[2018-10-10] MEDS: PIPER-TAZO 3.375 GM IV (PMX) 100 ML IVPB SCH (05:09)
[2018-10-10] MEDS: PANTOPRAZOLE 40 MG INJ IV SCH (05:09)
[2018-10-10] MEDS: POTASSIUM CHLORIDE 20 MEQ POWDER FOR ORAL SOLN GTB SCH (08:12)
[2018-10-10] MEDS: LEVETIRACETAM 1000 MG (PMX) 100 ML IVPB SCH (08:12)
[2018-10-10] MEDS: INSULIN GLARGINE [LANTus] (100 UNITS/ML) SYG SC SCH (08:15)
--- NOTE | 2018-10-10 08:15 | CONS ---
Assessment/Plan Assessment/Plan Assessment/Plan 1. acute kidney injury due to ATN from septic shock + severe prerenal azotemia from DKA 2. Acute hyperkalemia due to RIVAS 3. Acute hypernatremia due to severe dehydration from Hyperglycemia hyperosmolar State 4. Acute respiratory failure possible due to Aspiration PNA + septic shock, intubated on ventilator 5. Septic shock 2/2 Aspiration PNA 6. Intracranial bleeding 7. H/o atrial fibrillation on [facility] admission 8. H/o HTN 9. Acute on chronic encephalopathy 10. Elevated Troponin 11. Dysphagia secondary to CVA s/p G tube placement 12. Recent acute CVA and status post aneurysm and hematoma evacuation in 2016, patient on Keppra for seizure prophylaxis. Again baseline significant encephal opathy and mostly bedbound for the past 2 years with recent worsening few weeks ago. Plan: pt remains intubated, not improving, Family possibly plan for hospice as per Not a Hemodialysis candidate due to ICH, poor prognosis and comorbities will sign off, call us if any questions Result Diagram: 10/07/18 0516 10/09/18 0126 Results 24hrs Laboratory Tests Test 10/09/18 13:19 10/09/18 17:14 10/09/18 20:02 10/10/18 00:16 Bedside Glucose 169 136 127 120 Test 10/10/18 05:05 Bedside Glucose 135 Consultation Date/Type/Reason Admit Date/Time Oct 02, 2018 at 01:47 Initial Consult Date 10/02/18 Type of Consult NEPHROLOGY Requesting Provider: CANDELARIA ARROYO MD 24 HR Interval Summary Free Text/Dictation pt remains intubated, not improving, Family possibly plan for hospice as per Exam/Review of Systems Vital Signs Vitals Vital Signs Date Temp Pulse Resp B/P (MAP) Pulse Ox O2 O2 Flow FiO2 Time Delivery Rate 10/10/18 80 16 136/91 100 Mechanical 06:00 (106) Ventilator 10/10/18 30 05:10 10/10/18 98.0 04:00 Intake and Output 10/09/18 10/09/18 10/10/18 1515:00 23:00 07:00 IntakeIntake Total 446.812 ml 669.196 ml 544.062 ml OutputOutput Total 725 ml 755 ml 535 ml BalanceBalance -278.188 ml -85.804 ml 9.062 ml Exam Constitutional: non-verbal ENMT: intubated Respiratory: congested cough, crackles/rales, diminished breath sounds Cardiovascular: regular rate and rhythm, nl pulses Gastrointestinal: soft, other (NT, ND, BS+) Musculoskeletal: swelling (1-2+ pitting edema) Extremities: normal pulses Neurological: unresponsive, other (on ventilator ) Medications Medications Current Medications Acetaminophen (Tylenol Tab) 650 mg Q4H PRN PO pain/fever; Start 10/02/18 at 02:30 Ondansetron HCl (Zofran Inj) 4 mg Q4H PRN IV nausea; Start 10/02/18 at 02:30 Pantoprazole (Protonix Iv) 40 mg DAILY@0600 IV Last administered on 10/10/18at 05:09; Admin Dose 40 MG; Start 10/02/18 at 06:00 Levetiracetam 100 ml @ 400 mls/hr Q12 IVPB Last administered on 10/09/18at 20:23; Admin Dose 400 MLS/HR; Start 10/02/18 at 04:00 Morphine Sulfate (morphine SULFATE (PF)) 2 mg Q2 PRN IV pain Last administered on 10/05/18at 20:39; Admin Dose 2 MG; Start 10/03/18 at 02:48 Piperacillin Sod/ Tazobactam Sod 100 ml @ 200 mls/hr Q8 IVPB Last administered on 10/10/18at 05:09; Admin Dose 200 MLS/HR; Start 10/06/18 at 22:00 Insulin Glargine (Lantus) 24 units DAILY@0800 SC Last administered on 10/09/18at 08:06; Admin Dose 24 UNITS; Start 10/07/18 at 10:30 Miscellaneous Information 1 ea NOTE XX ; Start 10/07/18 at 10:30 Glucose (Glutose) 15 gm Q15M PRN PO DECREASED GLUCOSE; Start 10/07/18 at 10:30 Glucose (Glutose) 22.5 gm Q15M PRN PO DECREASED GLUCOSE; Start 10/07/18 at 10:30 Dextrose (D50w Syringe) 25 ml Q15M PRN IV DECREASED GLUCOSE; Start 10/07/18 at 10:30 Dextrose (D50w Syringe) 50 ml Q15M PRN IV DECREASED GLUCOSE; Start 10/07/18 at 10:30 Glucagon (Glucagen) 1 mg Q15M PRN IM DECREASED GLUCOSE; Start 10/07/18 at 10:30 Glucose (Glutose) 15 gm Q15M PRN BUCCAL DECREASED GLUCOSE; Start 10/07/18 at 10:30 Insulin Aspart (Novolog Insulin Pen) NOVOLOG *MODERATE* ALGORI... Q4 SC Last administered on 10/09/18at 13:21; Admin Dose 2 UNIT; Start 10/07/18 at 21:00 Propofol 100 ml @ 2.433 mls/ hr Q12 IV Last administered on 10/10/18at 00:46; Admin Dose 4.866 MLS/HR; Start 10/08/18 at 21:30 Potassium Chloride (Potassium Chloride Pwd/Soln) 40 meq DAILY GTB Last administered on 10/09/18at 07:56; Admin Dose 40 MEQ; Start 10/09/18 at 07:53 Date/Time of Note Date/Time of Note DATE: 10/10/18 TIME: 08:15 KAMILA FAGAN MD Oct 10, 2018 08:15
[2018-10-10] MEDS: BALSAM PERU/CASTOR OIL 60 GM TUBE TOP SCH (08:46)
--- NOTE | 2018-10-10 09:26 | CONS ---
Assessment/Plan Assessment/Plan Assessment/Plan Ventilator setting; AC of 16, tidal volume 500, PEEP of 5, 30% FiO2. Patient is currently on propofol at 10 mics per kilogram per minute. Assessment and recommendations; 1. Patient with history of chronic encephalopathy admitted for worsening mental status with acute intracranial bleed. With persistently extremely poor mental status. 2. Diabetes. 3. Acute renal insufficiency on a background of likely mild baseline chronic renal insufficiency 4. Interval correction of hypernatremia. 5. Anemia and thrombocytopenia. 6. Diabetes. 7. Stable seizure disorder. 8. Prior history of craniotomy. 9. UTI. With sepsis with marked improvement in leukocytosis. Continue current supportive care. Discontinue Zosyn. Family to decide today around 10:00 about further plan of care. Patient likely will be terminally extubated. Prognosis is extremely poor. Result Diagram: 10/07/18 0516 10/09/18 0126 Results 24hrs Laboratory Tests Test 10/09/18 13:19 10/09/18 17:14 10/09/18 20:02 10/10/18 00:16 Bedside Glucose 169 136 127 120 Test 10/10/18 05:05 10/10/18 08:14 Bedside Glucose 135 159 Consultation Date/Type/Reason Admit Date/Time Oct 02, 2018 at 01:47 Initial Consult Date 10/02/18 Type of Consult Pulmonary/critical care Pulmonary consult requested for evaluation of respiratory failure and sepsis. History of presenting illness; patient is a 68-year-old male who was admitted to the hospital because of altered mental status with severe lethargic. Patient was diagnosed with DKA with severe hyperglycemia and had to be intubated because of respiratory failure. By the time I saw him, patient is orally intubated, on ventilator and unresponsive. Patient however did not appear to be in any distress. Past medical history; 1. History of CVA with apparent encephalopathy. 2. History of dysphagia, status post PEG tube placement. 3. Diabetes. 4. History of seizure disorder. 5. Baseline renal status is unknown. 6. Chronic atrial fibrillation. Medications; reviewed. Patient is currently on insulin drip at 16 units/h as well as Levophed at 6 mics per minute. Other medications were reviewed. Allergies; none. Occupational history, social history, family history not available. Review of system; unable to be obtained. General exam; elderly male, orally intubated, unresponsive, currently in no distress. Requesting Provider: CANDELARIA ARROYO MD 24 HR Interval Summary Free Text/Dictation Patient's condition remains critical. Requiring low-dose sedation. Has remained hemodynamically stable. No overt seizure activity reported. General exam; elderly male, orally intubated, sedated, currently in no distress. Exam/Review of Systems Vital Signs Vitals Vital Signs Date Temp Pulse Resp B/P (MAP) Pulse Ox O2 O2 Flow FiO2 Time Delivery Rate 10/10/18 81 08:00 10/10/18 30 08:00 10/10/18 97.8 16 140/84 100 Mechanical 08:00 (102) Ventilator Intake and Output 10/09/18 10/09/18 10/10/18 1515:00 23:00 07:00 IntakeIntake Total 446.812 ml 669.196 ml 578.928 ml OutputOutput Total 725 ml 755 ml 685 ml BalanceBalance -278.188 ml -85.804 ml -106.072 ml Exam H HEENT exam; supple neck, no JVD. No lymphadenopathy. Midline trachea. No thyromegaly. Orally intubated. Pupils are small bilaterally. Patient has fair dentition. There is a stable left parietal skull depression. Chest exam; clear to auscultation. S1-S2 audible, no murmurs. Irregular r hythm. Abdomen exam; soft, no organomegaly. Bowel sounds audible. Extremity exam; no peripheral edema. Pulses 1+. COMPUTER DESIGNER exam; patient is sedated. Medications Medications Current Medications Acetaminophen (Tylenol Tab) 650 mg Q4H PRN PO pain/fever; Start 10/02/18 at 02:30 Ondansetron HCl (Zofran Inj) 4 mg Q4H PRN IV nausea; Start 10/02/18 at 02:30 Pantoprazole (Protonix Iv) 40 mg DAILY@0600 IV Last administered on 10/10/18at 05:09; Admin Dose 40 MG; Start 10/02/18 at 06:00 Levetiracetam 100 ml @ 400 mls/hr Q12 IVPB Last administered on 10/10/18at 08:12; Admin Dose 400 MLS/HR; Start 10/02/18 at 04:00 Morphine Sulfate (morphine SULFATE (PF)) 2 mg Q2 PRN IV pain Last administered on 10/05/18at 20:39; Admin Dose 2 MG; Start 10/03/18 at 02:48 Piperacillin Sod/ Tazobactam Sod 100 ml @ 200 mls/hr Q8 IVPB Last administered on 10/10/18at 05:09; Admin Dose 200 MLS/HR; Start 10/06/18 at 22:00 Insulin Glargine (Lantus) 24 units DAILY@0800 SC Last administered on 10/10/18at 08:15; Admin Dose 24 UNITS; Start 10/07/18 at 10:30 Miscellaneous Information 1 ea NOTE XX ; Start 10/07/18 at 10:30 Glucose (Glutose) 15 gm Q15M PRN PO DECREASED GLUCOSE; Start 10/07/18 at 10:30 Glucose (Glutose) 22.5 gm Q15M PRN PO DECREASED GLUCOSE; Start 10/07/18 at 10:30 Dextrose (D50w Syringe) 25 ml Q15M PRN IV DECREASED GLUCOSE; Start 10/07/18 at 10:30 Dextrose (D50w Syringe) 50 ml Q15M PRN IV DECREASED GLUCOSE; Start 10/07/18 at 10:30 Glucagon (Glucagen) 1 mg Q15M PRN IM DECREASED GLUCOSE; Start 10/07/18 at 10:30 Glucose (Glutose) 15 gm Q15M PRN BUCCAL DECREASED GLUCOSE; Start 10/07/18 at 10:30 Insulin Aspart (Novolog Insulin Pen) NOVOLOG *MODERATE* ALGORI... Q4 SC Last administered on 10/10/18at 08:16; Admin Dose 2 UNIT; Start 10/07/18 at 21:00 Propofol 100 ml @ 2.433 mls/ hr Q12 IV Last administered on 10/10/18at 00:46; Admin Dose 4.866 MLS/HR; Start 10/08/18 at 21:30 Potassium Chloride (Potassium Chloride Pwd/Soln) 40 meq DAILY GTB Last administered on 10/10/18at 08:12; Admin Dose 40 MEQ; Start 10/09/18 at 07:53 Date/Time of Note Date/Time of Note DATE: 10/10/18 TIME: 09:23 KAYE CRUZ Oct 10, 2018 09:26
[2018-10-10] MEDS ORDERED: morphine (DRIP) 100 MG/100 ML 100 ML IV SCH (11:00)
--- NOTE | 2018-10-10 13:19 | PN ---
DATE: 10/10/2018 SUBJECTIVE: The patient remains completely unresponsive, ventilator dependent. I met with multiple family members. These included and 2 daughters. Patient's daughter has durable power of assistant district attorney. I reviewed the result of a brain CT, has very poor prognosis. I explained to them that the patient has been observed for 9 days with no improvement in his neurological condition. Family agreed terminal extubation. The order was placed. Dictated By: ZORAIDA DAHL/DARLENE Conf#: [id number] DID#: [id number] CC: CANDELARIA ARROYO MD;*End*
--- NOTE | 2018-10-26 12:12 | DS ---
DATE OF ADMISSION: 10/02/2018 DATE OF DISCHARGE: 10/10/2018 DATE OF DISCHARGE: 10/10/2018. DIAGNOSES PRIOR TO DISCHARGE: 1. Septic shock. 2. Previous history of numerous strokes. 3. Acute kidney injury. 4. Type 2 diabetes mellitus. 5. Severe encephalopathy. HOSPITAL COURSE: A 68-year-old male with previous history of multiple CVA, was transferred from [facility] to [facility] Emergency Room for a low blood pressure. The patient was completely unresponsive. Initially it was thought that the patient was having septic shock. Despit e broad spectrum antibiotic therapy, his condition did not improve. CAT scan of brain showed acute i ntracranial hemorrhage and ischemic cerebrovascular accident. The patient remained obtunded during t he hospitalization. I had a long discussion with multiple family members including and daughters. They agreed with the terminal extubation. The patient was discharged home in the care of hospice following extubation . Dictated By: ZORAIDA DAHL/DARLENE Conf#: [id number] DID#: [id number]
== END 2018-10-10 21:20 | disposition hospice, home (50) | DRG 870 ==
LOC: E/R 23:35 → ICU 10-02 01:47
PROVIDERS: ADMIT Legal Medicine; ATTEND Legal Medicine
PROC: 5A1955Z Respiratory Ventilation, Greater than 96 Consecutive Hours (ICD-10-PCS; principal; 2018-10-02)
PROC: 0BH17EZ Insertion of Endotracheal Airway into Trachea, Via Natural or Artificial Opening (ICD-10-PCS; 2018-10-02)
PROC: 02HV33Z Insertion of Infusion Device into Superior Vena Cava, Percutaneous Approach (ICD-10-PCS; 2018-10-02)
PROC: 30233K1 Transfusion of Nonautologous Frozen Plasma into Peripheral Vein, Percutaneous Approach (ICD-10-PCS; 2018-10-02)
PROC: 0BP1XDZ Removal of Intraluminal Device from Trachea, External Approach (ICD-10-PCS; 2018-10-10)
DX: A41.9 Sepsis, unspecified organism (principal); R65.21 Severe sepsis with septic shock; J96.00 Acute respiratory failure, unspecified whether with hypoxia or hypercapnia; J69.0 Pneumonitis due to inhalation of food and vomit; N17.0 Acute kidney failure with tubular necrosis; E11.10 Type 2 diabetes mellitus with ketoacidosis without coma; I61.8 Other nontraumatic intracerebral hemorrhage; E87.2 Acidosis; E87.0 Hyperosmolality and hypernatremia; G93.49 Other encephalopathy; N18.9 Chronic kidney disease, unspecified; I12.9 Hypertensive chronic kidney disease with stage 1 through stage 4 chronic kidney disease, or unspecified chronic kidney disease; E11.22 Type 2 diabetes mellitus with diabetic chronic kidney disease; E87.5 Hyperkalemia; E86.0 Dehydration; G40.909 Epilepsy, unspecified, not intractable, without status epilepticus; I48.2 Chronic atrial fibrillation; I69.391 Dysphagia following cerebral infarction; R13.10 Dysphagia, unspecified; Z66 Do not resuscitate; Z93.1 Gastrostomy status
CPT/HCPCS: 31500; 36415; 36430; 36600; 70450; 70544; 70551; 71045; 76775; 80048; 80053; 80202; 81001; 81003; 81005; 82550; 82553; 82803; 82962; 83036; 83605; 83735; 84100; 84155; 84300; 84484; 85025; 85049; 85610; 85670; 85730; 86850; 86900; 86901; 87040; 87081; 87086; 93005; 93306; 94002; 94003; 94770; 96361; 96365; 96375; C9113; J0133; J0692; J1644; J1815; J1953; J2270; J2274; J2543; J3370; J3475; J3480; J7030; J7040; P9059